=== PATIENT | male | born 1955 | race Caucasian/White ===

== ENCOUNTER 2024-10-03 09:13 | Day surgery (SDC) | payer OTHER ==
[2024-09-29 11:49] LABS: Absolute Eosinophils 0.1 K/uL (0-0.5); Absolute Monocytes 0.5 K/uL (0.1-1.3); Absolute Neutrophil 3.2 K/uL (1.8-8.0); Basophils % 0.5 % (0-1.3); Hematocrit 40.4 % (39.6-49.0); Hemoglobin 14.2 g/dL (13.6-17.9); Lymphocytes % 20.8 % (15.3-44.8); MCH 34.3 pg (27.0-35.0); MCHC 35.2 g/dL (32.0-36.0); MCV 97.5 fL (80-100); MPV 8.1 fL (7.6-11.3); Monocytes % 9.9 % (3.3-12.3); Neutrophils % 65.8 % (41.7-73.7); Nucleated Red Blood Cells % 0.1 % (0-0); Platelets 201 thou/uL (152-406); RBC Red Blood Cell Count 4.14 M/uL (4.33-5.43); Red Cell Distribution Width 13.6 % (12.1-15.2)
[2024-09-29 12:04] LABS: Anion Gap 6.2 mEq/L (5.0-15.0); Potassium 4.2 mEq/L (3.5-5.1)
--- NOTE | 2024-09-29 12:06 | EKG ---
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
[2024-10-03] MEDS: Ringers Lactate 1,000 ML IV ONE (10:00)
[2024-10-03] MEDS ORDERED: BACITRACIN OINTMENT 14 GM TUBE TOP ONE (11:50)
[2024-10-03] MEDS ORDERED: ONDANSETRON 4 MG/2 ML VIAL ONE (12:52)
[2024-10-03] MEDS ORDERED: LIDOCAINE 1% MPF 5 ML VIAL ONE (12:52)
[2024-10-03] MEDS ORDERED: MIDAZOLAM HCL 2 MG/2 ML INJ ONE (12:52)
[2024-10-03] MEDS ORDERED: propofoL 200 MG/20 ML VIAL IV ONE (12:52)
[2024-10-03] MEDS ORDERED: dexAMETHasone 10 MG/ML VIAL ONE (12:52)
[2024-10-03] MEDS ORDERED: ROCURONIUM 50 MG/5 ML VIAL IV ONE (12:52)
[2024-10-03] MEDS ORDERED: FENTANYL CITR 100 MCG/2 ML ONE (12:52)
[2024-10-03] MEDS ORDERED: GLYCOPYRROLATE 0.2 MG/ML SYR ONE ×3 (13:42→14:29)
[2024-10-03] MEDS: OXYMETAZOLINE HCL 0.05% 30ML NAS ONE (13:43)
[2024-10-03] MEDS: LIDOCAINE HCL/EPINEPHRINE 20 ML MDV ONE (13:44)
[2024-10-03] MEDS ORDERED: NEOSTIGMINE 1 MG/ML -10 ML VIAL ONE (14:29)
--- NOTE | 2024-10-03 14:55 | P.OP ---
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 The head of bed was turned 90 degrees. The patient's nasal hairs were trimmed using scissors and a nasal speculum with headlight for visualization. The patient was noted to have an S shaped septal deviation with stable right mid septal mucositis. There is no obvious ulcer ation or mass or clear sign of septal perforation. The increased risk of septal perforation was discussed with the patient during his preoperative visit. The septum was injected with 1% lidocaine with epinephrine. A total of 2 and half milliliters were used. The nose was packed with Afrin-soaked pledgets and the patient was prepped in a standard fashion for nasal surgery. Using a headlight and nasal speculum a right hemitransfixion incision was created along the caudal aspect of the nasal septum. Using a Robbin elevator the left mucoperichondrial/periosteal flap was elevated without difficulty. There was no evidence of any laceration of the mucosa. The right mucosal flap was elevated in similar fashion, taking care particularly around the area of mucositis. Despite the visible mucositis, the cartilaginous aspect of the mucosa appeared unremarkable and there was no visible sign of deep inflammation. There was no evidence of mucosal ulceration or perforation. Taking care to leave a 1 cm L-strut the cartilage was in sized and elevated from the floor of the nose and from at the osteo cartilaginous junction. The cartilage was removed with Arnold. Additional judicious removal of bone was made using Minaya rongeurs, [place] elevator and Arnold forceps. Overall this resulted in significant improvement in the patient's septal deviation bilaterally. A needlepoint Bovie the was used to perform submucosal ablation of the left and right inferior turbinate. The Bovie was inserted to its full unprotected length and at the inferior mid and upper portion of the right and then left turbinate. At each location the Bovie was activated for approximately 10 seconds to provide submucosal cauterization and ablation of the submucosal tissues. Minimal bleeding was noted. The previously removed cartilage was inspected on the back table. A 1 x 1.5 portion of the cartilage was cut and shaved to form a thin planar cartilage graft. This cartilage graft was then positioned between the mucosal flaps underlying the area of right mucosal inflammation. The purpose of graft placement was to reduce risk of septal perforation. The graft was secured to the mucosa using a through and through quilting stitch on a small Adrien needle. Once the mucosal flaps were well-approximated, the hemitransfixion incision was closed in a running fashion using a plain gut suture. Meraz splints were then placed in the right and left nasal cavity and secured to the septum using a 4-0 nylon suture. Rationale for splint placement includes protection of the mucosa with hopes of preventing drying and crusting of the right area of mucositis to aid in healing. Following completion of the procedure, all pledget and sponge counts were correct. The patient was returned to care of anesthesia for awakening, extubation and transferred to the recovery room. The patient appeared to be in stable condition. Disposition: The patient will be discharged home later today and follow-up with Dr. Stanley office in approximately 10 days for removal of Meraz splints. His is instructed in regards to nasal precautions and written postoperative instructions will be distributed prior to discharge as well. Complications: None Implants: Meraz Splints Fluids & blood products: see anesthesia Transferred to: Recovery Room Condition: Good
[2024-10-03 14:58] VITALS: O2SAT 97
[2024-10-03] MEDS ORDERED: OXYMETAZOLINE HCL 0.05% 30ML NAS ONE (15:43)
[2024-10-03 16:03] VITALS: BP 149/81; TEMP 97.3
== END 2024-10-03 15:50 | disposition home or self-care (01) ==
LOC: OR 09:13
PROVIDERS: ATTEND Otolaryngology
PROC: 09BL7ZZ Excision of Nasal Turbinate, Via Natural or Artificial Opening (ICD-10-PCS; 2024-10-03)
PROC: 09BM8ZZ Excision of Nasal Septum, Via Natural or Artificial Opening Endoscopic (ICD-10-PCS; principal; 2024-10-03 11:45)
DX: J34.2 Deviated nasal septum (principal); J34.89 Other specified disorders of nose and nasal sinuses; J34.3 Hypertrophy of nasal turbinates
CPT/HCPCS: 30520; 93005; 85025; 80048; 36415; 88300; 30802; J2704; J2710; J2003; J2250; J3010; J1100; J2405; J7120

== ENCOUNTER 2025-02-17 21:31 | Emergency (ER) | payer OTHER ==
--- OUTSIDE RECORDS SUMMARY | 2025-02-17 21:42 | XMS REPORT | Continuity of Care Document ---
Author Name Unknown Address [address] [facility] [address] [place] [address] [facility] Address [address] [facility]. [address] [place] [address] Care Team Providers Care Servicing Rep Name Role Phone Suleman PICKARD,MPH,FACP, Paul Primary Care Physician Roger Fragoso Attending Clinician Unavailable LIDA SANABRIA Attending Clinician Unavail able MARVIN MARTIN Attending Clinician Unavailab yamel QUINTANA MD Attending Clinician Unavailab GERMANIA Richardson Attending Clinician Unavailable JANNET SMITH Attending Clinician Unavailable [id number] Attending Clinician Unavailable HAM MOODY Attending Clinician Unavaila JUDAH Castro Attending Clinician Unavailabl e [id number] Attending Clinician Unavailable MARISELA DUQUE Attending Clinician Unavailab DOUGLAS Dolan Attending Clinician Unava ilable LAB90 Attending Clinician Unavailable DORA RICHARDSON Attending Clinician Unavailab MAUREEN Simmons Attending Clinician Unavail able LAB08 Attending Clinician Unavailable FELICIA HOLLOWAY Attending Clinician Unavailable CHUCHO YEPEZ Attending Clinician Unavailable TOMOGRAPHY, CK OPTICAL COHERENCE Attending Marlon solis Unavailable COVID-PFIZER VACC, CLEAR SO Attending Avinashia n Unavailable Lida Sanabria MD Attending Clinician [phone] ATUL SILVA Attending Clinician Unavailable Atul Silva MD Attending Clinician [phone] [id number] Attending Clinician Unavailable RENNY CHRISTOPHER Attending Clinician UnavailJannet Cabrera MD Attending Clinician [phone] COVID-PFIZER BOOSTER, CLEAR SO Attending Marlon solis Unavailable COVID-PFIZER BOOSTER, [place] Attending Clinici an Unavailable FLU, CLEAR SO Attending Clinician Unavailable ANGEL PAREKH APRN Attending Clinician UnavailALICE Villanueva M.D. Attending Clinician Unavailable ERNESTINA CORDOVA M.D. Attending Clinician Unavail SAMIRA Anguiano M.D. Attending Clinician UnaOTILIO Phillips D.O. Attending Clinician Unavail able Payers Payer Name Policy Type Policy Number Effective Date Expirati on Date Source [facility] HMO-POS 16 [id number] 2022 00:00:00 [place] [facility] [id number] O [id number] 2024 00:00:00 BCBS 2 [id number] 2019 00:00:00 Problems Condition Name Condition Details Condition Category Status Onset Date Resolution Date Last Treatment Date Treating Clinician Comments Source Type 2 diabetes mellitus without complicati on, without long-term current use of insulin (multi HCC) Type 2 diabetes mellitus without complicati on, without long-term current use of insulin (multi HCC) Disease Active 01-03 00:00: 00 Nohelia Powellold - Externa l Well adult exam Well adult exam Disease Active 11-26 00:00: 00 Nohelia Hyde - Externa l Restless leg syndrome Restless leg syndrome Disease Active 11-26 00:00: 00 Nohelia Sekylieold - Externa l 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 Active 07-04 00:00: 00 Nohelia Hyde - Externa shante Seropositi ve rheumatoid arthritis (multi HCC) Seropositi ve rheumatoid arthritis (multi HCC) Disease Active 2015-06 0 00:00: 00 Nohelia Hyde - Externa shante Arthralgia Arthralgia Disease Active 02-14 00:00: 00 Nohelia Hyde - Externa shante History of rheumatoid arthritis History of rheumatoid arthritis [facility] Encounter for monitoring of methotrexa te therapy Encounter for monitoring of methotrexa te therapy Problem Active [facility] Need for shingles vaccine Need for shingles vaccine Problem Active [facility] Non-recurr ent acute serous otitis media of left ear Non-recurr ent acute serous otitis media of left ear Problem Active [facility] Viral sinusitis Viral sinusitis Problem Active [facility] Need for hepatitis C screening test Need for hepatitis C screening test Problem Active [facility] Encounter for wellness examinatio n in adult Encounter for wellness examinatio n in adult Problem Active [facility] Hyperlipid emia Hyperlipid emia Problem Active [facility] Seropositi ve rheumatoid arthritis of multiple sites Seropositi ve rheumatoid arthritis of multiple sites Problem Active [facility] BMI 30.0-30.9, adult BMI 30.0-30.9, adult Problem Active [facility] Colon cancer screening Colon cancer screening Problem Active [facility] Wheezing Wheezing Problem Active [facility] Acute purulent bronchitis Acute purulent bronchitis Problem Active [facility] Elevated blood pressure reading without diagnosis of hypertensi on Elevated blood pressure reading without diagnosis of hypertensi on Problem Active [facility] BMI 31.0-31.9, adult BMI 31.0-31.9, adult Problem Active [facility] [id number] Mixed hyperlipid emia Problem [facility] [id number] Essential hypertensi on Problem [facility] [id number] Rheumatoid arteritis Problem [facility] Deviated septum Deviated septum Disease Active Nohelia Powellold - Externa l Family History Family Member Diagnosis Comments Start Date Stop Date Sourc e Grandmother Family history of leukemia [facility] Mother Family history of sy stemic lupus erythematosus [facility] Father Family history of Emphysema, compensatory [facility] Social History Social Habit Start Date Stop Date Quantity Comments Source History of Tobacco Use [facility] Sex Assigned At [facility] Exposure to SARS-CoV-2 (event) Not sure Nohelia duff History of Occupation Nohelia Hyde - External History SDOH Alcohol Frequency Nohelia song - External History SDOH Alcohol Std Drinks Nohelia duff - External History SDOH Alcohol Binge Nohelia Hyde - External Gender identity Mikki Powellold - External Sexual orientation Shanon Powellold - External Alcoholic beverage intake 2024-07-07 00:00:00 2024-07-07 00:00:00 Current drinker of alcohol (finding) Nohelia Hyde - External History of Social function 2023-11-27 00:00:00 2023-11-27 00:00:00 Nohelia Hdye - External Alcohol intake 2023-08-23 00:00:00 2023-08-23 00:00:00 Current drinker of alcohol (finding) Nohelia Hyde - External Tobacco use and exposure 2021-09-01 00:00:00 2021-09-01 00:00:00 Smokeless tobacco non-user Nohelia Hyde - External Sex 2012-06-19 19:37:33 2012-06-19 19:37:33 Male (finding) Nohelia Hyde - External Alcohol Comment 2008-04-08 00:00:00 2008-04-08 00:00:00 rarely Nohelia Hyde - External Smoking Status Start Date Stop Date Source Ex-smoker (finding) [facility] Never Smoker [facility] Medications Ordered Medication Name Filled Medication Name Start Date Stop Date Current Medication? Ordering Clinician Indication Dosage Frequency Signature (SIG) Comments Components Source Fexofenadin e (Cierra Allergy) 180 MG oral Tablet 07-07 11:18: 25 Yes 180mg QD Take 1 tablet (180 mg total) by mouth daily. Nohelia frey Amoxicillin -Pot Clavulanate 500-125 MG oral Tablet 07-07 00:00: 00 Yes [id number] 1{tbl} Take 1 tablet by mouth every 12 hours Please take with food. Nohelia frey Scopolamine (TRANSDERM- SCOP) 1 MG/3DAYS transdermal PATCH 72 HR 07-07 00:00: 00 Yes [id number] 1{patch } Place 1 patch onto the skin every 3 days. Nohelia frey Methylpredn isolone Acetate (DEPO-MEDRO L) [80 mg/ml] 2023-06 10:39: 39 No [id number] 80mg 80 mg, intramuscu lar, ONCE, On Sun05/08/24 at 1045, For 1 dose Nohelia frey Fexofenadin e (Cierra Allergy) 180 MG oral Tablet 2023-06 10:25: 20 Yes 180mg QD Take 1 tablet (180 mg total) by mouth daily. Nohelia frey Blood Glucose Monitoring Suppl (ONE TOUCH ULTRA 2) w/Device does not apply Kit 2023-06 00:00: 00 Yes [id number] USE DIRECTED TWICE A DAY. Nohelia frey Doxycycline Hyclate 100 MG oral Tablet 2023-06 00:00: 00 07-07 00:00 :00 No [id number] 100mg Q.5D Take 1 tablet (100 mg total) by mouth 2 times daily. Nohelia frey Blood Glucose Monitoring Suppl (ONE TOUCH ULTRA 2) w/Device does not apply Kit 01-08 00:00: 00 Yes [id number] USE DIRECTED TWICE A DAY. Nohelia frey Fexofenadin e (Cierra Allergy) 180 MG oral Tablet 01-03 08:01: 17 Yes 180mg QD Take 1 tablet (180 mg total) by mouth daily. Nohelia frey Blood Glucose Monitoring Suppl (Blood Glucose Monitor System) w/Device does not apply Kit 01-03 00:00: 00 Yes [id number] Use as directed twice daily. Nohelia frey Glucose Blood in vitro Strip 01-03 00:00: 00 Yes [id number] 1{each} QD 1 each by other route daily Use as directed twice daily. Nohelia frey Lancets 33G does not apply Misc 01-03 00:00: 00 Yes [id number] 1{each} Q.5D 1 each by does not apply route 2 times daily. Nohelia frey Fexofenadin e (Cierra Allergy) 180 MG oral Tablet 01-02 13:05: 56 Yes 180mg QD Take 1 tablet (180 mg total) by mouth daily. Nohelia frey Blood Glucose Monitoring Suppl (Blood Glucose Monitor System) w/Device does not apply Kit 12-09 00:00: 00 01-03 00:00 :00 No [id number] Use as directed twice daily. Nohelia frey Glucose Blood in vitro Strip 12-09 00:00: 00 01-03 00:00 :00 No [id number] 1{each} QD 1 each by other route daily Use as directed twice daily. Nohelia frey Lancets 33G does not apply Misc 12-09 00:00: 00 01-03 00:00 :00 No [id number] 1{each} Q.5D 1 each by does not apply route 2 times daily. Nohelia frey Metformin HCl 500 MG oral Tablet 12-01 00:00: 00 05-08 00:00 :00 No [id number] 500mg Take 1 tablet (500 mg total) by mouth in the morning and 1 tablet (500 mg total) in the evening. Take with meals. Nohelia frey Fexofenadin e (Cierra Allergy) 180 MG oral Tablet 11-26 07:57: 11 Yes 180mg QD Take 1 tablet (180 mg total) by mouth daily. Nohelia frey ROPINIROLE HYDROCHLORI DE 0.5 MG oral Tablet 11-26 00:00: 00 01-03 00:00 :00 No [id number] .75mg Take 1.5 tablets (0.75 mg total) by mouth at bedtime. Nohelia frey ROPINIROLE HYDROCHLORI DE 0.5 MG oral Tablet 18 00:00: 00 Yes .5mg Take 1 tablet (0.5 mg total) by mouth at bedtime. Nohelia frey Atorvastati n Calcium 20 MG oral Tablet 3-15 00:00: 00 Yes 20mg QD Take 1 tablet (20 mg total) by mouth daily. Nohelia frey Mometasone Furoate 50 MCG/ACT nasal Suspension 1-15 00:00: 00 08-19 00:00 :00 No 50ug Use 1 spray (50 mcg total) in each nostril 2 times daily A DAY. Nohelia frey Omeprazole 40 MG oral Delayed Release Capsule 2022-06 0-27 00:00: 00 Yes [id number] 40mg Take 1 capsule (40 mg total) by mouth daily. Nohelia frey Amoxicillin (AMOXIL) 500 MG oral Capsule 2022-06 0- 00:00: 00 Yes [id number] 1000mg Take 2 capsules (1,000 mg total) by mouth 2 times daily. Nohelia frey Clarithromy barbara 500 MG oral Tablet 2022-06 0 00:00: 00 Yes [id number] 500mg Take 1 tablet (500 mg total) by mouth 2 times daily. Nohelia frey Mometasone Furoate 50 MCG/ACT nasal Suspension 17 00:00: 00 Yes SPRAY 1 SPRAY INTO EACH NOSTRIL TWICE A DAY Nohelia frey FLUTICASONE PROPIONATE, NASAL, 50 MCG/ACT nasal Suspension 09-21 10:09: 33 09-21 00:00 :00 No 50ug Use 1 spray (50 mcg total) in each nostril daily Nohelia frey Mometasone Furoate (Nasonex) 50 MCG/ACT nasal Suspension 20 00:00: 00 Yes 50ug Use 1 spray (50 mcg total) in each nostril 2 times daily Nohelia frey Folic Acid 1 MG oral tablet 1-31 00:00: 00 Yes [id number] 2mg QD Take 2 tablets (2 mg total) by mouth daily Nohelia Ambrizvastati n Calcium 20 MG oral Tablet 07-04 00:00: 00 Yes 20mg Take 1 tablet (20 mg total) by mouth daily Nohelia frey Fexofenadin e-Pseudoeph edrine 60-120 MG oral Tablet 12 Hour Sustained Release 07-04 00:00: 00 12-07 00:00 :00 No 1{tbl} Take 1 tablet by mouth 2 times daily Nohelia frey Atorvastati n Calcium 20 MG oral Tablet 2021-06 00:00: 00 07-04 00:00 :00 No 20mg Take 1 tablet (20 mg total) by mouth daily Nohelia frey Folic Acid 1 MG oral tablet 2021-06 00:00: 00 07-04 00:00 :00 No [id number] 2mg Take 2 tablets (2 mg total) by mouth daily Nohelia frey Folic Acid 1 MG oral tablet 07-28 00:00: 00 Yes [id number] 2mg Take 2 tablets (2 mg total) by mouth daily Nohelia frey ELECTROLYTE SOLN (GOLYTELY) 236 g oral Recon Soln 07-13 00:00: 00 07-04 00:00 :00 No As directed Nohelia frey Sod Picosulfate -Mag Ox-Cit Acd (Clenpiq) 10-3.5-12 MG-GM -GM/160ML oral Solution 07-04 00:00: 00 Yes [id number] Instructio n given to patient in clinic. Use as directed by provider during office visit. Nohelia Hyde Cetirizine HCl (ZYRTEC OR) 2020-06 13:57: 03 05-06 00:00 :00 No 1{tbl} Take 1 tablet by mouth daily Nohelia Hyde Folic Acid 1 MG oral tablet 2020-06 00:00: 00 Yes [id number] 2mg Take 2 tablets (2 mg total) by mouth daily Nohelia Ambrizvastakylie carl Calcium 20 MG oral Tablet 2020-06 00:00: 00 Yes 20mg Take 1 tablet (20 mg total) by mouth daily Nohelia frey Fexofenadin e-Pseudoeph edrine 60-120 MG oral Tablet 12 Hour Sustained Release 2020-06 00:00: 00 07-04 00:00 :00 No 1{tbl} Take 1 tablet by mouth 2 times daily Nohelia frey Cetirizine HCl (ZYRTEC OR) 2020-06 0 13:30: 04 Yes 1{tbl} Take 1 tablet by mouth daily Nohelia Hyde Atorvastati n Calcium 20 MG oral Tablet 02-18 00:00: 00 Yes 20mg Take 1 tablet (20 mg total) by mouth daily Nohelia Hyde predniSONE 20 MG Oral Tablet predniSONE 20 MG Oral Tablet 2018-06 00:00: 00 Yes ANGEL IGLESIA FACILITY SERVICE MANAGER Take 1 tab by mouth twice daily for 5 days [facility] Doxycycline Monohydrate 100 MG Oral Capsule Doxycycline Monohydrate 100 MG Oral Capsule 2018-06 00:00: 00 Yes ANGEL IGLESIA FACILITY SERVICE MANAGER Q12H TAKE 1 CAPSULE EVERY 12 HOURS DAILY. [facility] Benzonatate 200 MG Oral Capsule Benzonatate 200 MG Oral Capsule 2018-06 00:00: 00 Yes ANGEL PAREKH FACILITY SERVICE MANAGER TAKE 1 CAPSULE BY MOUTH EVERY 8 HOURS NEEDED FOR COUGH [facility] Promethazin e-DM 6.25-15 MG/5ML Oral Syrup Promethazin e-DM 6.25-15 MG/5ML Oral Syrup 2018-06 00:00: 00 Yes ANGEL XIAOE FACILITY SERVICE MANAGER TAKE 5 ML EVERY 4 TO 6 HOURS NEEDED FOR COUGH. [facility] Atorvastati n Calcium 20 MG Oral Tablet Atorvastati n Calcium 20 MG Oral Tablet 2017-06 00:00: 00 Yes OTILIO Masterson.O. TAKE ONE TABLET BY MOUTH EVERY NIGHT AT BEDTIME NEEDS 6 MONTH FOLLOW-UP AND LABS [facility] Centrum Oral Tablet Centrum Oral Tablet 10-02 00:00: 00 Yes 1 QD TAKE 1 TABLET DAILY. [facility] ZyrTEC Allergy 10 MG Oral Capsule ZyrTEC Allergy 10 MG Oral Capsule 12-26 00:00: 00 Yes 1 QD TAKE 1 CAPSULE DAILY PRN [facility] Folic Acid 1 MG Oral Tablet Folic Acid 1 MG Oral Tablet 09-26 00:00: 00 Yes ALICE CERRATO M.D. 2 QD TAKE 2 TABLETS BY MOUTH DAILY [facility] [place] 3 1200 MG Oral Capsule [place] 3 1200 MG Oral Capsule 07-18 00:00: 00 Yes TAKE DIRECTED. [facility] Methotrexat e 2.5 MG Oral Tablet Methotrexat e 2.5 MG Oral Tablet 07-18 00:00: 00 Yes ALICE CERRATO M.D. 6 1xW TAKE 6 TABLET WEEKLY [facility] Naproxen 500 MG Oral Tablet Naproxen 500 MG Oral Tablet 07-18 00:00: 00 Yes ALICE CERRATO M.D. Q12H TAKE 1 TABLET EVERY 12 HOURS PRN pain AFTER MEALS [facility] Hydroxychlo roquine Sulfate 200 MG Hydroxychlo roquine Sulfate 200 MG No Hydroxychl oroquine Sulfate 200 MG Pantoprazol e Sodium 40 MG Pantoprazol e Sodium 40 MG No QD Pantoprazo le Sodium 40 MG rOPINIRole HCl 1 MG rOPINIRole HCl 1 MG No rOPINIRole HCl 1 MG Naproxen 500 MG Naproxen 500 MG No Naproxen 500 MG Methotrexat e Sodium 2.5 MG Methotrexat e Sodium 2.5 MG No Methotrexa te Sodium 2.5 MG Atorvastati n Calcium 20 MG Atorvastati n Calcium 20 MG No 1{table t} QD Atorvastat in Calcium 20 MG Lisinopril- hydroCHLORO thiazide 20-12.5 MG Lisinopril- hydroCHLORO thiazide 20-12.5 MG No 1{table t} BID Lisinopril -hydroCHLO ROthiazide 20-12.5 MG Folic Acid 1 MG Folic Acid 1 MG No 1{table t} QD Folic Acid 1 MG Immunizations Ordered Immunization Name Filled Immunization Name Date Status Comments Source COVID-19 Bivalent vaccine [facility] 2022-04-28 00:00:00 Sidney Barrera COVID-19 Bivalent Booster vaccine [facility] 2022-04-28 00:00:00 Sidney Hyde External COVID-19 Bivalent Booster vaccine PFIZER 2022-04-28 00:00:00 Completed Nohelia Seybold - External COVID-19 Bivalent Booster vaccine PFIZER 2022-04-28 00:00:00 Completed Nohelia Seybold - External COVID-19 Bivalent Booster vaccine PFIZER 2022-04-28 00:00:00 Completed Nohelia Seybold - External COVID-19 Bivalent Booster vaccine PFIZER 2022-04-28 00:00:00 Completed Nohelia Seybold - External COVID-19 Bivalent Booster vaccine PFIZER 2022-04-28 00:00:00 Completed Nohelia Seybold - External COVID-19 Bivalent vaccine PFIZER 2022-04-28 00:00:00 Completed Nohelia Seybold - External Influenza vaccine, quadrivalent, adjuvanted 2022-03-11 00:00:00 Completed Nohelia Seybold - External Influenza vaccine, quadrivalent, adjuvanted 2022-03-11 00:00:00 Completed Nohelia Seybold - External Influenza vaccine, quadrivalent, adjuvanted 2022-03-11 00:00:00 Completed Nohelia Seybold - External Influenza vaccine, quadrivalent, adjuvanted 2022-03-11 00:00:00 Completed Nohelia Seybold - External Influenza vaccine, quadrivalent, adjuvanted 2022-03-11 00:00:00 Completed Nohelia Seybold - External Influenza vaccine, quadrivalent, adjuvanted 2022-03-11 00:00:00 Completed Nohelia Seybold - External Influenza vaccine, quadrivalent, adjuvanted 2022-03-11 00:00:00 Completed Nohelia Seybold - External Influenza vaccine, quadrivalent, adjuvanted 2022-03-11 00:00:00 Completed Nohelia Seybold - External COVID-19 VACCINE PFIZER + (Renteria cap) 2021-12-01 00:00:00 Completed Nohelia Seybold - External COVID-19 VACCINE PFIZER + (Renteria cap) 2021-12-01 00:00:00 Completed Nohelia Seybold - External COVID-19 VACCINE PFIZER + (Renteria cap) 2021-12-01 00:00:00 Completed Nohelia Seybold - External COVID-19 VACCINE PFIZER + (Renteria cap) 2021-12-01 00:00:00 Completed Nohelia Seybold - External COVID-19 VACCINE PFIZER 12+ (Renteria cap) 2021-12-01 00:00:00 Completed Nohelia Seybold - External COVID-19 VACCINE PFIZER 12+ (Renteria cap) 2021-12-01 00:00:00 Completed Nohelia Seybold - External COVID-19 VACCINE PFIZER 12+ (Renteria cap) 2021-12-01 00:00:00 Completed Nohelia Seybold - External COVID-19 VACCINE PFIZER 12+ (Renteria cap) 2021-12-01 00:00:00 Completed Nohelia Seybold - External COVID-19 VACCINE PFIZER 12+ (Renteria cap) 2021-12-01 00:00:00 Completed Nohelia Seybold - External COVID-19 VACCINE PFIZER 12+ (Renteria cap) 2021-12-01 00:00:00 Completed Nohelia Seybold - External Pneumococcal Vaccine, Polysaccharide 2021-05-06 00:00:00 Completed Nohelia Seybold Pneumococcal Vaccine, Polysaccharide 2021-05-06 00:00:00 Completed Nohelia Seybold Pneumococcal Vaccine, Polysaccharide 2021-05-06 00:00:00 Completed Nohelia Seybold - External Pneumococcal Vaccine, Polysaccharide 2021-05-06 00:00:00 Completed Nohelia Seybold - External Pneumococcal Vaccine, Polysaccharide 2021-05-06 00:00:00 Completed Nohelia Seybold - External Pneumococcal Vaccine, Polysaccharide 2021-05-06 00:00:00 Completed Nohelia Seybold - External Pneumococcal Vaccine, Polysaccharide 2021-05-06 00:00:00 Completed Nohelia Seybold - External Pneumococcal Vaccine, Polysaccharide 2021-05-06 00:00:00 Completed Nohelia Seybold - External Pneumococcal Vaccine, Polysaccharide 2021-05-06 00:00:00 Completed Nohelia Seybold - External Pneumococcal Vaccine, Polysaccharide 2021-05-06 00:00:00 Completed Nohelia Seybold - External Pneumococcal Vaccine, Polysaccharide 2021-05-06 00:00:00 Completed Nohelia Seybold - External Pneumococcal Vaccine, Polysaccharide 2021-05-06 00:00:00 Completed Nohelia Seybold - External Pneumococcal Vaccine, Polysaccharide 2021-05-06 00:00:00 Completed Nohelia Seybold Covid-19 Vaccine (Pfizer), Mrna-lnp, Jl Protein, Pf, 30mcg/0.3ml,IM 2021-03-31 00:00:00 Completed Nohelia Seybold Covid-19 Vaccine (Pfizer), Mrna-lnp, Jl Protein, Pf, 30mcg/0.3ml,IM 2021-03-31 00:00:00 Completed Nohelia Seybold Covid-19 Vaccine (Pfizer), Mrna-lnp, Jl Protein, Pf, 30mcg/0.3ml,IM 2021-03-31 00:00:00 Completed Nohelia Seybold - External Covid-19 Vaccine (Pfizer), Mrna-lnp, Jl Protein, Pf, 30mcg/0.3ml,IM 2021-03-31 00:00:00 Completed Nohelia Seybold - External Covid-19 Vaccine (Pfizer), Mrna-lnp, Jl Protein, Pf, 30mcg/0.3ml,IM 2021-03-31 00:00:00 Completed Nohelia Seybold - External Covid-19 Vaccine (Pfizer), Mrna-lnp, Jl Protein, Pf, 30mcg/0.3ml,IM 2021-03-31 00:00:00 Completed Nohelia Seybold - External Covid-19 Vaccine (Pfizer), Mrna-lnp, Jl Protein, Pf, 30mcg/0.3ml,IM 2021-03-31 00:00:00 Completed Nohelia Seybold - External Covid-19 Vaccine (Pfizer), Mrna-lnp, Jl Protein, Pf, 30mcg/0.3ml,IM 2021-03-31 00:00:00 Completed Nohelia Seybold - External Covid-19 Vaccine (Pfizer), Mrna-lnp, Jl Protein, Pf, 30mcg/0.3ml,IM 2021-03-31 00:00:00 Completed Nohelia Seybold - External Covid-19 Vaccine (Pfizer), Mrna-lnp, Jl Protein, Pf, 30mcg/0.3ml,IM 2021-03-31 00:00:00 Completed Nohelia Seybold - External Covid-19 Vaccine (Pfizer), Mrna-lnp, Jl Protein, Pf, 30mcg/0.3ml,IM 2021-03-31 00:00:00 Completed Nohelia Seybold - External Covid-19 Vaccine ([email or web address]), Mrna-lnp, Jl Protein, Pf, 30mcg/0.3ml,IM 2021-03-31 00:00:00 Completed Nohelia Seybold - External Covid-19 Vaccine (Pfizer), Mrna-lnp, Jl Protein, Pf, 30mcg/0.3ml,IM 2021-03-31 00:00:00 Completed Nohelia Seybold Influenza Virus Vaccine, Quadrivalent, High Dose, Age 65 And Up 2021-02-26 00:00:00 Completed Nohelia Seybold Influenza Virus Vaccine, Quadrivalent, High Dose, Age 65 And Up 2021-02-26 00:00:00 Completed Nohelia Seybold Influenza Virus Vaccine, Quadrivalent, High Dose, Age 65 And Up 2021-02-26 00:00:00 Completed Nohelia Seybold - External Influenza Virus Vaccine, Quadrivalent, High Dose, Age 65 And Up 2021-02-26 00:00:00 Completed Nohelia Seybold - External Influenza Virus Vaccine, Quadrivalent, High Dose, Age 65 And Up 2021-02-26 00:00:00 Completed Nohelia Seybold - External Influenza Virus Vaccine, Quadrivalent, High Dose, Age 65 And Up 2021-02-26 00:00:00 Completed Nohelia Seybold - External Influenza Virus Vaccine, Quadrivalent, High Dose, Age 65 And Up 2021-02-26 00:00:00 Completed Nohelia Seybold Influenza Virus Vaccine, Quadrivalent, High Dose, Age 65 And Up 2021-02-26 00:00:00 Completed Nohelia Seybold - External Influenza Virus Vaccine, Quadrivalent, High Dose, Age 65 And Up 2021-02-26 00:00:00 Completed Nohelia Seybold - External Influenza Virus Vaccine, Quadrivalent, High Dose, Age 65 And Up 2021-02-26 00:00:00 Completed Nohelia Seybold - External Influenza Virus Vaccine, Quadrivalent, High Dose, Age 65 And Up 2021-02-26 00:00:00 Completed Nohelia Seybold - External Influenza Virus Vaccine, Quadrivalent, High Dose, Age 65 And Up 2021-02-26 00:00:00 Completed Nohelia Seybold - External Influenza Virus Vaccine, Quadrivalent, High Dose, Age 65 And Up 2021-02-26 00:00:00 Completed Nohelia Seybold - External Influenza Virus Vaccine, Quadrivalent, High Dose, Age 65 And Up 2021-02-26 00:00:00 Completed Nohelia Seybold Covid-19 Vaccine (Pfizer), Mrna-lnp, Jl Protein, Pf, 30mcg/0.3ml,IM 2020-09-03 00:00:00 Completed Nohelia Seybold Covid-19 Vaccine (Pfizer), Mrna-lnp, Jl Protein, Pf, 30mcg/0.3ml,IM 2020-09-03 00:00:00 Completed Nohelia Seybold Covid-19 Vaccine (Pfizer), Mrna-lnp, Jl Protein, Pf, 30mcg/0.3ml,IM 2020-09-03 00:00:00 Completed Nohelia Seybold - External Covid-19 Vaccine (Pfizer), Mrna-lnp, Jl Protein, Pf, 30mcg/0.3ml,IM 2020-09-03 00:00:00 Completed Nohelia Seybold - External Covid-19 Vaccine (Pfizer), Mrna-lnp, Jl Protein, Pf, 30mcg/0.3ml,IM 2020-09-03 00:00:00 Completed Nohelia Seybold - External Covid-19 Vaccine (Pfizer), Mrna-lnp, Jl Protein, Pf, 30mcg/0.3ml,IM 2020-09-03 00:00:00 Completed Nohelia Seybold - External Covid-19 Vaccine (Pfizer), Mrna-lnp, Jl Protein, Pf, 30mcg/0.3ml,IM 2020-09-03 00:00:00 Completed Nohelia Seybold Covid-19 Vaccine (Pfizer), Mrna-lnp, Jl Protein, Pf, 30mcg/0.3ml,IM 2020-09-03 00:00:00 Completed Nohelia Seybold - External Covid-19 Vaccine (Pfizer), Mrna-lnp, Jl Protein, Pf, 30mcg/0.3ml,IM 2020-09-03 00:00:00 Completed Nohelia Seybold - External Covid-19 Vaccine (Pfizer), Mrna-lnp, Jl Protein, Pf, 30mcg/0.3ml,IM 2020-09-03 00:00:00 Completed Nohelia Seybold - External Covid-19 Vaccine (Pfizer), Mrna-lnp, Jl Protein, Pf, 30mcg/0.3ml,IM 2020-09-03 00:00:00 Completed Nohelia Seybold - External Covid-19 Vaccine (Pfizer), Mrna-lnp, Jl Protein, Pf, 30mcg/0.3ml,IM 2020-09-03 00:00:00 Completed Nohelia Seybold - External Covid-19 Vaccine (Pfizer), Mrna-lnp, Jl Protein, Pf, 30mcg/0.3ml,IM 2020-09-03 00:00:00 Completed Nohelia Seybold - External Covid-19 Vaccine (Pfizer), Mrna-lnp, Jl Protein, Pf, 30mcg/0.3ml,IM 2020-09-03 00:00:00 Completed Nohelia Seybold Covid-19 Vaccine (Pfizer), Mrna-lnp, Jl Protein, Pf, 30mcg/0.3ml,IM 2020-08-13 00:00:00 Completed Nohelia Seybold Covid-19 Vaccine (Pfizer), Mrna-lnp, Jl Protein, Pf, 30mcg/0.3ml,IM 2020-08-13 00:00:00 Completed Nohelia Seybold Covid-19 Vaccine (Pfizer), Mrna-lnp, Jl Protein, Pf, 30mcg/0.3ml,IM 2020-08-13 00:00:00 Completed Nohelia Seybold - External Covid-19 Vaccine (Pfizer), Mrna-lnp, Jl Protein, Pf, 30mcg/0.3ml,IM 2020-08-13 00:00:00 Completed Nohelia Seybold - External Covid-19 Vaccine (Pfizer), Mrna-lnp, Jl Protein, Pf, 30mcg/0.3ml,IM 2020-08-13 00:00:00 Completed Nohelia Seybold - External Covid-19 Vaccine (Pfizer), Mrna-lnp, Jl Protein, Pf, 30mcg/0.3ml,IM 2020-08-13 00:00:00 Completed Nohelia Seybold - External Covid-19 Vaccine (Pfizer), Mrna-lnp, Jl Protein, Pf, 30mcg/0.3ml,IM 2020-08-13 00:00:00 Completed Nohelia Seybold Covid-19 Vaccine (Pfizer), Mrna-lnp, Jl Protein, Pf, 30mcg/0.3ml,IM 2020-08-13 00:00:00 Completed Nohelia Seybold - External Covid-19 Vaccine (Pfizer), Mrna-lnp, Jl Protein, Pf, 30mcg/0.3ml,IM 2020-08-13 00:00:00 Completed Nohelia Seybold - External Covid-19 Vaccine (Pfizer), Mrna-lnp, Jl Protein, Pf, 30mcg/0.3ml,IM 2020-08-13 00:00:00 Completed Nohelia Seybold - External Covid-19 Vaccine (Pfizer), Mrna-lnp, Jl Protein, Pf, 30mcg/0.3ml,IM 2020-08-13 00:00:00 Completed Nohelia Seybold - External Covid-19 Vaccine (Pfizer), Mrna-lnp, Jl Protein, Pf, 30mcg/0.3ml,IM 2020-08-13 00:00:00 Completed Nohelia Seybold - External Covid-19 Vaccine (Pfizer), Mrna-lnp, Jl Protein, Pf, 30mcg/0.3ml,IM 2020-08-13 00:00:00 Completed Nohelia Seybold - External Covid-19 Vaccine (Pfizer), Mrna-lnp, Jl Protein, Pf, 30mcg/0.3ml,IM 2020-08-13 00:00:00 Completed Nohelia Seybold Influenza Virus Vaccine, age 6 months and up 2020-02-25 00:00:00 Completed Nohelia Seybold Influenza Virus Vaccine, No Preserv, age 6 months and up 2020-02-25 00:00:00 Completed Nohelia Seybold Influenza Virus Vaccine, age 6 months and up 2020-02-25 00:00:00 Completed Nohelia Seybold Influenza Virus Vaccine, No Preserv, age 6 months and up 2020-02-25 00:00:00 Completed Nohelia Seybold Influenza Virus Vaccine, age 6 months and up 2020-02-25 00:00:00 Completed Nohelia Seybold - External Influenza Virus Vaccine, No Preserv, age 6 months and up 2020-02-25 00:00:00 Completed Nohelia Seybold - External Influenza Virus Vaccine, age 6 months and up 2020-02-25 00:00:00 Completed Nohelia Seybold - External Influenza Virus Vaccine, No Preserv, age 6 months and up 2020-02-25 00:00:00 Completed Nohelia Seybold - External Influenza Virus Vaccine, age 6 months and up 2020-02-25 00:00:00 Completed Nohelia Seybold - External Influenza Virus Vaccine, No Preserv, age 6 months and up 2020-02-25 00:00:00 Completed Nohelia Seybold - External Influenza Virus Vaccine, age 6 months and up 2020-02-25 00:00:00 Completed Nohelia Seybold Influenza Virus Vaccine, age 6 months and up 2020-02-25 00:00:00 Completed Nohelia Seybold - External Influenza Virus Vaccine, No Preserv, age 6 months and up 2020-02-25 00:00:00 Completed Nohelia Seybold - External Influenza Virus Vaccine, age 6 months and up 2020-02-25 00:00:00 Completed Nohelia Seybold - External Influenza Virus Vaccine, No Preserv, age 6 months and up 2020-02-25 00:00:00 Completed Nohelia Seybold - External Influenza Virus Vaccine, age 6 months and up 2020-02-25 00:00:00 Completed Nohelia Seybold - External Influenza Virus Vaccine, No Preserv, age 6 months and up 2020-02-25 00:00:00 Completed Nohelia Seybold - External Influenza Virus Vaccine, age 6 months and up 2020-02-25 00:00:00 Completed Nohelia Seybold - External Influenza Virus Vaccine, No Preserv, age 6 months and up 2020-02-25 00:00:00 Completed Nohelia Seybold - External Influenza Virus Vaccine, age 6 months and up 2020-02-25 00:00:00 Completed Nohelia Seybold - External Influenza Virus Vaccine, No Preserv, age 6 months and up 2020-02-25 00:00:00 Completed Nohelia Seybold - External Influenza Virus Vaccine, age 6 months and up 2020-02-25 00:00:00 Completed Nohelia Seybold - External Influenza Virus Vaccine, No Preserv, age 6 months and up 2020-02-25 00:00:00 Completed Nohelia Seybold - External Influenza Virus Vaccine, age 6 months and up 2020-02-25 00:00:00 Completed Nohelia Seybold - External Influenza Virus Vaccine, No Preserv, age 6 months and up 2020-02-25 00:00:00 Completed Nohelia Seybold - External Influenza Virus Vaccine, age 6 months and up 2020-02-25 00:00:00 Completed Nohelia Seybold Influenza Virus Vaccine, No Preserv, age 6 months and up 2020-02-25 00:00:00 Completed Nohelia Seybold Influenza Virus Vaccine, High Dose, Age 65 And Up 2019-02-20 00:00:00 Completed Nohelia Seybold Influenza Virus Vaccine, High Dose, Age 65 And Up 2019-02-20 00:00:00 Completed Nohelia Seybold Influenza Virus Vaccine, High Dose, Age 65 And Up 2019-02-20 00:00:00 Completed Nohelia Seybold - External Influenza Virus Vaccine, High Dose, Age 65 And Up 2019-02-20 00:00:00 Completed Nohelia Seybold - External Influenza Virus Vaccine, High Dose, Age 65 And Up 2019-02-20 00:00:00 Completed Nohelia Seybold - External Influenza Virus Vaccine, High Dose, Age 65 And Up 2019-02-20 00:00:00 Completed Nohelia Seybold - External Influenza Virus Vaccine, High Dose, Age 65 And Up 2019-02-20 00:00:00 Completed Nohelia Seybold - External Influenza Virus Vaccine, High Dose, Age 65 And Up 2019-02-20 00:00:00 Completed Nohelia Seybold - External Influenza Virus Vaccine, High Dose, Age 65 And Up 2019-02-20 00:00:00 Completed Nohelia Seybold - External Influenza Virus Vaccine, High Dose, Age 65 And Up 2019-02-20 00:00:00 Completed Nohelia Seybold - External Influenza Virus Vaccine, High Dose, Age 65 And Up 2019-02-20 00:00:00 Completed Nohelia Seybold - External Influenza Virus Vaccine, High Dose, Age 65 And Up 2019-02-20 00:00:00 Completed Nohelia Seybold - External Influenza Virus Vaccine, High Dose, Age 65 And Up 2019-02-20 00:00:00 Completed Nohelia Hyde Influenza 2019-02-20 00:00:00 Completed [facility] Shingrix 50 MCG Intramuscular Suspension Reconstituted 2019-02-19 09:51:00 Completed [facility] Shingles IM (Shingrix) 2019-02-19 00:00:00 Completed Nohelia Powellold Shingles IM (Shingrix) 2019-02-19 00:00:00 Completed Nohelia Sekylieold Shingles IM (Shingrix) 2019-02-19 00:00:00 Completed Nohelia Seybold - External Shingles IM (Shingrix) 2019-02-19 00:00:00 Completed Nohelia Seybold - External Shingles IM (Shingrix) 2019-02-19 00:00:00 Completed Nohelia Seybold - External Shingles IM (Shingrix) 2019-02-19 00:00:00 Completed Nohelia Seybold - External Shingles IM (Shingrix) 2019-02-19 00:00:00 Completed Nohelia Seybold - External Shingles IM (Shingrix) 2019-02-19 00:00:00 Completed Nohelia Seybold - External Shingles IM (Shingrix) 2019-02-19 00:00:00 Completed Nohelia Seybold - External Shingles IM (Shingrix) 2019-02-19 00:00:00 Completed Nohelia Seybold - External Shingles IM (Shingrix) 2019-02-19 00:00:00 Completed Nohelia Seybold - External Shingles IM (Shingrix) 2019-02-19 00:00:00 Completed Nohelia Seybold - External Shingles IM (Shingrix) 2019-02-19 00:00:00 Completed Nohelia Seybold Shingles IM (Shingrix) 2018-10-16 00:00:00 Completed Nohelia Seybold Shingles IM (Shingrix) 2018-10-16 00:00:00 Completed Nohelia Seybold Shingles IM (Shingrix) 2018-10-16 00:00:00 Completed Nohelia Seybold - External Shingles IM (Shingrix) 2018-10-16 00:00:00 Completed Nohelia Seybold - External Shingles IM (Shingrix) 2018-10-16 00:00:00 Completed Nohelia Seybold - External Shingles IM (Shingrix) 2018-10-16 00:00:00 Completed Nohelia Seybold Shingles IM (Shingrix) 2018-10-16 00:00:00 Completed Nohelia Seybold - External Shingles IM (Shingrix) 2018-10-16 00:00:00 Completed Nohelia Seybold - External Shingles IM (Shingrix) 2018-10-16 00:00:00 Completed Nohelia Seybold - External Shingles IM (Shingrix) 2018-10-16 00:00:00 Completed Nohelia Seybold - External Shingles IM (Shingrix) 2018-10-16 00:00:00 Completed Nohelia Seybold - External Shingles IM (Shingrix) 2018-10-16 00:00:00 Completed Nohelia Seybold - External Shingles IM (Shingrix) 2018-10-16 00:00:00 Completed Nohelia Seybold - External Shingles IM (Shingrix) 2018-10-16 00:00:00 Completed Nohelia Seybold Shingles IM (Shingrix) 2018-03-18 00:00:00 Completed Nohelia Seybold Shingles IM (Shingrix) 2018-03-18 00:00:00 Completed Nohelia Seybold Shingles IM (Shingrix) 2018-03-18 00:00:00 Completed Nohelia Seybold - External Shingles IM (Shingrix) 2018-03-18 00:00:00 Completed Nohelia Seybold - External Shingles IM (Shingrix) 2018-03-18 00:00:00 Completed Nohelia Seybold - External Shingles IM (Shingrix) 2018-03-18 00:00:00 Completed Nohelia Seybold Shingles IM (Shingrix) 2018-03-18 00:00:00 Completed Nohelia Seybold - External Shingles IM (Shingrix) 2018-03-18 00:00:00 Completed Nohelia Seybold - External Shingles IM (Shingrix) 2018-03-18 00:00:00 Completed Nohelia Seybold - External Shingles IM (Shingrix) 2018-03-18 00:00:00 Completed Nohelia Seybold - External Shingles IM (Shingrix) 2018-03-18 00:00:00 Completed Nohelia Seybold - External Shingles IM (Shingrix) 2018-03-18 00:00:00 Completed Nohelia Seybold - External Shingles IM (Shingrix) 2018-03-18 00:00:00 Completed Nohelia Seybold - External Shingles IM (Shingrix) 2018-03-18 00:00:00 Completed Nohelia Seybold Influenza Virus Vaccine, No Preserv, age 6 months and up 2018-02-11 00:00:00 Completed Nohelia Seybold Shingles IM (Shingrix) 2018-02-11 00:00:00 Completed Nohelia Seybold Influenza Virus Vaccine, No Preserv, age 6 months and up 2018-02-11 00:00:00 Completed Nohelia Seybold Shingles IM (Shingrix) 2018-02-11 00:00:00 Completed Nohelia Seybold Influenza Virus Vaccine, No Preserv, age 6 months and up 2018-02-11 00:00:00 Completed Nohelia Seybold - External Shingles IM (Shingrix) 2018-02-11 00:00:00 Completed Nohelia Seybold - External Influenza Virus Vaccine, No Preserv, age 6 months and up 2018-02-11 00:00:00 Completed Nohelia Seybold - External Shingles IM (Shingrix) 2018-02-11 00:00:00 Completed Nohelia Seybold - External Influenza Virus Vaccine, No Preserv, age 6 months and up 2018-02-11 00:00:00 Completed Nohelia Seybold - External Shingles IM (Shingrix) 2018-02-11 00:00:00 Completed Nohelia Seybold - External Influenza Virus Vaccine, No Preserv, age 6 months and up 2018-02-11 00:00:00 Completed Nohelia Seybold - External Shingles IM (Shingrix) 2018-02-11 00:00:00 Completed Nohelia Seybold - External Influenza Virus Vaccine, No Preserv, age 6 months and up 2018-02-11 00:00:00 Completed Nohelia Seybold - External Shingles IM (Shingrix) 2018-02-11 00:00:00 Completed Nohelia Seybold - External Influenza Virus Vaccine, No Preserv, age 6 months and up 2018-02-11 00:00:00 Completed Nohelia Seybold - External Shingles IM (Shingrix) 2018-02-11 00:00:00 Completed Nohelia Seybold - External Influenza Virus Vaccine, No Preserv, age 6 months and up 2018-02-11 00:00:00 Completed Nohelia Seybold - External Shingles IM (Shingrix) 2018-02-11 00:00:00 Completed Nohelia Seybold - External Influenza Virus Vaccine, No Preserv, age 6 months and up 2018-02-11 00:00:00 Completed Nohelia Seybold - External Shingles IM (Shingrix) 2018-02-11 00:00:00 Completed Nohelia Seybold - External Influenza Virus Vaccine, No Preserv, age 6 months and up 2018-02-11 00:00:00 Completed Nohelia Seybold - External Shingles IM (Shingrix) 2018-02-11 00:00:00 Completed Nohelia Seybold - External Influenza Virus Vaccine, No Preserv, age 6 months and up 2018-02-11 00:00:00 Completed Nohelia Seybold - External Shingles IM (Shingrix) 2018-02-11 00:00:00 Completed Nohelia Seybold - External Influenza Virus Vaccine, No Preserv, age 6 months and up 2018-02-11 00:00:00 Completed Nohelia Seybold Shingles IM (Shingrix) 2018-02-11 00:00:00 Completed Nohelia Hyde Fluzone Quadrivalent 0.5 ML Intramuscular Suspension Prefilled Syringe 2018-02-11 00:00:00 Completed [facility] Shingrix 50 MCG Intramuscular Suspension Reconstituted 2018-02-11 00:00:00 Completed [facility] Prevnar 13 Intramuscular Suspension 2018-01-29 09:53:00 Completed [facility] Pneumococcal Vaccine, Conjugate 13 2018-01-29 00:00:00 Completed Nohelia Hyde Pneumococcal Vaccine, Conjugate 13 2018-01-29 00:00:00 Completed Nohelia Seybold Pneumococcal Vaccine, Conjugate 13 2018-01-29 00:00:00 Completed Nohelia Seybold - External Pneumococcal Vaccine, Conjugate 13 2018-01-29 00:00:00 Completed Nohelia Seybold - External Pneumococcal Vaccine, Conjugate 13 2018-01-29 00:00:00 Completed Nohelia Seybold - External Pneumococcal Vaccine, Conjugate 13 2018-01-29 00:00:00 Completed Nohelia Seybold - External Pneumococcal Vaccine, Conjugate 13 2018-01-29 00:00:00 Completed Nohelia Seybold - External Pneumococcal Vaccine, Conjugate 13 2018-01-29 00:00:00 Completed Nohelia Seybold - External Pneumococcal Vaccine, Conjugate 13 2018-01-29 00:00:00 Completed Nohelia Seybold - External Pneumococcal Vaccine, Conjugate 13 2018-01-29 00:00:00 Completed Nohelia Seybold - External Pneumococcal Vaccine, Conjugate 13 2018-01-29 00:00:00 Completed Nohelia Seybold - External Pneumococcal Vaccine, Conjugate 13 2018-01-29 00:00:00 Completed Nohelia Seybold - External Pneumococcal Vaccine, Conjugate 13 2018-01-29 00:00:00 Completed Nohelia Seybold Influenza Virus Vaccine, High Dose, Age 65 And Up 2017-05-03 00:00:00 Completed Nohelia Seybold Influenza Virus Vaccine, High Dose, Age 65 And Up 2017-05-03 00:00:00 Completed Nohelia Seybold Influenza Virus Vaccine, High Dose, Age 65 And Up 2017-05-03 00:00:00 Completed Nohelia Seybold - External Influenza Virus Vaccine, High Dose, Age 65 And Up 2017-05-03 00:00:00 Completed Nohelia Seybold - External Influenza Virus Vaccine, High Dose, Age 65 And Up 2017-05-03 00:00:00 Completed Nohelia Seybold - External Influenza Virus Vaccine, High Dose, Age 65 And Up 2017-05-03 00:00:00 Completed Nohelia Seybold - External Influenza Virus Vaccine, High Dose, Age 65 And Up 2017-05-03 00:00:00 Completed Nohelia Seybold - External Influenza Virus Vaccine, High Dose, Age 65 And Up 2017-05-03 00:00:00 Completed Nohelia Seybold - External Influenza Virus Vaccine, High Dose, Age 65 And Up 2017-05-03 00:00:00 Completed Nohelia Seybold - External Influenza Virus Vaccine, High Dose, Age 65 And Up 2017-05-03 00:00:00 Completed Nohelia Seybold - External Influenza Virus Vaccine, High Dose, Age 65 And Up 2017-05-03 00:00:00 Completed Nohelia Seybold - External Influenza Virus Vaccine, High Dose, Age 65 And Up 2017-05-03 00:00:00 Completed Nohelia Powellold - External Influenza Virus Vaccine, High Dose, Age 65 And Up 2017-05-03 00:00:00 Completed Nohelia Hyde Influenza 2017-05-03 00:00:00 Completed [facility] Prevnar 13 Intramuscular Suspension 2016-12-26 11:56:00 Completed [facility] Pneumococcal Vaccine, Conjugate 13 2016-12-26 00:00:00 Completed Nohelia Hyde Pneumococcal Vaccine, Conjugate 13 2016-12-26 00:00:00 Completed Nohelia Powellold Pneumococcal Vaccine, Conjugate 13 2016-12-26 00:00:00 Completed Noehlia Hyde - External Pneumococcal Vaccine, Conjugate 13 2016-12-26 00:00:00 Completed Nohelia Hyde - External Pneumococcal Vaccine, Conjugate 13 2016-12-26 00:00:00 Completed Nohelia Ringybold - External Pneumococcal Vaccine, Conjugate 13 2016-12-26 00:00:00 Completed Nohelia Hyde - External Pneumococcal Vaccine, Conjugate 13 2016-12-26 00:00:00 Completed Nohelia Seybold - External Pneumococcal Vaccine, Conjugate 13 2016-12-26 00:00:00 Completed Nohelia Seybold - External Pneumococcal Vaccine, Conjugate 13 2016-12-26 00:00:00 Completed Nohelia Hyde - External Pneumococcal Vaccine, Conjugate 13 2016-12-26 00:00:00 Completed Nohelia Seybold - External Pneumococcal Vaccine, Conjugate 13 2016-12-26 00:00:00 Completed Nohelia Ringybanabella - External Pneumococcal Vaccine, Conjugate 13 2016-12-26 00:00:00 Completed Nohelia Hyde - External Pneumococcal Vaccine, Conjugate 13 2016-12-26 00:00:00 Completed Nohelia Hyde Tdap- (Boostrix, Adacel) 2016-02-15 00:00:00 Completed Nohelia Hyde Shingles SQ (Zostavax) 2016-02-15 00:00:00 Completed Nohelia Seybold Influenza Virus Vaccine, age 6 months and up 2016-02-15 00:00:00 Completed Nohelia Seybold Tdap- (Boostrix, Adacel) 2016-02-15 00:00:00 Completed Nohelia Seybold Shingles SQ (Zostavax) 2016-02-15 00:00:00 Completed Nohelia Seybold Influenza Virus Vaccine, age 6 months and up 2016-02-15 00:00:00 Completed Nohelia Seybold Tdap- (Boostrix, Adacel) 2016-02-15 00:00:00 Completed Nohelia Seybold - External Shingles SQ (Zostavax) 2016-02-15 00:00:00 Completed Nohelia Seybold - External Influenza Virus Vaccine, age 6 months and up 2016-02-15 00:00:00 Completed Nohelia Seybold - External Tdap- (Boostrix, Adacel) 2016-02-15 00:00:00 Completed Nohelia Seybold - External Shingles SQ (Zostavax) 2016-02-15 00:00:00 Completed Nohelia Seybold - External Influenza Virus Vaccine, age 6 months and up 2016-02-15 00:00:00 Completed Nohelia Seybold - External Tdap- (Boostrix, Adacel) 2016-02-15 00:00:00 Completed Nohelia Seybold Tdap- (Boostrix, Adacel) 2016-02-15 00:00:00 Completed Nohelia Seybold - External Shingles SQ (Zostavax) 2016-02-15 00:00:00 Completed Nohelia Seybold - External Influenza Virus Vaccine, age 6 months and up 2016-02-15 00:00:00 Completed Nohelia Seybold - External Shingles SQ (Zostavax) 2016-02-15 00:00:00 Completed Nohelia Seybold Influenza Virus Vaccine, age 6 months and up 2016-02-15 00:00:00 Completed Nohelia Seybold Tdap- (Boostrix, Adacel) 2016-02-15 00:00:00 Completed Nohelia Seybold - External Shingles SQ (Zostavax) 2016-02-15 00:00:00 Completed Nohelia Seybold - External Influenza Virus Vaccine, age 6 months and up 2016-02-15 00:00:00 Completed Nohelia Seybold - External Tdap- (Boostrix, Adacel) 2016-02-15 00:00:00 Completed Nohelia Seybold - External Shingles SQ (Zostavax) 2016-02-15 00:00:00 Completed Nohelia Seybold - External Influenza Virus Vaccine, age 6 months and up 2016-02-15 00:00:00 Completed Nohelia Seybold - External Tdap- (Boostrix, Adacel) 2016-02-15 00:00:00 Completed Nohelia Seybold - External Shingles SQ (Zostavax) 2016-02-15 00:00:00 Completed Nohelia Seybold - External Influenza Virus Vaccine, age 6 months and up 2016-02-15 00:00:00 Completed Nohelia Seybold - External Tdap- (Boostrix, Adacel) 2016-02-15 00:00:00 Completed Nohelia Seybold - External Shingles SQ (Zostavax) 2016-02-15 00:00:00 Completed Nohelia Seybold - External Influenza Virus Vaccine, age 6 months and up 2016-02-15 00:00:00 Completed Nohelia Seybold - External Tdap- (Boostrix, Adacel) 2016-02-15 00:00:00 Completed Nohelia Seybold - External Shingles SQ (Zostavax) 2016-02-15 00:00:00 Completed Nohelia Seybold - External Influenza Virus Vaccine, age 6 months and up 2016-02-15 00:00:00 Completed Nohelia Seybold - External Tdap- (Boostrix, Adacel) 2016-02-15 00:00:00 Completed Nohelia Seybold - External Shingles SQ (Zostavax) 2016-02-15 00:00:00 Completed Nohelia Seybold - External Influenza Virus Vaccine, age 6 months and up 2016-02-15 00:00:00 Completed Nohelia Seybold - External Tdap- (Boostrix, Adacel) 2016-02-15 00:00:00 Completed Nohelia Seybold - External Shingles SQ (Zostavax) 2016-02-15 00:00:00 Completed Nohelia Seybold - External Influenza Virus Vaccine, age 6 months and up 2016-02-15 00:00:00 Completed Nohelia Hyde - External Tdap- (Boostrix, Adacel) 2016-02-15 00:00:00 Completed Nohelia Hyde Shingles SQ (Zostavax) 2016-02-15 00:00:00 Completed Nohelia Hyde Influenza Virus Vaccine, age 6 months and up 2016-02-15 00:00:00 Completed Nohelia Hyde Td- Tetanus & Diphtheria Vaccine (age 7+ years) 2004-03-21 00:00:00 Completed Nohelia Ringybold Td- Tetanus & Diphtheria Vaccine (age 7+ years) 2004-03-21 00:00:00 Completed Nohelia Ringybanabella Td- Tetanus & Diphtheria Vaccine (age 7+ years) 2004-03-21 00:00:00 Completed Nohelia Seybold - External Td- Tetanus & Diphtheria Vaccine (age 7+ years) 2004-03-21 00:00:00 Completed Nohelia Ringybold - External Td- Tetanus & Diphtheria Vaccine (age 7+ years) 2004-03-21 00:00:00 Completed Nohelia Ringybold Td- Tetanus & Diphtheria Vaccine (age 7+ years) 2004-03-21 00:00:00 Completed Nohelia Seybold - External Td- Tetanus & Diphtheria Vaccine (age 7+ years) 2004-03-21 00:00:00 Completed Nohelia Seybold - External Td- Tetanus & Diphtheria Vaccine (age 7+ years) 2004-03-21 00:00:00 Completed Nohelia Ringybold - External Td- Tetanus & Diphtheria Vaccine (age 7+ years) 2004-03-21 00:00:00 Completed Nohelia Seybold - External Td- Tetanus & Diphtheria Vaccine (age 7+ years) 2004-03-21 00:00:00 Completed Nohelia Seybold - External Td- Tetanus & Diphtheria Vaccine (age 7+ years) 2004-03-21 00:00:00 Completed Nohelia Seybold - External Td- Tetanus & Diphtheria Vaccine (age 7+ years) 2004-03-21 00:00:00 Completed Nohelia Seybold - External Td- Tetanus & Diphtheria Vaccine (age 7+ years) 2004-03-21 00:00:00 Completed Nohelia Seybold - External Td- Tetanus & Diphtheria Vaccine (age 7+ years) 2004-03-21 00:00:00 Completed Nohelia Seybold Influenza Virus Vaccine, age 6 months and up 2001-03-21 00:00:00 Completed Nohelia Seybold Influenza Virus Vaccine, age 6 months and up 2001-03-21 00:00:00 Completed Nohelia Seybold Influenza Virus Vaccine, age 6 months and up 2001-03-21 00:00:00 Completed Nohelia Seybold - External Influenza Virus Vaccine, age 6 months and up 2001-03-21 00:00:00 Completed Nohelia Seybold - External Influenza Virus Vaccine, age 6 months and up 2001-03-21 00:00:00 Completed Nohelia Seybold Influenza Virus Vaccine, age 6 months and up 2001-03-21 00:00:00 Completed Nohelia Seybold - External Influenza Virus Vaccine, age 6 months and up 2001-03-21 00:00:00 Completed Nohelia Seybold - External Influenza Virus Vaccine, age 6 months and up 2001-03-21 00:00:00 Completed Nohelia Seybold - External Influenza Virus Vaccine, age 6 months and up 2001-03-21 00:00:00 Completed Nohelia Seybold - External Influenza Virus Vaccine, age 6 months and up 2001-03-21 00:00:00 Completed Nohelia Seybold - External Influenza Virus Vaccine, age 6 months and up 2001-03-21 00:00:00 Completed Nohelia Seybold - External Influenza Virus Vaccine, age 6 months and up 2001-03-21 00:00:00 Completed Nohelia Seybold - External Influenza Virus Vaccine, age 6 months and up 2001-03-21 00:00:00 Completed Nohelia Seybold - External Influenza Virus Vaccine, age 6 months and up 2001-03-21 00:00:00 Completed Nohelia ybold Td- Tetanus & Diphtheria Vaccine (age 7+ years) Unknown Completed Nohelia Powellol d - External Influenza Virus Vaccine, age 6 months and up Unknown [facility] Ad[facility]el[facility]) [facility] ([facility] ([email or web address]), Mrna-lnp, Jl Protein, Pf, 30mcg/0.3ml,IM Unknown Completed Nohelia Ringol d - External Influenza Virus Vaccine, Quadrivalent, High Dose, Age 65 And Up Unknown Completed Nohelia Acosta eybold - External Influenza Virus Vaccine, No Preserv, age 6 months and up Unknown Completed Nohelia eybold - External Influenza Virus Vaccine, High Dose, Age 65 And Up Unknown Completed Nohelia old - External Pneumococcal Vaccine, Conjugate 13 Unknown Completed Nohelia old - External Pneumococcal Vaccine, Polysaccharide Unknown Completed Nohelia ybol d - External COVID-19 VACCINE PFIZER 12+ (Renteria cap) Unknown [facility] PFIZER 12+ Unknown Completed Nohelia ybold - External Influenza vaccine, quadrivalent, adjuvanted, 65+ Unknown Completed Nohelia Seo ld - External Influenza Virus Vaccine, Unspecified Formulation Unknown [facility]- Tetanus & Diphtheria Vaccine (age 7+ years) Unknown Completed [facility] - External Influenza Virus Vaccine, age 6 months and up Unknown Completed Nohelia [facility] - External Tdap- (Boostrix, Adacel) Unknown Completed Nohelia Seybold - External Shingles SQ (Zostavax) Unknown Completed Nohelia old - External Shingles IM (Shingrix) [facility] Covid-19 Vaccine ([email or web address]), Mrna-lnp, Jl Protein, Pf, 30mcg/0.3ml,IM Unknown Completed [facility] d - External Influenza Virus Vaccine, Quadrivalent, High Dose, Age 65 And Up Unknown Completed Nohelia Dave eybold - External Influenza Virus Vaccine, No Preserv, age 6 months and up Unknown Completed Nohelia S eybold - External Influenza Virus Vaccine, High Dose, Age 65 And Up Unknown Completed Nohelia old - External Pneumococcal Vaccine, Conjugate 13 Unknown Completed Nohelia ybold - External Pneumococcal Vaccine, Polysaccharide Unknown Completed Nohelia ybol d - External COVID-19 VACCINE PFIZER 12+ (Renteria cap) Unknown Completed Nohelia ybold - External COVID-19 Bivalent vaccine PFIZER 12+ Unknown Completed Nohelia ybold - External Influenza vaccine, quadrivalent, adjuvanted, 65+ Unknown Completed Nohelia o ld - External Influenza Virus Vaccine, Unspecified Formulation Unknown Completed Nohelia Seybold - External Td- Tetanus & Diphtheria Vaccine (age 7+ years) Unknown Completed Nohelia Seybol d - External Influenza Virus Vaccine, age 6 months and up Unknown Completed Nohelia Seybold - External Tdap- (Boostrix, Adacel) Unknown Completed Nohelia Seybold - External Shingles SQ (Zostavax) Unknown Completed Nohelia Seybold - External Shingles IM (Shingrix) Unknown Completed Nohelia Seybold - External Covid-19 Vaccine ([email or web address]), Mrna-lnp, Jl Protein, Pf, 30mcg/0.3ml,IM Unknown Completed Nohelia Ringybol d - External Influenza Virus Vaccine, Quadrivalent, High Dose, Age 65 And Up Unknown Completed Nohelia S eybold - External Influenza Virus Vaccine, No Preserv, age 6 months and up Unknown Completed Nohelia S eybold - External Influenza Virus Vaccine, High Dose, Age 65 And Up Unknown Completed Nohelia Ringybold - External Pneumococcal Vaccine, Conjugate 13 Unknown Completed Nohelia Seybold - External Pneumococcal Vaccine, Polysaccharide Unknown Completed Nohelia ybol d - External COVID-19 VACCINE PFIZER 12+ (Renteria cap) Unknown Completed Nohelia Seybold - External COVID-19 Bivalent vaccine PFIZER 12+ Unknown Completed Nohelia Se ybold - External Influenza vaccine, quadrivalent, adjuvanted, 65+ Unknown Completed Nohelia Powello ld - External Influenza Virus Vaccine, Unspecified Formulation Unknown Completed Nohelia Seybold - External Td- Tetanus & Diphtheria Vaccine (age 7+ years) Unknown Completed Nohelia Ringybol d - External Influenza Virus Vaccine, age 6 months and up Unknown Completed Nohelia Seybold - External Tdap- (Boostrix, Adacel) Unknown Completed Nohelia Ringybold - External Shingles SQ (Zostavax) Unknown Completed Nohelia Ringybold - External Shingles IM (Shingrix) Unknown Completed Nohelia Seybold - External Covid-19 Vaccine ([email or web address]), Mrna-lnp, Jl Protein, Pf, 30mcg/0.3ml,IM Unknown Completed Nohelia Seybol d - External Influenza Virus Vaccine, Quadrivalent, High Dose, Age 65 And Up Unknown Completed Nohelia S eybold - External Influenza Virus Vaccine, No Preserv, age 6 months and up Unknown Completed Nohelia S eybold - External Influenza Virus Vaccine, High Dose, Age 65 And Up Unknown Completed Nohelia Seybold - External Pneumococcal Vaccine, Conjugate 13 Unknown Completed Nohelia Seybold - External Pneumococcal Vaccine, Polysaccharide Unknown Completed Nohelia Seybol d - External COVID-19 VACCINE PFIZER 12+ (Renteria cap) Unknown Completed Nohelia Seybold - External COVID-19 Bivalent vaccine PFIZER 12+ Unknown Completed Nohelia Se ybold - External Influenza vaccine, quadrivalent, adjuvanted, 65+ Unknown Completed Nohelia Ringo ld - External Influenza Virus Vaccine, Unspecified Formulation Unknown Completed Nohelia Seybold - External Td- Tetanus & Diphtheria Vaccine (age 7+ years) Unknown Completed Nohelia Seybol d - External Influenza Virus Vaccine, age 6 months and up Unknown Completed Nohelia Seybold - External Tdap- (Boostrix, Adacel) Unknown Completed Nohelia Ringybold - External Shingles SQ (Zostavax) Unknown Completed Nohelia Ringybold - External Shingles IM (Shingrix) [facility] ([email or web address]), Mrna-lnp, Jl Protein, Pf, 30mcg/0.3ml,IM Unknown Completed Nohelia Ringol d - External Influenza Virus Vaccine, Quadrivalent, High Dose, Age 65 And Up Unknown Completed Nohelia Acosta eybold - External Influenza Virus Vaccine, No Preserv, age 6 months and up Unknown Completed Nohelia S eybold - External Influenza Virus Vaccine, High Dose, Age 65 And Up Unknown Completed Nohelia Seybold - External Pneumococcal Vaccine, Conjugate 13 Unknown Completed Nohelia Seybold - External Pneumococcal Vaccine, Polysaccharide Unknown Completed Nohelia Seybol d - External COVID-19 VACCINE PFIZER 12+ (Renteria cap) Unknown Completed Nohelia Seybold - External COVID-19 Bivalent vaccine PFIZER 12+ Unknown Completed Nohelia Se ybold - External Influenza vaccine, quadrivalent, adjuvanted, 65+ Unknown Completed Nohelia Ringo ld - External Influenza Virus Vaccine, Unspecified Formulation Unknown Completed Nohelia Seybold - External Td- Tetanus & Diphtheria Vaccine (age 7+ years) Unknown Completed Nohelia Seybol d - External Influenza Virus Vaccine, age 6 months and up Unknown Completed Nohelia Seybold - External Tdap- (Boostrix, Adacel) Unknown Completed Nohelia Seybold - External Shingles SQ (Zostavax) Unknown Completed Nohelia Seybold - External Shingles IM (Shingrix) Unknown Completed Nohelia Seybold - External Covid-19 Vaccine ([email or web address]), Mrna-lnp, Jl Protein, Pf, 30mcg/0.3ml,IM Unknown Completed Nohelia Ringybol d - External Influenza Virus Vaccine, Quadrivalent, High Dose, Age 65 And Up Unknown Completed Nohelia S eybold - External Influenza Virus Vaccine, No Preserv, age 6 months and up Unknown Completed Nohelia S eybold - External Influenza Virus Vaccine, High Dose, Age 65 And Up Unknown Completed Nohelia Seybold - External Pneumococcal Vaccine, Conjugate 13 Unknown Completed Nohelia Seybold - External Pneumococcal Vaccine, Polysaccharide Unknown Completed Nohelia Seybol d - External COVID-19 VACCINE PFIZER 12+ (Renteria cap) Unknown Completed Nohelia Ringybold - External COVID-19 Bivalent vaccine PFIZER 12+ Unknown Completed Nohelia Se ybold - External Influenza vaccine, quadrivalent, adjuvanted, 65+ Unknown Completed Nohelia Powello ld - External Influenza Virus Vaccine, Unspecified Formulation Unknown Completed Nohelia Seybanabella - External Td- Tetanus & Diphtheria Vaccine (age 7+ years) Unknown Completed Nohelia Seybol d - External Tdap- (Boostrix, Adacel) Unknown Completed Nohelia Ringybold - External Shingles SQ (Zostavax) Unknown Completed Nohelia Ringybold - External Influenza Virus Vaccine, age 6 months and up Unknown Completed Nohelia Ringybold - External Shingles IM (Shingrix) Unknown Completed Nohelia Seybold - External Covid-19 Vaccine ([email or web address]), Mrna-lnp, Jl Protein, Pf, 30mcg/0.3ml,IM Unknown Completed Nohelia Seybol d - External Influenza Virus Vaccine, Quadrivalent, High Dose, Age 65 And Up Unknown Completed Nohelia S eybold - External Influenza Virus Vaccine, No Preserv, age 6 months and up Unknown Completed Nohelia S eybold - External Influenza Virus Vaccine, High Dose, Age 65 And Up Unknown Completed Nohelia Seybold - External Pneumococcal Vaccine, Conjugate 13 Unknown Completed Nohelia Seybold - External Pneumococcal Vaccine, Polysaccharide Unknown Completed Nohelia Seybol d - External COVID-19 VACCINE PFIZER 12+ (Renteria cap) Unknown Completed Nohelia Seybold - External COVID-19 Bivalent vaccine PFIZER 12+ Unknown Completed Nohelia Se ybold - External Influenza vaccine, quadrivalent, adjuvanted, 65+ Unknown Completed Nohelia Ringo ld - External Td- Tetanus & Diphtheria Vaccine (age 7+ years) Unknown Completed Nohelia Ringybol d - External Tdap- (Boostrix, Adacel) Unknown Completed Nohelia Ringybold - External Shingles SQ (Zostavax) Unknown Completed Nohelia Seybold - External Influenza Virus Vaccine, age 6 months and up Unknown Completed Nohelia Seybold - External Shingles IM (Shingrix) Unknown Completed Nohelia Seybold - External Covid-19 Vaccine ([email or web address]), Mrna-lnp, Jl Protein, Pf, 30mcg/0.3ml,IM Unknown Completed Nohelia Seybol d - External Influenza Virus Vaccine, Quadrivalent, High Dose, Age 65 And Up Unknown Completed [facility] eybold - External Influenza Virus Vaccine, No Preserv, age 6 months and up Unknown Completed [facility] eybold - External Influenza Virus Vaccine, High Dose, Age 65 And Up Unknown Completed Nohelia Seybold - External Pneumococcal Vaccine, Conjugate 13 Unknown [facility], Polysaccharide [facility] COVID-19 VACCINE PFIZER 12+ (Renteria cap) Unknown Completed Nohelia Seybold - External COVID-19 Bivalent vaccine PFIZER 12+ Unknown Completed Nohelia Ring ybold - External Influenza vaccine, quadrivalent, adjuvanted, 65+ Unknown Completed Nohelia Ringo ld - External Td- Tetanus & Diphtheria Vaccine (age 7+ years) Unknown Completed Nohelia ol d - External Tdap- (Boostrix, Adacel) Unknown Completed Nohelia Ringybold - External Shingles SQ (Zostavax) Unknown Completed Nohelia Ringybold - External Influenza Virus Vaccine, age 6 months and up Unknown Completed Nohelia ybold - External Shingles IM (Shingrix) Unknown Completed Nohelia ybold - External Covid-19 Vaccine ([email or web address]), Mrna-lnp, Jl Protein, Pf, 30mcg/0.3ml,IM Unknown Completed Nohelia ybol d - External Influenza Virus Vaccine, Quadrivalent, High Dose, Age 65 And Up Unknown Completed Nohelia S eybold - External Influenza Virus Vaccine, No Preserv, age 6 months and up Unknown Completed Nohelia S eybold - External Influenza Virus Vaccine, High Dose, Age 65 And Up Unknown Completed Nohelia Seybold - External Pneumococcal Vaccine, Conjugate 13 Unknown Completed Nohelia Seybold - External Pneumococcal Vaccine, Polysaccharide Unknown Completed Nohelia Seybol d - External COVID-19 VACCINE PFIZER 12+ (Renteria cap) Unknown Completed Nohelia Seybold - External COVID-19 Bivalent vaccine PFIZER 12+ Unknown Completed Nohelia Se ybold - External Influenza vaccine, quadrivalent, adjuvanted, 65+ Unknown Completed Nohelia Ringybo ld - External Td- Tetanus & Diphtheria Vaccine (age 7+ years) Unknown Completed Nohelia Seybol d - External Tdap- (Boostrix, Adacel) Unknown Completed Nohelia Seybold - External Shingles SQ (Zostavax) Unknown Completed Nohelia Seybold - External Influenza Virus Vaccine, age 6 months and up Unknown Completed Nohelia Ringybold - External Shingles IM (Shingrix) Unknown Completed Nohelia Seybold - External Covid-19 Vaccine ([email or web address]), Mrna-lnp, Jl Protein, Pf, 30mcg/0.3ml,IM Unknown Completed Nohelia Ringybol d - External Influenza Virus Vaccine, Quadrivalent, High Dose, Age 65 And Up Unknown Completed Nohelia Acosta eybold - External Influenza Virus Vaccine, No Preserv, age 6 months and up Unknown Completed Nohelia S eybold - External Influenza Virus Vaccine, High Dose, Age 65 And Up Unknown Completed Nohelia Ringybold - External Pneumococcal Vaccine, Conjugate 13 Unknown Completed Nohelia Seybold - External Pneumococcal Vaccine, Polysaccharide Unknown Completed Nohelia Seybol d - External COVID-19 VACCINE PFIZER + (Renteria cap) Unknown Completed Nohelia Seybold - External COVID-19 Bivalent vaccine PFIZER + Unknown Completed Nohelia Se ybold - External Influenza vaccine, quadrivalent, adjuvanted, 65+ Unknown Completed Nohelia Ringybo ld - External Influenza Virus Vaccine, Unspecified Formulation Unknown Completed Nohelia Seybold - External Td- Tetanus & Diphtheria Vaccine (age 7+ years) Unknown Completed Nohelia Seybol d - External Influenza Virus Vaccine, age 6 months and up Unknown Completed Nohelia Seybold - External Tdap- (Boostrix, Adacel) Unknown Completed Nohelia Seybold - External Shingles SQ (Zostavax) Unknown Completed Nohelia Seybold - External Shingles IM (Shingrix) Unknown Completed Nohelia Ringybold - External Covid-19 Vaccine ([email or web address]), Mrna-lnp, Jl Protein, Pf, 30mcg/0.3ml,IM Unknown Completed Nohelia Ringybol d - External Influenza Virus Vaccine, Quadrivalent, High Dose, Age 65 And Up Unknown Completed Nohelia Acosta eybold - External Influenza Virus Vaccine, No Preserv, age 6 months and up Unknown Completed Nohelia S eybold - External Influenza Virus Vaccine, High Dose, Age 65 And Up Unknown Completed Nohelia Seybold - External Pneumococcal Vaccine, Conjugate 13 Unknown Completed Nohelia Seybold - External Pneumococcal Vaccine, Polysaccharide Unknown Completed Nohelia Seybol d - External COVID-19 VACCINE PFIZER 12+ (Renteria cap) Unknown Completed Nohelia Seybold - External COVID-19 Bivalent vaccine PFIZER 12+ Unknown Completed Nohelia ybold - External Influenza vaccine, quadrivalent, adjuvanted, 65+ Unknown Completed Nohelia Powello ld - External Influenza Virus Vaccine, Unspecified Formulation Unknown [facility] T[facility]- Tetanus & Diphtheria Vaccine (age 7+ years) Unknown [facility] Influenza Virus Vaccine, age 6 months and up Unknown Completed Nohelia old - External Tdap- (Boostrix, Adacel) Unknown Completed Nohelia Ringybold - External Shingles SQ (Zostavax) Unknown Completed Nohelia Seybold - External Shingles IM (Shingrix) Unknown Completed Nohelia ybold - External Covid-19 Vaccine ([email or web address]), Mrna-lnp, Jl Protein, Pf, 30mcg/0.3ml,IM Unknown Completed Nohelia Seybol d - External Influenza Virus Vaccine, Quadrivalent, High Dose, Age 65 And Up Unknown Completed Nohelia Dave eybold - External Influenza Virus Vaccine, No Preserv, age 6 months and up Unknown Completed Nohelia S eybold - External Influenza Virus Vaccine, High Dose, Age 65 And Up Unknown Completed Nohelia Seybold - External Pneumococcal Vaccine, Conjugate 13 Unknown Completed Nohelia Seybold - External Pneumococcal Vaccine, Polysaccharide Unknown Completed Nohelia Seybol d - External COVID-19 VACCINE PFIZER 12+ (Renteria cap) Unknown Completed Nohelia Seybold - External COVID-19 Bivalent vaccine PFIZER 12+ Unknown Completed Nohelia Se ybold - External Influenza vaccine, quadrivalent, adjuvanted, 65+ Unknown Completed [facility] - External Influenza Virus Vaccine, Unspecified Formulation Unknown Completed Noheliaanthony Hyde External Td- Tetanus & Diphtheria Vaccine (age 7+ years) Unknown Completed [facility] d - External Influenza Virus Vaccine, age 6 months and up Unknown Completed [facility] External Tdap- (Boostrix, Adacel) Unknown Completed Noheliaanthony Hyde - External Shingles SQ (Zostavax) Unknown Completed Nohelia [facility] - External Shingles IM (Shingrix) Unknown Completed [facility] - External Covid-19 Vaccine ([email or web address]), Mrna-lnp, Jl Protein, Pf, 30mcg/0.3ml,IM Unknown Completed Nohelia [facility] d - External Influenza Virus Vaccine, Quadrivalent, High Dose, Age 65 And Up Unknown [facility] Vaccine, No Preserv, age 6 months and up Unknown Completed [facility] eybold - External Influenza Virus Vaccine, High Dose, Age 65 And Up Unknown Completed [facility] - External Pneumococcal Vaccine, Conjugate 13 Unknown Completed [facility] - External Pneumococcal Vaccine, Polysaccharide Unknown Completed [facility] d - External COVID-19 VACCINE PFIZER 12+ (Renteria cap) Unknown Completed [facility] - External COVID-19 Bivalent vaccine PFIZER 12+ Unknown Completed [facility] - External Influenza vaccine, quadrivalent, adjuvanted, 65+ Unknown Completed [facility] - External Influenza Virus Vaccine, Unspecified Formulation Unknown Completed [facility] - External Tdap Unknown Completed [facility] (PCV20) Prevnar 20 (PCV20) Unknown Completed [facility] Boostrix (Tdap) Boostrix (Tdap) Unknown Completed [facility] Vital Signs Vital Name Observation Time Observation Value Comments S ource height 2024-12-01 08:30:00 68 [in_i] [facility] weight 2024-12-01 08:30:00 198.2 [lb_av] [facility] temperature 2024-12-01 08:30:00 97.7 [degF] [facility] bmi 2024-12-01 08:30:00 30.13 kg/m2 [facility] oximetry 2024-12-01 08:30:00 99 % [facility] respiratory rate 2024-12-01 08:30:00 16 /min [facility] blood pressure systolic 2024-12-01 08:30:00 136 mm[Hg] [facility] blood pressure diastolic 2024-12-01 08:30:00 84 mm[Hg] [facility] height 2024-12-01 08:30:00 68 [in_i] [facility] weight 2024-12-01 08:30:00 198.2 [lb_av] [facility] temperature 2024-12-01 08:30:00 97.7 [degF] [facility] bmi 2024-12-01 08:30:00 30.13 kg/m2 [facility] oximetry 2024-12-01 08:30:00 99 % [facility] respiratory rate 2024-12-01 08:30:00 16 /min [facility] blood pressure systolic 2024-12-01 08:30:00 136 mm[Hg] [facility] blood pressure diastolic 2024-12-01 08:30:00 84 mm[Hg] [facility] height 2024-08-22 13:15:00 68 [in_i] [facility] weight 2024-08-22 13:15:00 197 [lb_av] [facility] temperature 2024-08-22 13:15:00 98 [degF] [facility] bmi 2024-08-22 13:15:00 29.95 kg/m2 [facility] oximetry 2024-08-22 13:15:00 98 % [facility] respiratory rate 2024-08-22 13:15:00 16 /min [facility] blood pressure systolic 2024-08-22 13:15:00 121 mm[Hg] [facility] blood pressure diastolic 2024-08-22 13:15:00 73 mm[Hg] [facility] Systolic blood pressure 2024-07-07 17:49:00 140 mm[Hg] Nohelia Seybold - External Diastolic blood pressure 2024-07-07 17:49:00 80 mm[Hg] Nohelia Seybold - External Heart rate 2024-07-07 17:17:00 59 /min Nohelia Seybold - External Body temperature 2024-07-07 17:17:00 36.06 Digna Nohelia Seybold - External Respiratory rate 2024-07-07 17:17:00 16 /min Nohelia Seybold - External Body height 2024-07-07 17:17:00 170.2 cm Nohelia Seybold - External Body weight 2024-07-07 17:17:00 90.266 kg Nohelia Seybold - External BMI 2024-07-07 17:17:00 31.17 kg/m2 Nohelia Seybold - External Oxygen saturation in Arterial blood by Pulse oximetry 2024-07-07 17:17:00 96 /min Nohelia Seybold - External Systolic blood pressure 2024-05-08 16:27:00 143 mm[Hg] Nohelia Seybold - External Diastolic blood pressure 2024-05-08 16:27:00 92 mm[Hg] Nohelia Seybold - External Heart rate 2024-05-08 16:27:00 62 /min Nohelia Seybold - External Body weight 2024-05-08 16:27:00 90.538 kg Nohelia Seybold - External BMI 2024-05-08 16:27:00 31.26 kg/m2 Nohelia Seybold - External Systolic blood pressure 2024-01-04 13:22:00 142 mm[Hg] Nohelia Seybold - External Diastolic blood pressure 2024-01-04 13:22:00 78 mm[Hg] Nohelia Seybold - External Heart rate 2024-01-04 12:58:00 59 /min Nohelia Seybold - External Body temperature 2024-01-04 12:58:00 35.83 Digna Nohelia Ringybold - External Respiratory rate 2024-01-04 12:58:00 15 /min Nohelia Seybold - External Body height 2024-01-04 12:58:00 170.2 cm Nohelia Seybold - External Body weight 2024-01-04 12:58:00 86.183 kg Nohelia Seybold - External BMI 2024-01-04 12:58:00 29.76 kg/m2 Nohelia Seybold - External Systolic blood pressure 2024-01-03 18:04:00 133 mm[Hg] Nohelia Seybold - External Diastolic blood pressure 2024-01-03 18:04:00 88 mm[Hg] Nohelia Seybold - External Heart rate 2024-01-03 18:04:00 67 /min Nohelia Seybold - External Body weight 2024-01-03 18:04:00 85 kg Nohelia Seybold - External BMI 2024-01-03 18:04:00 29.35 kg/m2 Nohelia Seybold - External Systolic blood pressure 2023-11-27 12:52:00 122 mm[Hg] Nohelia Seybold - External Diastolic blood pressure 2023-11-27 12:52:00 68 mm[Hg] Nohelia Seybold - External Heart rate 2023-11-27 12:52:00 66 /min Nohelia Seybold - External Body temperature 2023-11-27 12:52:00 36.72 Digna Nohelia Ringybold - External Respiratory rate 2023-11-27 12:52:00 18 /min Nohelia Seybold - External Body height 2023-11-27 12:52:00 170.2 cm Nohelia Seybold - External Body weight 2023-11-27 12:52:00 85.446 kg Nohelia Seybold - External BMI 2023-11-27 12:52:00 29.50 kg/m2 Nohelia Seybold - External Oxygen saturation in Arterial blood by Pulse oximetry 2023-11-27 12:52:00 100 /min Nohelia Seybold - External Systolic blood pressure 2023-08-23 17:59:00 119 mm[Hg] Nohelia Seybold - External Diastolic blood pressure 2023-08-23 17:59:00 76 mm[Hg] Nohelia Seybold - External Heart rate 2023-08-23 17:59:00 62 /min Nohelia Seybold - External Body weight 2023-08-23 17:59:00 88.905 kg Nohelia Seybold - External BMI 2023-08-23 17:59:00 30.70 kg/m2 Nohelia Seybold - External Systolic blood pressure 2023-08-20 18:45:00 112 mm[Hg] Nohelia Seybold - External Diastolic blood pressure 2023-08-20 18:45:00 72 mm[Hg] Nohelia Seybold - External Heart rate 2023-08-20 18:45:00 75 /min Nohelia Seybold - External Body temperature 2023-08-20 18:45:00 36.89 Digna Nohelia Seybold - External Respiratory rate 2023-08-20 18:45:00 16 /min Nohelia Seybold - External Body height 2023-08-20 18:45:00 170.2 cm Nohelia Seybold - External Body weight 2023-08-20 18:45:00 88.451 kg Nohelia Seybold - External BMI 2023-08-20 18:45:00 30.54 kg/m2 Nohelia Seybold - External Systolic blood pressure 2023-04-19 19:12:00 116 mm[Hg] Nohelia Seybold - External Diastolic blood pressure 2023-04-19 19:12:00 70 mm[Hg] Nohelia Seybold - External Heart rate 2023-04-19 19:12:00 82 /min Nohelia Seybold - External Respiratory rate 2023-04-19 19:12:00 18 /min Nohelia Seybold - External Body height 2023-04-19 19:12:00 170.2 cm Nohelia Seybold - External Body weight 2023-04-19 19:12:00 92.987 kg Nohelia Seybold - External BMI 2023-04-19 19:12:00 32.11 kg/m2 Nohelia Seybold - External Oxygen saturation in Arterial blood by Pulse oximetry 2023-04-19 19:12:00 92 /min Nohelia Seybold - External Systolic blood pressure 2023-03-23 18:39:00 108 mm[Hg] Nohelia Seybold - External Diastolic blood pressure 2023-03-23 18:39:00 56 mm[Hg] Nohelia Seybold - External Heart rate 2023-03-23 18:39:00 79 /min Nohelia Seybold - External Body temperature 2023-03-23 18:39:00 36.78 Digna Nohelia Seybold - External Respiratory rate 2023-03-23 18:39:00 16 /min Nohelia Seybold - External Body height 2023-03-23 18:39:00 170.2 cm Nohelia Seybold - External Body weight 2023-03-23 18:39:00 92.987 kg Nohelia Seybold - External BMI 2023-03-23 18:39:00 32.11 kg/m2 Nohelia Seybold - External Systolic blood pressure 2023-03-08 16:33:00 172 mm[Hg] Nohelia Seybold - External Diastolic blood pressure 2023-03-08 16:33:00 107 mm[Hg] Nohelia Seybold - External Heart rate 2023-03-08 16:07:00 80 /min Nohelia Seybold - External Body temperature 2023-03-08 16:07:00 36.61 Digna Nohelia Seybold - External Respiratory rate 2023-03-08 16:07:00 18 /min Nohelia Seybold - External Body height 2023-03-08 16:07:00 170.2 cm Nohelia Seybold - External Body weight 2023-03-08 16:07:00 93.895 kg Nohelia Seybold - External BMI 2023-03-08 16:07:00 32.42 kg/m2 Nohelia Ringybold - External Oxygen saturation in Arterial blood by Pulse oximetry 2023-03-08 16:07:00 99 /min Nohelia Seybold - External Systolic blood pressure 2023-03-07 16:24:00 177 mm[Hg] Nohelia Seybold - External Diastolic blood pressure 2023-03-07 16:24:00 122 mm[Hg] Nohelia Seybold - External Heart rate 2023-03-07 16:24:00 75 /min Nohelia Seybold - External Body height 2023-03-07 15:22:00 170.2 cm Nohelia Seybold - External Body weight 2023-03-07 15:22:00 92.897 kg Nohelia Seybold - External BMI 2023-03-07 15:22:00 32.08 kg/m2 Nohelia Seybold - External Systolic blood pressure 2022-12-14 18:22:00 136 mm[Hg] Nohelia Seybold - External Diastolic blood pressure 2022-12-14 18:22:00 76 mm[Hg] Nohelia Seybold - External Heart rate 2022-12-14 18:22:00 85 /min Nohelia Seybold - External Respiratory rate 2022-12-14 18:22:00 22 /min Nohelia Seybold - External Body height 2022-12-14 18:22:00 170.2 cm Nohelia Seybold - External Body weight 2022-12-14 18:22:00 98.884 kg Nohelia Seybold - External BMI 2022-12-14 18:22:00 34.14 kg/m2 Nohelia Seybold - External Oxygen saturation in Arterial blood by Pulse oximetry 2022-12-14 18:22:00 96 /min Nohleia Seybold - External Body height 2022-12-07 15:10:00 170.2 cm Nohelia Seybold - External Body weight 2022-12-07 15:10:00 95.255 kg Nohelia Seybold - External BMI 2022-12-07 15:10:00 32.89 kg/m2 Nohelia Seybold - External Systolic blood pressure 2022-10-02 19:00:00 146 mm[Hg] Nohelia Seybold - External Diastolic blood pressure 2022-10-02 19:00:00 74 mm[Hg] Nohelia Seybold - External Heart rate 2022-10-02 19:00:00 86 /min Nohelia Seybold - External Body temperature 2022-10-02 19:00:00 36.67 Digna Nohelia Seybold - External Respiratory rate 2022-10-02 19:00:00 16 /min Nohelia Seybold - External Body height 2022-10-02 19:00:00 170.2 cm Nohelia Seybold - External Body weight 2022-10-02 19:00:00 97.07 kg Nohelia Seybold - External BMI 2022-10-02 19:00:00 33.52 kg/m2 Nohelia Seybold - External Body height 2022-09-21 14:45:00 170.2 cm Nohelia Seybold - External Body weight 2022-09-21 14:45:00 95.255 kg Nohelia Seybold - External BMI 2022-09-21 14:45:00 32.89 kg/m2 Nohelia Seybold - External Systolic blood pressure 2022-08-10 19:20:00 153 mm[Hg] Nohelia Seybold - External Diastolic blood pressure 2022-08-10 19:20:00 84 mm[Hg] Nohelia Seybold - External Heart rate 2022-08-10 19:20:00 79 /min Nohelia Seybold - External Body temperature 2022-08-10 19:20:00 36.56 Digna Nohelia Seybold - External Respiratory rate 2022-08-10 19:20:00 20 /min Nohelia Seybold - External Body height 2022-08-10 19:20:00 170.2 cm Nohelia Seybold - External Body weight 2022-08-10 19:20:00 98.249 kg Nohelia Seybold - External BMI 2022-08-10 19:20:00 33.92 kg/m2 Nohelia Seybold - External Oxygen saturation in Arterial blood by Pulse oximetry 2022-08-10 19:20:00 98 /min Nohelia Seybold - External Systolic blood pressure 2022-07-04 19:40:00 130 mm[Hg] Nohelia Seybold - External Diastolic blood pressure 2022-07-04 19:40:00 100 mm[Hg] Nohelia Seybold - External Heart rate 2022-07-04 19:40:00 67 /min Nohelia Seybold - External Body temperature 2022-07-04 19:40:00 36.28 Digna Nohelia Seybold - External Respiratory rate 2022-07-04 19:40:00 16 /min Nohelia Seybold - External Body height 2022-07-04 19:40:00 171.5 cm Nohelia Seybold - External Body weight 2022-07-04 19:40:00 97.977 kg Nohelia Seybold - External BMI 2022-07-04 19:40:00 33.33 kg/m2 Nohelia Hyde - External Oxygen saturation in Arterial blood by Pulse oximetry 2022-07-04 19:40:00 97 /min Nohelia Seybold - External Systolic blood pressure 2022-04-06 18:15:00 130 mm[Hg] Nohelia Seybold - External Diastolic blood pressure 2022-04-06 18:15:00 80 mm[Hg] Nohelia Ringybold - External Heart rate 2022-04-06 18:15:00 99 /min Nohelia Ringybold - External Body weight 2022-04-06 18:15:00 95.528 kg Nohelia Ringybold - External BMI 2022-04-06 18:15:00 32.50 kg/m2 Nohelia Seybold - External Systolic blood pressure 2021-07-28 19:20:00 144 mm[Hg] Nohelia Seybold Diastolic blood pressure 2021-07-28 19:20:00 92 mm[Hg] Nohelia Ringybold Heart rate 2021-07-28 19:20:00 70 /min Nohelia Seybold Respiratory rate 2021-07-28 19:20:00 16 /min Nohelia Hyde Body height 2021-07-28 19:20:00 171.5 cm Nohelia Hyde Body weight 2021-07-28 19:20:00 95.709 kg Nohelia Hyde BMI 2021-07-28 19:20:00 32.56 kg/m2 Nohelia Hyde Oxygen saturation in Arterial blood by Pulse oximetry 2021-07-28 19:20:00 97 /min Nohelia Ringybold Systolic blood pressure 2021-07-04 21:00:00 158 mm[Hg] Nohelia Seybold Diastolic blood pressure 2021-07-04 21:00:00 88 mm[Hg] Nohelia Ringybold Heart rate 2021-07-04 21:00:00 71 /min Nohelia Ringybold Body temperature 2021-07-04 21:00:00 36.22 Digna Nohelia Ringybold Respiratory rate 2021-07-04 21:00:00 16 /min Nohelia Hyde Body height 2021-07-04 21:00:00 171.5 cm Nohelia Hyde Body weight 2021-07-04 21:00:00 97.796 kg Nohelia Hyde BMI 2021-07-04 21:00:00 33.27 kg/m2 Nohelia Ringybanabella Systolic blood pressure 2021-05-06 19:19:00 124 mm[Hg] Nohelia Seybold Diastolic blood pressure 2021-05-06 19:19:00 80 mm[Hg] Nohelia Ringybold Heart rate 2021-05-06 19:19:00 83 /min Nohelia Ringybanabella Body temperature 2021-05-06 19:19:00 36.67 Digna Nohelia Ringybold Respiratory rate 2021-05-06 19:19:00 16 /min Nohelia Hyde Body height 2021-05-06 19:19:00 171.5 cm Nohelia Hyde Body weight 2021-05-06 19:19:00 95.709 kg Nohelia Hyde BMI 2021-05-06 19:19:00 32.56 kg/m2 Nohelia Seybold Systolic blood pressure 2021-03-24 18:29:00 130 mm[Hg] Nohelia Seybold Diastolic blood pressure 2021-03-24 18:29:00 84 mm[Hg] Nohelia Ringybanabella Heart rate 2021-03-24 18:29:00 75 /min Nohelia Ringybold Respiratory rate 2021-03-24 18:29:00 18 /min Nohelia Hyde Body height 2021-03-24 18:29:00 170.8 cm Nohelia Hyde Body weight 2021-03-24 18:29:00 96.163 kg Nohelia Hyde BMI 2021-03-24 18:29:00 32.96 kg/m2 Nohelia Hyde Oxygen saturation in Arterial blood by Pulse oximetry 2021-03-24 18:29:00 98 /min Nohelia Ringybanabella BP Systolic 2019-05-19 10:54:00 139 mm[Hg] Location: RUE; Position: Sitting [facility] BP Diastolic 2019-05-19 10:54:00 91 mm[Hg] Location: RUE; Position: Sitting [facility] Heart Rate 2019-05-19 10:54:00 73 /min [facility] BP Systolic 2019-05-19 10:51:00 140 mm[Hg] Location: LUE; Position: Sitting [facility] BP Diastolic 2019-05-19 10:51:00 90 mm[Hg] Location: LUE; Position: Sitting [facility] Heart Rate 2019-05-19 10:51:00 78 /min [facility] O2 SAT 2019-05-19 10:51:00 96 % Source: RA [facility] BP Systolic 2019-05-19 10:36:00 149 mm[Hg] Location: LUE; Position: Sitting [facility] BP Diastolic 2019-05-19 10:36:00 100 mm[Hg] Location: LUE; Position: Sitting [facility] Heart Rate 2019-05-19 10:36:00 76 /min [facility] BP Systolic 2019-05-19 10:34:00 152 mm[Hg] Location: LUE; Position: Sitting [facility] BP Diastolic 2019-05-19 10:34:00 94 mm[Hg] Location: LUE; Position: Sitting [facility] Heart Rate 2019-05-19 10:34:00 73 /min [facility] Weight 2019-05-19 10:34:00 211 [lb_av] [facility] Body Mass Index Calculated 2019-05-19 10:34:00 31.16 kg/m2 [facility] Height 2019-05-19 10:34:00 69 [in_us] [facility] Temperature 2019-05-19 10:34:00 98 [degF] Method: Temporal [facility] Respiration Rate 2019-05-19 10:34:00 16 /min [facility] O2 SAT 2019-05-14 11:08:00 97 % Source: RA [facility] O2 SAT 2019-05-14 10:59:00 94 % Source: RA [facility] BP Systolic 2019-05-14 10:37:00 135 mm[Hg] Location: LUE; Position: Sitting [facility] BP Diastolic 2019-05-14 10:37:00 90 mm[Hg] Location: LUE; Position: Sitting [facility] Heart Rate 2019-05-14 10:37:00 74 /min Location: L Brachial Artery; [facility] Weight 2019-05-14 10:37:00 212.375 [lb_av] [facility] Body Mass Index Calculated 2019-05-14 10:37:00 31.36 kg/m2 [facility] Height 2019-05-14 10:37:00 69 [in_us] [facility] Temperature 2019-05-14 10:37:00 98.3 [degF] Method: Temporal [facility] Respiration Rate 2019-05-14 10:37:00 16 /min Quality: Normal [facility] BP Systolic 2019-04-03 11:31:00 143 mm[Hg] Location: LUE; Position: Sitting [facility] BP Diastolic 2019-04-03 11:31:00 83 mm[Hg] Location: LUE; Position: Sitting [facility] Height 2019-04-03 11:31:00 69 [in_us] [facility] Weight 2019-04-03 11:31:00 208 [lb_av] [facility] Body Mass Index Calculated 2019-04-03 11:31:00 30.72 kg/m2 [facility] Heart Rate 2019-04-03 11:31:00 76 /min [facility] BP Systolic 2019-03-10 09:54:00 137 mm[Hg] Location: LUE; Position: Sitting [facility] BP Diastolic 2019-03-10 09:54:00 84 mm[Hg] Location: LUE; Position: Sitting [facility] Height 2019-03-10 09:54:00 69 [in_us] [facility] Weight 2019-03-10 09:54:00 211.8 [lb_av] [facility] Body Mass Index Calculated 2019-03-10 09:54:00 31.28 kg/m2 [facility] Heart Rate 2019-03-10 09:54:00 74 /min Location: L Brachial Artery; [facility] Respiration Rate 2019-03-10 09:54:00 18 /min [facility] BP Systolic 2019-02-19 09:41:00 128 mm[Hg] Location: LUE; Position: Sitting [facility] BP Diastolic 2019-02-19 09:41:00 81 mm[Hg] Location: LUE; Position: Sitting [facility] Heart Rate 2019-02-19 09:41:00 61 /min [facility] BP Systolic 2019-02-19 09:21:00 138 mm[Hg] Location: LUE; Position: Sitting [facility] BP Diastolic 2019-02-19 09:21:00 89 mm[Hg] Location: LUE; Position: Sitting [facility] Heart Rate 2019-02-19 09:21:00 67 /min [facility] Height 2019-02-19 09:21:00 69 [in_us] [facility] Weight 2019-02-19 09:21:00 207.1875 [lb_av] [facility] Body Mass Index Calculated 2019-02-19 09:21:00 30.6 kg/m2 [facility] Temperature 2019-02-19 09:21:00 97.6 [degF] Method: Temporal [facility] Respiration Rate 2019-02-19 09:21:00 16 /min [facility] BP Systolic 2018-12-31 11:25:00 129 mm[Hg] Location: LUE; Position: Sitting [facility] BP Diastolic 2018-12-31 11:25:00 79 mm[Hg] Location: LUE; Position: Sitting [facility] Height 2018-12-31 11:25:00 69 [in_us] [facility] Weight 2018-12-31 11:25:00 202.375 [lb_av] [facility] Body Mass Index Calculated 2018-12-31 11:25:00 29.89 kg/m2 [facility] Heart Rate 2018-12-31 11:25:00 73 /min [facility] BP Systolic 2018-12-06 15:51:00 134 mm[Hg] Location: LUE; Position: Sitting [facility] BP Diastolic 2018-12-06 15:51:00 81 mm[Hg] Location: LUE; Position: Sitting [facility] Height 2018-12-06 15:51:00 69 [in_us] [facility] Weight 2018-12-06 15:51:00 208.125 [lb_av] [facility] Body Mass Index Calculated 2018-12-06 15:51:00 30.74 kg/m2 [facility] Heart Rate 2018-12-06 15:51:00 77 /min [facility] Temperature 2018-12-06 15:51:00 98.1 [degF] Method: Temporal [facility] Respiration Rate 2018-12-06 15:51:00 16 /min [facility] BP Systolic 2018-09-30 11:24:00 127 mm[Hg] Location: LUE; Position: Sitting [facility] BP Diastolic 2018-09-30 11:24:00 83 mm[Hg] Location: LUE; Position: Sitting [facility] Height 2018-09-30 11:24:00 69 [in_us] [facility] Weight 2018-09-30 11:24:00 202 [lb_av] [facility] Body Mass Index Calculated 2018-09-30 11:24:00 29.83 kg/m2 [facility] Temperature 2018-09-30 11:24:00 98 [degF] Method: Oral [facility] Heart Rate 2018-09-30 11:24:00 73 /min [facility] BP Systolic 2018-07-01 11:23:00 146 mm[Hg] Location: LUE; Position: Sitting [facility] BP Diastolic 2018-07-01 11:23:00 79 mm[Hg] Location: LUE; Position: Sitting [facility] Height 2018-07-01 11:23:00 69 [in_us] [facility] Weight 2018-07-01 11:23:00 198 [lb_av] [facility] Body Mass Index Calculated 2018-07-01 11:23:00 29.24 kg/m2 [facility] Temperature 2018-07-01 11:23:00 98.1 [degF] [facility] Heart Rate 2018-07-01 11:23:00 69 /min [facility] BP Systolic 2018-04-01 11:16:00 135 mm[Hg] Location: LUE; Position: Sitting [facility] BP Diastolic 2018-04-01 11:16:00 73 mm[Hg] Location: LUE; Position: Sitting [facility] Height 2018-04-01 11:16:00 69 [in_us] [facility] Weight 2018-04-01 11:16:00 204.5 [lb_av] [facility] Body Mass Index Calculated 2018-04-01 11:16:00 30.2 kg/m2 [facility] Temperature 2018-04-01 11:16:00 98.4 [degF] Method: Oral [facility] Heart Rate 2018-04-01 11:16:00 71 /min [facility] BP Systolic 2018-02-11 08:41:00 117 mm[Hg] Location: LUE; Position: Sitting [facility] BP Diastolic 2018-02-11 08:41:00 74 mm[Hg] Location: LUE; Position: Sitting [facility] Weight 2018-02-11 08:41:00 202 [lb_av] [facility] Body Mass Index Calculated 2018-02-11 08:41:00 29.83 kg/m2 [facility] Height 2018-02-11 08:41:00 69 [in_us] [facility] Temperature 2018-02-11 08:41:00 97.6 [degF] Method: Temporal [facility] Respiration Rate 2018-02-11 08:41:00 16 /min [facility] Heart Rate 2018-02-11 08:41:00 75 /min [facility] BP Systolic 2018-01-29 08:52:00 130 mm[Hg] Location: LUE; Position: Sitting [facility] BP Diastolic 2018-01-29 08:52:00 90 mm[Hg] Location: LUE; Position: Sitting [facility] Height 2018-01-29 08:52:00 69 [in_us] [facility] Weight 2018-01-29 08:52:00 201 [lb_av] [facility] Body Mass Index Calculated 2018-01-29 08:52:00 29.68 kg/m2 [facility] Temperature 2018-01-29 08:52:00 98 [degF] Method: Temporal [facility] Respiration Rate 2018-01-29 08:52:00 16 /min [facility] Heart Rate 2018-01-29 08:52:00 60 /min [facility] BP Systolic 2017-12-31 11:12:00 142 mm[Hg] Location: LUE; Position: Sitting [facility] BP Diastolic 2017-12-31 11:12:00 84 mm[Hg] Location: LUE; Position: Sitting [facility] Height 2017-12-31 11:12:00 69 [in_us] [facility] Weight 2017-12-31 11:12:00 202.4 [lb_av] [facility] Body Mass Index Calculated 2017-12-31 11:12:00 29.89 kg/m2 [facility] Heart Rate 2017-12-31 11:12:00 60 /min [facility] BP Systolic 2017-10-02 10:02:00 129 mm[Hg] Location: LUE; Position: Sitting [facility] BP Diastolic 2017-10-02 10:02:00 72 mm[Hg] Location: LUE; Position: Sitting [facility] Height 2017-10-02 10:02:00 69 [in_us] [facility] Weight 2017-10-02 10:02:00 203.375 [lb_av] [facility] Body Mass Index Calculated 2017-10-02 10:02:00 30.03 kg/m2 [facility] Temperature 2017-10-02 10:02:00 98.3 [degF] Method: Oral [facility] Heart Rate 2017-10-02 10:02:00 72 /min [facility] Procedures Procedure Date / Time Performed Performing Clinician Source [facility] 2022-07-04 19:38:21 Jannet Smith Seybold - External XRAY Chest 2 views [id number] 2019-05-14 00:00:00 [facility] [[facility]] CBC (INCLUDES DIFF/PLT) 2019-04-03 00:00:00 [facility] [[facility]] CMP W/EGFR 2019-04-03 00:00:00 [facility] [[facility]] C-REACTIVE PROTEIN 2019-04-03 00:00:00 [facility] [[facility]] SED RATE BY MARYAM GREENBERG 2019-04-03 00:00:00 [facility] Colonoscopy 2019-03-11 00:00:00 [facility] [[facility] CMP W/EGFR 2019-02-22 00:00:00 [facility] [[facility]] LIPID PANEL 2019-02-22 00:00:00 [facility] [[facility]] LIPID PANEL 2019-02-19 00:00:00 [facility] [[facility]] HEPATITIS C ANTIBODY 2019-02-19 00:00:00 [facility] [[facility]] CBC (INCLUDES DIFF/PLT) 2018-12-31 00:00:00 [facility] [[facility]] CMP W/EGFR 2018-12-31 00:00:00 [facility] [[facility]] C-REACTIVE PROTEIN 2018-12-31 00:00:00 [facility] [[facility]] SED RATE BY MARYAM GREENBERG 2018-12-31 00:00:00 [facility] [[facility]] CBC (INCLUDES DIFF/PLT) 2018-09-30 00:00:00 [facility] [[facility]] CMP W/EGFR 2018-09-30 00:00:00 [facility] [[facility]] C-REACTIVE PROTEIN 2018-09-30 00:00:00 [facility] [[facility]] SED RATE BY MARYAM GREENBERG 2018-09-30 00:00:00 [facility] [[facility]] CBC (INCLUDES DIFF/PLT) 2018-07-01 00:00:00 [facility] [[facility]] CMP W/EGFR 2018-07-01 00:00:00 [facility] [[facility]] C-REACTIVE PROTEIN 2018-07-01 00:00:00 [facility] [[facility]] SED RATE BY MARYAM GREENBERG 2018-07-01 00:00:00 [facility] [[facility]] CBC (INCLUDES DIFF/PLT) 2018-04-01 00:00:00 [facility] [[facility]] CMP W/EGFR 2018-04-01 00:00:00 [facility] [[facility]] C-REACTIVE PROTEIN 2018-04-01 00:00:00 [facility] [[facility]] SED RATE BY MARYAM GREENBERG 2018-04-01 00:00:00 [facility] [QH] LIPID PANEL WITH REFLEX TO DIRECT LDL 2018-04-01 00:00:00 [facility] [[facility]] TSH, 3RD GENERATION W/REFLEX TO FT4 2018-04-01 00:00:00 [facility] [QH] LIPID PANEL WITH REFLEX TO DIRECT LDL 2018-01-29 00:00:00 [facility] [[facility]] CBC (INCLUDES DIFF/PLT) 2018-01-29 00:00:00 [facility] [[facility]] CMP W/EGFR 2018-01-29 00:00:00 [facility] [[facility]] TSH, 3RD GENERATION W/REFLEX TO FT4 2018-01-29 00:00:00 [facility] [[facility]] CBC (INCLUDES DIFF/PLT) 2017-12-31 00:00:00 [facility] [[facility]] CMP W/EGFR 2017-12-31 00:00:00 [facility] [[facility]] C-REACTIVE PROTEIN 2017-12-31 00:00:00 [facility] [[facility]] SED RATE BY MARYAM GREENBERG 2017-12-31 00:00:00 [facility] [[facility]] CMP W/EGFR 2017-10-05 00:00:00 [facility] [[facility]] CBC (INCLUDES DIFF/PLT) 2017-10-02 00:00:00 [facility] [[facility]] CMP W/EGFR 2017-10-02 00:00:00 [facility] [[facility]] C-REACTIVE PROTEIN 2017-10-02 00:00:00 [facility] [[facility]] SED RATE BY MARYAM GREENBERG 2017-10-02 00:00:00 [facility] Plan of Care Planned Activity Planned Date Details Comments Source Diagnostic Test Pending 2019-05-19 00:00:00 [QL[facility]] CMP W/EGFR [code = [QLH] CMP W/EGFR] [facility] Diagnostic Test Pending 2019-05-19 00:00:00 [QLH] LIPID PANEL [code = [QLH] LIPID PANEL] [facility] Diagnostic Test Pending 2019-05-19 00:00:00 [QLH] CMP W/EGFR [code = [QLH] CMP W/EGFR] [facility] Diagnostic Test Pending 2019-05-19 00:00:00 [QLH] LIPID PANEL [code = [QLH] LIPID PANEL] [facility] Diagnostic Test Pending 2019-03-21 00:00:00 Colonoscopy [code = 89934076] [facility] Diagnostic Test Pending 2019-03-21 00:00:00 Colonoscopy [code = 28408329] [facility] Diagnostic Test Pending 2019-03-21 00:00:00 Colonoscopy [code = 45400985] [facility] Future Scheduled Test [QLH] CMP W/EGFR [code = [QLH] CMP W/EGFR] Approx 02Nov2017 [facility] Future Scheduled Test [QL[facility]] CBC (INCLUDES DIFF/PLT) [code = [QLH] CBC (INCLUDES DIFF/PLT)] Approx 04Jul2019 [facility] Future Scheduled Test [QLH] CMP W/EGFR [code = [QLH] CMP W/EGFR] Approx 04Jul2019 [facility] Future Scheduled Test [QLH] C-REACTIVE PROTEIN [code = [QLH] C-REACTIVE PROTEIN] Approx 04Jul2019 [facility] Future Scheduled Test [QLH] SED RATE BY MODIFIED WESTERGREN [code = [QLH] SED RATE BY MODIFIED WESTERGREN] Approx 04Jul2019 [facility] Future Scheduled Test [QLH] CMP W/EGFR [code = [QLH] CMP W/EGFR] Approx 02Nov2017 [facility] Future Scheduled Test [QL[facility]] CBC (INCLUDES DIFF/PLT) [code = [QLH] CBC (INCLUDES DIFF/PLT)] Approx 04Jul2019 [facility] Future Scheduled Test [QLH] CMP W/EGFR [code = [QLH] CMP W/EGFR] Approx 04Jul2019 [facility] Future Scheduled Test [QLH] C-REACTIVE PROTEIN [code = [QLH] C-REACTIVE PROTEIN] Approx 04Jul2019 [facility] Future Scheduled Test [QLH] SED RATE BY MODIFIED WESTERGREN [code = [QLH] SED RATE BY MODIFIED WESTERGREN] Approx 04Jul2019 [facility] Encounters Start Date/Time End Date/Time Encounter Type Admission Type Attending Clinicians Care Facility Care Department Encounter ID Source 2024-08-22 12:59:00 Outpatient Fragoso Roegr [facility] [id number] [facility] 2025-02-01 00:00:00 2025-02-01 00:00:00 Outpatient LIDA SANABRIA [id number] [facility] 2025-01-23 00:00:00 2025-01-23 00:00:00 Outpatient MARVIN MARTIN [id number] [facility] 2024-12-21 00:00:00 2024-12-21 00:00:00 Outpatient MARVIN MARTIN [id number] [facility] 2024-12-01 00:00:00 2024-12-01 00:00:00 OFFICE VISIT ESTAB PT LEVEL 4 [facility] [id number] [facility] 2024-12-01 00:00:00 2024-12-01 00:00:00 SUB ANNUAL [facility] WELLNESS VISIT [facility]LMLC ST[facility]C [id number] [facility] 2024-11-26 00:00:00 2024-11-26 00:00:00 Outpatient MARVIN MARTIN [id number] [facility] 2024-11-06 00:00:00 2024-11-06 00:00:00 Outpatient MD NOHELIA LARSON [id number] [facility] 2024-11-06 00:00:00 2024-11-06 00:00:00 (TEL) [facility]C [facility]C [id number] [facility] 2024-11-04 00:00:00 2024-11-04 00:00:00 Outpatient GERMANIA COLE [id number] [facility] 2024-10-27 00:00:00 2024-10-27 00:00:00 Outpatient LIDA SANABRIA [id number] [facility] 2024-09-28 00:00:00 2024-09-28 00:00:00 (WEB) [facility]LMLC ST[facility]C [id number] [facility] 2024-09-13 00:00:00 2024-09-13 00:00:00 Outpatient MARVIN MARTIN [id number] [facility] 2024-09-11 10:45:00 2024-09-11 10:45:00 Outpatient LIDA SANABRIA [id number] [facility] 2024-08-22 00:00:00 2024-08-22 00:00:00 OFFICE VISIT NEW PT LEVEL 4 [facility]C ST[facility]C [id number] [facility] 2024-08-02 00:00:00 2024-08-02 00:00:00 Outpatient JANNET SMITH [id number] [facility] 2024-08-01 00:00:00 2024-08-01 00:00:00 Outpatient LIDA SANABRIA [id number] [facility] 2024-07-07 11:30:00 2024-07-07 11:30:00 Outpatient MARVIN MARTIN [id number] [facility] 2024-06-27 09:00:00 2024-06-27 09:00:00 Outpatient LAB53 [facility] CORMEIR [id number] [facility] 2024-06-26 00:00:00 2024-06-26 00:00:00 Outpatient HAM MOODY [id number] [facility] 2024-06-19 13:30:00 2024-06-19 13:30:00 Outpatient JUDAH PEÑA [id number] [facility] 2024-06-06 00:00:00 2024-06-06 00:00:00 Outpatient JANNET SMITH [id number] [facility] 2024-06-06 00:00:00 2024-06-06 00:00:00 Outpatient MAR[facility]IN MARTIN [id number] [facility] 2024-05-08 11:15:00 2024-05-08 11:15:00 Outpatient [id number] NOHELIA CORMIER [id number] [facility] 2024-05-08 10:45:00 2024-05-08 10:45:00 Outpatient LIDA SANABRIA [id number] [facility] 2024-05-07 00:00:00 2024-05-07 00:00:00 Outpatient GERMANIA COLE [facility] [id number] [facility] 2024-05-07 00:00:00 2024-05-07 00:00:00 Outpatient LIDA SANABRIA [id number] [facility] 2024-04-27 00:00:00 2024-04-27 00:00:00 Outpatient MARVIN MARTIN [id number] [facility] 2024-04-25 11:00:00 2024-04-25 11:00:00 Outpatient SHILPA DUQUESELINA [id number] [facility]-02 10:00:00 2024-04-02 10:00:00 Outpatient ARIANA DOUGLAS [facility] [id number] [facility] 2024-03-31 00:00:00 2024-03-31 00:00:00 [facility]ART[facility] [id number] [facility] 2024-03-27 00:00:00 2024-03-27 00:00:00 [facility] SMITH [id number] [facility] 2024-03-25 00:00:00 2024-03-25 00:00:00 Outpatient [facility]NABRIA [id number] [facility] 2024-03-25 00:00:00 2024-03-25 00:00:00 Outpatient JIMMY SANABRIAKKIRTI CORMIER [id number] [facility] 2024-03-25 00:00:00 2024-03-25 00:00:00 Outpatient LIDA SANABRIA [id number] [facility] 2024-03-17 00:00:00 2024-03-17 00:00:00 Outpatient MARVIN MARTIN [id number] [facility] 2024-03-17 00:00:00 2024-03-17 00:00:00 Outpatient MARVIN MARTIN [id number] [facility] 2024-03-14 08:05:00 2024-03-14 08:05:00 Outpatient LAB90 NOHELIA CORMIER [id number] [facility] 2024-03-12 00:00:00 2024-03-12 00:00:00 Outpatient MARVIN MARTIN [facility] CORMI[facility] [id number] [facility] 2024-03-08 00:00:00 2024-03-08 00:00:00 Outpatient MARVIN MARTIN [facility] CORMIER [id number] [facility] 2024-02-15 13:30:00 2024-02-15 13:30:00 Outpatient FLORENCENAIDA DORA Vasquez [facility] CORMIER [id number] [facility] 2024-02-11 00:00:00 2024-02-11 00:00:00 Outpatient [facility]ANNET SMITH [id number] [facility] 2024-01-24 00:00:00 2024-01-24 00:00:00 Outpatient MARVIN MARTIN NOHELIA CORMIER [id number] [facility] 2024-01-10 00:00:00 2024-01-10 00:00:00 Outpatient HEIDYHAM [facility] CORMIER [id number] [facility] 2024-01-10 00:00:00 2024-01-10 00:00:00 Outpatient ABDOUL SIARA [facility] [id number] [facility] 2024-01-08 00:00:00 2024-01-08 00:00:00 Outpatient MARVIN MARTIN NOHELIA CORMIER [id number] Nohelia Seybold 2024-01-07 00:00:00 2024-01-07 00:00:00 Outpatient JANNET SMITH [id number] No[facility] Seybold 2024-01-04 08:00:00 2024-01-04 08:00:00 Outpatient MARVIN MARTIN NOHELIA CORMIER [id number] Nohelia [facility]bold 2024-01-03 14:00:00 2024-01-03 14:00:00 Outpatient HJH014 NOHELIA CORMIER [id number] Nohelia Seybold 2024-01-03 13:30:00 2024-01-03 13:30:00 Outpatient LIDA SANABRIA NOHELIA [facility]MIER [id number] [facility] 2023-12-05 00:00:00 2023-12-05 00:00:00 Outpatient MARVIN MARTIN NOHELIA [facility]ER [id number] [facility] 2023-12-04 00:00:00 2023-12-04 00:00:00 Outpatient MARVIN MARTIN NOHELIA [id number] [facility] 2023-12-02 00:00:00 2023-12-02 00:00:00 Outpatient MARVIN MARTIN NOHELIA [facility] [id number] [facility] 2023-11-27 08:45:00 2023-11-27 08:45:00 Outpatient LOBO NOHELIA CORMIER [id number] [facility] 2023-11-27 08:00:00 2023-11-27 08:00:00 Outpatient MARVIN MARTIN [facility] [id number] [facility]-27 00:00:00 2023-11-27 00:00:00 Outpatient MARVIN MARTIN [facility] [id number] [facility] 2023-11-27 00:00:00 2023-11-27 00:00:00 Outpatient MARVIN MARTIN [facility] [id number] [facility]00 2023 00:00:00 Outpatient JANNET SMITH [id number] [facility] 2023-11-05 11:00:00 2023-11-05 11:00:00 Outpatient MARVIN MARTIN NOHELIA CORMIER [id number] [facility] 2023-09-24 00:00:00 2023-09-24 00:00:00 Outpatient JANNET SMITH [id number] [facility] 2023-08-23 13:15:00 2023-08-23 13:15:00 Outpatient SANABRIA LIDA [facility] [id number] [facility]-23 07:15:00 2023-08-23 07:15:00 Outpatient LABSalvador CORMIER [id number] Nohelia [facility] 2023-08-20 13:45:00 2023-08-20 13:45:00 Outpatient JANNET SMITH [id number] [facility] 2023-08-17 13:00:00 2023-08-17 13:00:00 Outpatient FELICIA HOLLOWAY [id number] [facility] 2023-08-16 00:00:00 2023-08-16 00:00:00 Outpatient [facility] SMITH [id number] [facility] 2023-07-16 00:00:00 2023-07-16 00:00:00 Outpatient LIDA SANABRIA [id number] [facility] 2023-06-20 10:00:00 2023-06-20 10:00:00 Outpatient FELICIA HOLLOWAY [id number] [facility] 2023-06-18 00:00:00 2023-06-18 00:00:00 Outpatient FELICIA HOLLOWAY [id number] Nohelia [facility] 2023-05-24 00:00:00 2023-05-24 00:00:00 Outpatient FELICIA HOLLOWAY [id number] [facility] 2023-05-17 00:00:00 2023-05-17 00:00:00 Outpatient JANNET SMITH [id number] [facility]ia [facility] 2023-05-14 08:15:00 2023-05-14 08:15:00 Outpatient LAB08 NOHELIA CORMIER [id number] Nohelia [facility] 2023-05-09 00:00:00 2023-05-09 00:00:00 Outpatient JANNET SMITH [id number] [facility] 2023-04-19 14:00:00 2023-04-19 14:00:00 Outpatient LAB53 NOHELIA CORMIER [id number] Nohelia [facility] 2023-04-19 13:30:00 2023-04-19 13:30:00 Outpatient LIDA SANABRIA [facility] [id number] [facility] 2023-04-16 13:45:00 2023-04-16 13:45:00 Outpatient JANNET SMITH [id number] [facility] 2023-04-16 08:00:00 2023-04-16 08:00:00 Outpatient NOHELIA CORMIER [id number] [facility] 2023-04-11 13:00:00 2023-04-11 13:00:00 Outpatient FELICIA HOLLOWAY [id number] [facility] 2023-03-30 00:00:00 2023-03-30 00:00:00 Outpatient JANNET SMITH [id number] [facility] 2023-03-29 00:00:00 2023-03-29 00:00:00 Outpatient JANNET SMITH [id number] [facility] 2023-03-29 00:00:00 2023-03-29 00:00:00 Outpatient JANNET SMITH [id number] [facility] 2023-03-25 00:00:00 2023-03-25 00:00:00 Outpatient FELICIA HOLLOWAY [id number] [facility] 2023-03-24 10:20:00 2023-03-24 10:20:00 Outpatient LAB53 NOHELIA CORMIER [id number] [facility] 2023-03-23 14:15:00 2023-03-23 14:15:00 Outpatient LAB08 NOHELIA CORMIER [id number] [facility] 2023-03-23 13:45:00 2023-03-23 13:45:00 Outpatient SMITHJANNET Donnelly [id number] [facility] 2023-03-22 14:00:00 2023-03-22 14:00:00 Outpatient HAM MOODY [id number] [facility] 2023-03-08 11:00:00 2023-03-08 11:00:00 Outpatient QUELDAOSHAM [id number] [facility] 2023-03-07 10:30:00 2023-03-07 10:30:00 Outpatient FELICIA HOLLOWAY [id number] [facility] 2023-02-23 13:30:00 2023-02-23 13:30:00 Outpatient DORA COLES NOHELIA [facility]MIER [id number] [facility] 2023-01-12 14:45:00 2023-01-12 14:45:00 Outpatient JANNET SMITH [id number] [facility] 2022-12-19 00:00:00 2022-12-19 00:00:00 Outpatient NOHELIA CORMIER [id number] [facility] 2022-12-17 00:00:00 2022-12-17 00:00:00 Outpatient FELICIA HOLLOWAY [id number] [facility] 2022-12-14 14:00:00 2022-12-14 14:00:00 Outpatient LAB53 NOHELIA CORMIER [id number] [facility] 2022-12-14 13:30:00 2022-12-14 13:30:00 Outpatient LIDA SANABRIA [id number] [facility] 2022-12-12 00:00:00 2022-12-12 00:00:00 Outpatient NOHELIA CORMIER [id number] [facility] 2022-12-07 10:00:00 2022-12-07 10:00:00 Outpatient FELICIA HOLLOWAY [id number] [facility] 2022-10-03 07:20:00 2022-10-03 07:20:00 Outpatient LAB08 NOHELIA CORMIER [id number] [facility] 2022-10-02 14:00:00 2022-10-02 14:00:00 Outpatient JANNET SMITH [id number] [facility] 2022-09-21 09:45:00 2022-09-21 09:45:00 Outpatient FELICIA HOLLOWAY [id number] [facility] 2022-09-13 13:20:00 2022-09-13 13:20:00 Outpatient CHUCHO YEPEZ NOHELIA CORMIER [id number] [facility] 2022-09-13 00:00:00 2022-09-13 00:00:00 Outpatient LIDA SANABRIA [id number] [facility] 2022-09-07 11:05:00 2022-09-07 11:05:00 Outpatient TOMOGRAPHY, STACY COR[facility]ER [id number] [facility] 2022-09-07 10:00:00 2022-09-07 10:00:00 Outpatient CHUCHO YEPEZ NOHELIA [facility]ER [id number] [facility] 2022-08-27 00:00:00 2022-08-27 00:00:00 Outpatient JANNET SMITH [id number] [facility] 2022-08-25 13:30:00 2022-08-25 13:30:00 [facility]A COLES [id number] [facility] 2022-08-10 14:00:00 2022-08-10 14:00:00 Outpatient LAB53 NOHELIA CORMIER [id number] [facility] 2022-08-10 13:30:00 2022-08-10 13:30:00 Outpatient LIDA SANABRIA [id number] [facility] 2022-07-04 14:30:00 2022-07-04 14:30:00 Outpatient LAB08 NOHELIA CORMIER [id number] [facility] 2022-07-04 13:30:00 2022-07-04 13:30:00 Outpatient JANNET SMITH [id number] [facility] 2022-06-01 00:00:00 2022-06-01 00:00:00 Outpatient LIDA SANABRIA [id number] [facility] 2022-06-01 00:00:00 2022-06-01 00:00:00 Outpatient JANNET SMITH [id number] [facility] 2022-04-28 11:30:00 2022-04-28 11:30:00 Outpatient COVID-PFIZE R VACC, CLEAR NOHELIA NOHELIA [id number] [facility] 2022-04-06 14:00:00 2022-04-06 14:00:00 Outpatient LAB53 NOHELIA NOHELIA [id number] [facility] 2022-04-06 13:30:00 2022-04-06 13:30:00 Outpatient LIDA SANABRIA NOHELIA NOHELIA [id number] [facility] 2022-03-03 13:15:00 2022-03-03 13:15:00 Outpatient ZELDA DORA Vasquez NOHELIA CORMIER [id number] [facility] 2021-12-01 14:15:00 2021-12-01 14:15:00 Outpatient LAB53 NOHELIA CORMIER [id number] [facility] 2021-12-01 13:45:00 2021-12-01 13:45:00 Outpatient COVID-PFIZE R VACC, SUSAN CORMIER NOHELIA [id number] [facility] 2021-12-01 13:30:00 2021-12-01 13:45:00 Office Visit Lida Sanabria SUSAN SO [id number] [facility] 2021-09-09 13:30:00 2021-09-09 13:30:00 Outpatient JANNET SMITH [id number] [facility] 2021-09-05 00:00:00 2021-09-05 00:00:00 Outpatient ATUL SILVA [id number] [facility] 2021-09-01 07:30:00 2021-09-01 07:30:00 Outpatient ATUL SILVA [id number] [facility] 2021-08-09 08:25:00 2021-08-09 08:25:00 Outpatient LAB08 NOHELIA CORMIER [id number] [facility] 2021-08-04 00:00:00 2021-08-04 00:00:00 [facility]patient [facility] SM[facility] [id number] [facility] 2021-07-28 13:30:00 2021-07-28 13:45:00 Office Visit Lida Sanabria [id number] [facility] 2021-07-12 00:00:00 2021-07-12 00:00:00 Outpatient ATUL SILVA [id number] [facility] 2021-07-07 00:00:00 2021-07-07 00:00:00 Outpatient JANNET SMITH [id number] [facility] 2021-07-04 15:30:00 2021-07-04 15:30:00 Outpatient LABSalvador CORMIER [id number] [facility] 2021-07-04 15:00:00 2021-07-04 15:15:00 Office Visit Atul Silva [id number] [id number] [id number] [facility] 2021-06-20 15:00:00 2021-06-20 15:00:00 Outpatient ATUL SILVA [id number] [facility] 2021-06-14 11:45:00 2021-06-14 11:45:00 Outpatient NOHELIA CORMIER [id number] [facility] 2021-06-14 10:45:00 2021-06-14 10:45:00 Outpatient NOHELIA CORMIER [id number] [facility] 2021-06-14 10:15:00 2021-06-14 10:15:00 Outpatient NOHELIA CORMIER [id number] [facility] 2021-06-14 09:15:00 2021-06-14 09:15:00 Outpatient NOHELIA CORMIER [id number] [facility] 2021-06-06 08:00:00 2021-06-06 08:00:00 Outpatient TRED08 NOHELIA CORMIER [id number] [facility] 2021-06-01 00:00:00 2021-06-01 00:00:00 Outpatient SMITH, JAIME NOHELIA CORMIER [id number] [facility] 2021-06-01 00:00:00 2021-06-01 00:00:00 Outpatient ASHWINRENNY SUÁREZ NOHELIA CORMIER [id number] [facility] 2021-05-19 00:00:00 2021-05-19 00:00:00 Outpatient SARAH JANNETTRINI CORMIER [id number] [facility] 2021-05-13 14:00:00 2021-05-13 14:00:00 Outpatient TREDSalvador CORMIER [id number] [facility] 2021-05-13 13:30:00 2021-05-13 13:30:00 Outpatient LAB08 NOHELIA CORMIER [id number] [facility] 2021-05-13 00:00:00 2021-05-13 00:00:00 Outpatient SARAH JANNETTRINI CORMIER [id number] [facility] 2021-05-11 00:00:00 2021-05-11 00:00:00 Outpatient SARAH JANNETTRINI CORMIER [id number] [facility] 2021-05-06 15:00:00 2021-05-06 15:00:00 Outpatient LABSalvador NOHELIA CORMIER [id number] [facility] 2021-05-06 14:30:00 2021-05-06 14:30:00 Outpatient TREDSalvador NOHELIA CORMIER [id number] [facility] 2021-05-06 13:30:00 2021-05-06 14:15:00 Office Visit Jannet Smith [id number] 350.1.13.13 [id number] [facility] 2021-05-06 00:00:00 2021-05-06 00:00:00 Outpatient [facility]ANNET SMITH [id number] [facility] 2021-03-31 09:20:00 2021-03-31 09:20:00 Outpatient COVID-PFIZE R BOOSTER, CLEAR NOHELIA NOHELIA [id number] [facility] 2021-03-30 10:00:00 2021-03-30 10:00:00 Outpatient COVID-PFIZE R BOOSTER, [place] NOHELIA CORMIER [id number] [facility] 2021-03-30 00:00:00 2021-03-30 00:00:00 Outpatient MD NOHELIA LARSON [id number] [facility] 2021-03-24 14:00:00 2021-03-24 14:00:00 Outpatient LAB53 NOHELIA CORMIER [id number] [facility] 2021-03-24 13:22:40 2021-03-24 13:37:40 Office Visit Lida Sanabria CLEAR SO 1.2.840.114 350.1.13.13 [id number] [id number] [facility] 2021-02-26 09:50:00 2021-02-26 09:50:00 Outpatient FLU, CLEAR NOHELIA CORMIER [id number] [facility] 2020-12-10 00:00:00 2020-12-10 00:00:00 Outpatient SMITH JANNET NOHELIA CORMIER [id number] [facility] 2019-05-19 10:30:00 2019-05-19 10:30:00 Appointmen t; ANGEL PAREKH APRN SAXE, KAILA, APRN [facility] [id number] [place] [facility] 2019-05-14 10:30:00 2019-05-14 10:30:00 Appointmen t; ANGEL PAREKH APRN SAXE, KAILA, APRN [facility] [id number] [place] [facility] 2019-04-03 11:30:00 2019-04-03 11:30:00 Appointmen t; ALICE CERRATO M.D. GIBSON, MARY CATHERINE, M.D. [facility], [address] [id number] [place] [facility] 2019-03-21 06:29:00 2019-03-21 06:29:00 Outpatient MHSE MHSE [address] [facility] 2019-03-10 10:00:00 2019-03-10 10:00:00 Appointmen t; ERNESTINA CORDOVA M.D. CATALANO, MARC, M.D. [facility], [address] [id number] [place] [facility] 2019-02-19 09:00:00 2019-02-19 09:00:00 Appointmen t; ANGLE PAREKH, ANGEL MENARD, HAZEL [facility] [id number] [place] [facility] 2018-12-31 11:30:00 2018-12-31 11:30:00 Appointmen t; ALICE CERRATO M.D. GIBSON, MARY CATHERINE, M.D. [facility], [address] [id number] [place] [facility] 2018-12-06 16:00:2018-12-06 16:00:00 Appointmen t; SAMIRA OCASIO M.D. BORTOLOTTI, JULIE, M.D. [facility], [address] [id number] [place] [facility] 2018-09-30 11:30:00 2018-09-30 11:30:00 Appointmen t; ALICE CERRATO M.D. GIBSON, MARY CATHERINE, M.D. [facility] [address] [id number] [facility] 2018-07-15 10:00:2018-07-15 10:00:00 Appointmen t; OTILIO ESTRELLA D.O. YEH, SHAO-CHUN, D.O. [facility] UTP [id number] [place] [facility] 2018-07-15 10:00:00 2018-07-15 10:00:00 Appointmen t; OTILIO ESTRELLA D.O. YEH, SHAO-CHUN, D.O. [facility] [id number] [place] [facility] 2018-07-01 11:30:00 2018-07-01 11:30:00 Appointmen t; CERRATOALICE HARRINGTON M.D. GIBSON, MARY CATHERINE, M.D. [facility] [address] [id number] [place] [facility] 2018-04-01 11:30:00 2018-04-01 11:30:00 Appointmen t; ALICE CERRATO M.D. GIBSON, MARY CATHERINE, M.D. [facility] [address] [id number] [place] [facility] 2018-02-11 08:30:00 2018-02-11 08:30:00 Appointmen t; OTILIO ESTRELLA D.O. YEH, SHAO-CHUN, D.O. [facility] [id number] [place] [facility] [place] 2018-01-29 09:00:00 2018-01-29 09:00:00 Appointmen t; OTILIO ESTRELLA D.O. YEH, SHAO-CHUN, D.O. [facility] [id number] [place] [facility] 2017-12-31 11:30:00 2017-12-31 11:30:00 Appointmen t; ALICE CERRATO M.D. GIBSON, MARY CATHERINE, M.D. [facility] [id number] [place] [facility] 2017-10-02 09:30:00 2017-10-02 09:30:00 Appointmen t; ALICE CERRATO M.D. GIBSON, MARY CATHERINE, M.D. [facility] [address] [id number] [place] [facility] 2017-06-25 11:00:00 2017-06-25 11:00:00 Appointmen t; ALICE CERRATO M.D. GIBSON, MARY CATHERINE, M.D. [facility] [id number] [place] [facility] 2017-03-27 11:00:00 2017-03-27 11:00:00 Appointmen t; ALICE CERRATO M.D. GIBSON, MARY CATHERINE, M.D. [facility] UTP [id number] [place] [facility] 2016-12-26 11:00:00 2016-12-26 11:00:00 Appointmen t; ALICE CERRATO M.D. GIBSON, MARY CATHERINE, M.D. [facility] [id number] [place] [facility] 2016-09-26 11:30:00 2016-09-26 11:30:00 Appointmen t; ALICE CERRATO M.D. GIBSON, MARY CATHERINE, M.D. [facility] [id number] [place] [facility] 2016-07-18 09:00:00 2016-07-18 09:00:00 Appointmen t; ALICE CERRATO M.D. GIBSON, MARY CATHERINE, M.D. [facility] [id number] [place] [facility] Results Test Description Test Time Test Comments Results Result Co mments Source [facility] CBC (INCLUDES DIFF/PLT)2019-07-08 09:42:01* Test Item Value Reference Range Interpretation Comme nts WBC (test code = 6690-2) 6.1 {K/CMM} 3.7-10.4 RBC; Below Low Threshold (te st code = 789-8) 4.42 {M/CMM} 4.70-6.10 Hgb (test code = 718-7) 14.5 g/dl 14.0-18.0 Hct (test code = 06553-6) 42.3 % 42.0-54.0 MCV; Above High Threshold (t est code = 787-2) 95.7 fL 80.0-94.0 MCH; Above High Threshold (t est code = 785-6) 32.8 pg 27.0-31.0 MCHC (test code = 786-4) 34.2 g/dl 32.0-36.0 RDW; Above High Threshold (t est code = 788-0) 14.7 % 11.5-14.5 Platelet (test code = 86760-2) 262 {K/CMM} 133-450 Mean Platelet Volume (test c ode = 51987-7) 8.1 fL 7.4-10.4 [facility]] [id number] 09:42:01* Test Item Value Reference Range Interpretation Comme nts Segmented Neutrophils (test code = 30651-7) 72.2 % 45.0-75.0 Monocytes (test code = 72121-0) 7.0 % 2.0-12.0 Lymphocytes; Below Low Thres hold (test code = 17752-1) 18.5 % 20.0-40.0 Eosinophils (test code = 04598-7) 1.8 % 0.0-4.0 Basophils (test code = 706-2) 0.5 % 0.0-1.0 Segs-Bands # (test code = 87024-9) 4.4 {K/CMM} 1.5-8.1 Lymphocytes # (test code = 40706-6) 1.1 {K/CMM} 1.0-5.5 Monocytes # (test code = 65310-7) 0.4 {K/CMM} 0.0-0.8 Eosinophils # (test code = 71208-2) 0.1 {K/CMM} 0.0-0.5 [facility]] CMP [id number] 09:42:01* Test Item Value Reference Range Interpretation Comme nts Sodium Level (test code = 2951-2) 139 {mEq/l} 135-145 Potassium Level (test code = 2823-3) 4.5 {mEq/l} 3.5-5.1 Chloride Level (test code = 5-0) 106 {mEq/l} 95-109 Carbon Dioxide (test code = 2027-9) 28 {mEq/l} 24-32 AGAP; Below Low Threshold (test code = 17503-9) 9.5 {mEq/l} 10.0-20.0 Glucose Lvl; Above High Threshold (test code = 2345-7) 101 mg/dl 70-99 Adult reference range values reflect the clinical guidelinesof the [place] Diabetes [employer]. Creatinine Lvl (test code = 2160-0) 1.00 mg/dl 0.50-1.40 Blood Urea Nitrogen (test code = 3094-0) 12 mg/dl 7-22 BUN/Creatinine Ratio (test code = 3097-3) 12 6-25 Total Protein (test code = 2885-2) 7.7 g/dl 6.4-8.4 Albumin Lvl (test code = 1751-7) 4.1 g/dl 3.5-5.0 Globulin (test code = 57056-6) 3.6 g/dl 2.7-4.2 A/G Ratio (test code = 1759-0) 1.1 0.7-1.6 Calcium Level Total (test code = 58536-2) 9.1 mg/dl 8.5-10.5 ALT (test code = 1743-4) 49 u/l 0-65 AST (test code = 01564-0) 31 u/l 0-37 Alk Phos (test code = 1783-0) 69 u/l 39-136 The pediatric re ference ranges for this test represent a CLSI-basedtransference of the CALIPER database of pediatric reference intervals to theB[facility] Oklahoma CityActivaided Orthoticsta analyzer (Clinical Biochemistry 46 (2013): 4332-5056). [facility] [employer] has not internally validated these referenceranges and therefore they should be used only in the context of a thoroughclinical assessment. Bili Total (test code = 1975-2) 0.9 mg/dl 0.2-1.3 eGFR (test code = 56910-3) 80 {ML/MIN/1.7} The eGFR is calculat ed using the CKD-EPI formula. In most young, healthyindividuals the eGFR will be >90 mL/min/1.73m2. The eGFR declines with age. AneGFR of 60-89 may be normal in some populations, particularly the elderly, forwhom the CKD-EPI formula has not been extensively validated. Use of the eGFR isnot recommended in the following populations:Individuals with unstable creatinine concentrations, including patients and those with serious co-morbid conditions.Patients with extremes in muscle mass or diet.The data above are obtained from the National Kidney Disease Education Program(NKDEP) which additionally recommends that when the eGFR is used in patientswith extremes of body mass index for purposes of drug dosing, the eGFR shouldbe multiplied by the estimated BMI. [facility][QL] C-REACTIVE [id number] 09:42:01* Test Item Value Reference Range Interpretation Comme nts CRP (test code = CRP) <2.9 <=2.9 [facility][QL] SED RATE BY MODIFIED [id number] 09:42:01* Test Item Value Reference Range Interpretation Comme nts Sedimentation Rate (test cod e = 05211-5) 14 {mm/hr} 0-15 [facility] PhysiciansXRAY Chest 2 views [id number] 11:47:00EXAM: XR CHEST 2 VIEWSDATE: 05/14/2019 11:47 CSTINDICATION: - R06.02 Shortness of breathCOMPARISON:NoneTECHNIQUE: PA and lateral chest radiographsFINDINGS: No lung parenchymal or pleural abnormalities are seen. Maricarmen andpulmonary vasculature are normal. Cardiac silhouette is normal in size withmilddescending aortic tortuosity No acute bony abnormality is identified.Mild anterior spondylosis is seen in the thoracic spine.IMPRESSION: No acute cardiopulmonary abnormality.--Read by: Shadi Solorio MDDictated Date/time: 05/14/19 12:19Electronically Signed by: Shadi Solorio MD 05/14/1912:19FINAL REPORT [facility]] CMP [id number] 11:50:01* Test Item Value Reference Range Interpretation Comme nts Sodium Level (test code = 2951-2) 136 {mEq/l} 135-145 Potassium Level (test code = 2823-3) 4.7 {mEq/l} 3.5-5.1 Chloride Level (test code = 2075-0) 106 {mEq/l} 95-109 Carbon Dioxide (test code = 2027-9) 27 {mEq/l} 24-32 AGAP; Below Low Threshold (test code = 96781-2) 7.7 {mEq/l} 10.0-20.0 Glucose Lvl; Above High Threshold (test code = 2345-7) 102 mg/dl 70-99 Adult reference range values reflect the clinical guidelinesof the [place] Diabetes [employer]. Creatinine Lvl (test code = 2160-0) 1.00 mg/dl 0.50-1.40 Blood Urea Nitrogen (test code = 3094-0) 10 mg/dl 7-22 BUN/Creatinine Ratio (test code = 3097-3) 10 6-25 Total Protein (test code = 2885-2) 7.7 g/dl 6.4-8.4 Albumin Lvl (test code = 1751-7) 4.1 g/dl 3.5-5.0 Globulin (test code = 75785-4) 3.6 g/dl 2.7-4.2 A/G Ratio (test code = 1759-0) 1.1 0.7-1.6 Calcium Level Total (test code = 41146-1) 9.5 mg/dl 8.5-10.5 ALT (test code = 1743-4) 57 u/l 0-65 AST (test code = 13338-5) 30 u/l 0-37 Bili Total (test code = 1975-2) 0.8 mg/dl 0.2-1.3 Alk Phos (test code = 1783-0) 79 u/l 39-136 The pediatric re ference ranges for this test represent a CLSI-basedtransference of the CALIPER database of pediatric reference intervals to thePixelligent analyzer (Clinical Biochemistry 46 (2013): 5535-7497). [facility] [employer] has not internally validated these referenceranges and therefore they should be used only in the context of a thoroughclinical assessment. eGFR (test code = 76792-1) 80 {ML/MIN/1.7} The eGFR is calculat ed using the CKD-EPI formula. In most young, healthyindividuals the eGFR will be >90 mL/min/1.73m2. The eGFR declines with age. AneGFR of 60-89 may be normal in some populations, particularly the elderly, forwhom the CKD-EPI formula has not been extensively validated. Use of the eGFR isnot recommended in the following populations:Individuals with unstable creatinine concentrations, including patients and those with serious co-morbid conditions.Patients with extremes in muscle mass or diet.The data above are obtained from the National Kid[employer] Disease Education Program(NKDEP) which additionally recommends that when the eGFR is used in patientswith extremes of body mass index for purposes of drug dosing, the eGFR shouldbe multiplied by the estimated BMI. [facility]] C-REACTIVE [id number] 11:50:01* Test Item Value Reference Range Interpretation Comme nts CRP (test code = CRP) <2.9 <=2.9 [facility]] CBC (INCLUDES DIFF/PLT)2019-04-03 11:50:01* Test Item Value Reference Range Interpretation Comme nts WBC (test code = 6690-2) 7.3 {K/CMM} 3.7-10.4 RBC; Below Low Threshold (te st code = 789-8) 4.32 {M/CMM} 4.70-6.10 Hgb (test code = 718-7) 14.4 g/dl 14.0-18.0 Hct; Below Low Threshold (te st code = 30473-0) 41.2 % 42.0-54.0 MCV; Above High Threshold (t est code = 787-2) 95.4 fL 80.0-94.0 MCH; Above High Threshold (t est code = 785-6) 33.3 pg 27.0-31.0 MCHC (test code = 786-4) 34.9 g/dl 32.0-36.0 RDW; Above High Threshold (t est code = 788-0) 14.6 % 11.5-14.5 Platelet (test code = 11809-8) 289 {K/CMM} 133-450 Mean Platelet Volume (test c ode = 33958-6) 7.9 fL 7.4-10.4 [facility][QL] [id number] 11:50:01* Test Item Value Reference Range Interpretation Comme nts Segmented Neutrophils (test code = 06909-8) 71.4 % 45.0-75.0 Monocytes (test code = 84144-0) 5.9 % 2.0-12.0 Lymphocytes; Below Low Thres hold (test code = 92095-3) 19.5 % 20.0-40.0 Eosinophils (test code = 23500-7) 2.8 % 0.0-4.0 Basophils (test code = 706-2) 0.4 % 0.0-1.0 Segs-Bands # (test code = 98268-6) 5.2 {K/CMM} 1.5-8.1 Lymphocytes # (test code = 44099-4) 1.4 {K/CMM} 1.0-5.5 Monocytes # (test code = 60454-4) 0.4 {K/CMM} 0.0-0.8 Eosinophils # (test code = 40968-4) 0.2 {K/CMM} 0.0-0.5 [facility][QLH] SED RATE BY MODIFIED [id number] 11:50:01* Test Item Value Reference Range Interpretation Comme nts Sedimentation Rate; Above Hi gh Threshold (test code = 25697-2) 25 {mm/hr} 0-15 [facility]] LIPID [id number] 09:56:00* Test Item Value Reference Range Interpretation Comme nts CHOLESTEROL, TOTAL; Above High Threshold (test code = 2093-3) 237 mg/dl <200 HDL CHOLESTEROL; Normal (test code = 2085-9) 43 mg/dl >40 N TRIGLYCERIDES; Above High Threshold (test code = 2571-8) 241 mg/dl <150 If a non-fasting specimen was collected, considerrepeat triglyceride testing on a fasting specimenif clinically indicated. Kadeem et al. J. of Clin. Lipidol. 2015;9:129-169. LDL-CHOLESTEROL; Above High Threshold (test code = 03026-1) 153 {MG/DL DOMINGA} Reference range: <10 0 Desirable range <100 mg/dL for primary prevention; <70 mg/dL for patients with CHD or diabetic patients with > or = 2 CHD risk factors. LDL-C is now calculated using the Linwood-Vogel calculation, which is a validated novel method providing better accuracy than the Friedewald equation in the estimation of LDL-C. Linwood SS et al. KIANNA. 2013;310(19): 1583-2327 (http://education.[employer].com/faq/F AQ164) CHOL/HDLC RATIO (test code = CHOL/HDLC RATIO) 5.5 {CALC} <5.0 NON HDL CHOLESTEROL (test code = NON HDL CHOLESTEROL) 194 {MG/DL DOMINGA} <130 For patients with diabetes plus 1 major ASCVD risk factor, treating to a non-HDL-C goal of <100 mg/dL (LDL-C of <70 mg/dL) is considered a therapeutic option. [facility]] HEPATITIS C [id number] 09:56:00* Test Item Value Reference Range Interpretation Comme nts HEPATITIS C ANTIBODY; Normal (test code = 39625-2) NON-REACTIVE NON-REACTIVE N SIGNAL TO CUT-OFF (test code = SIGNAL TO CUT-OFF) 0.03 <1.00 N HCV antibody was non-reactive. There is no laboratory evidence of HCV infection. In most cases, no further action is required. However,if recent HCV exposure is suspected, a test for HCV RNA(test code 50469) is suggested. For additional information please refer tohttp://education.[employer]/fa q/ADA70o5(This link is being provided for informational/educati onal purposes only.) [facility]] CBC (INCLUDES DIFF/PLT)2018-12-31 11:56:01* Test Item Value Reference Range Interpretation Comme nts WBC (test code = 6690-2) 6.0 {K/CMM} 3.7-10.4 RBC; Below Low Threshold (te st code = 789-8) 4.38 {M/CMM} 4.70-6.10 Hgb (test code = 718-7) 14.6 g/dl 14.0-18.0 Hct; Below Low Threshold (te st code = 26074-2) 41.9 % 42.0-54.0 MCV; Above High Threshold (t est code = 787-2) 95.8 fL 80.0-94.0 MCH; Above High Threshold (t est code = 785-6) 33.2 pg 27.0-31.0 MCHC (test code = 786-4) 34.7 g/dl 32.0-36.0 RDW (test code = 788-0) 14.3 % 11.5-14.5 Platelet (test code = 37017-5) 249 {K/CMM} 133-450 Mean Platelet Volume (test c ode = 31872-1) 8.2 fL 7.4-10.4 [facility]] [id number] 11:56:01* Test Item Value Reference Range Interpretation Comme nts Segmented Neutrophils (test code = 74158-9) 66.1 % 45.0-75.0 Monocytes (test code = 90647-5) 7.3 % 2.0-12.0 Lymphocytes (test code = 96773-9) 24.5 % 20.0-40.0 Eosinophils (test code = 18176-7) 1.7 % 0.0-4.0 Basophils (test code = 706-2) 0.4 % 0.0-1.0 Segs-Bands # (test code = 57621-3) 4.0 {K/CMM} 1.5-8.1 Lymphocytes # (test code = 77431-3) 1.5 {K/CMM} 1.0-5.5 Monocytes # (test code = 18334-0) 0.4 {K/CMM} 0.0-0.8 Eosinophils # (test code = 01492-6) 0.1 {K/CMM} 0.0-0.5 [facility]] SED RATE BY MODIFIED [id number] 11:56:01* Test Item Value Reference Range Interpretation Comme nts Sedimentation Rate (test cod e = 85683-6) 14 {mm/hr} 0-15 [facility][QL[facility]] CMP [id number] 11:56:01* Test Item Value Reference Range Interpretation Comme nts Sodium Level (test code = 2951-2) 139 {mEq/l} 135-145 Potassium Level (test code = 2823-3) 4.9 {mEq/l} 3.5-5.1 Chloride Level (test code = 5-0) 104 {mEq/l} 95-109 Carbon Dioxide (test code = 2027-9) 26 {mEq/l} 24-32 AGAP (test code = 60674-5) 13.9 {mEq/l} 10.0-20.0 Glucose Lvl (test code = 2345-7) 98 mg/dl 70-99 Adult reference range values reflect the clinical guidelinesof the [place] Diabetes [employer]. Creatinine Lvl (test code = 2160-0) 1.10 mg/dl 0.50-1.40 Blood Urea Nitrogen (test code = 3094-0) 10 mg/dl 7-22 BUN/Creatinine Ratio (test code = 3097-3) 9 6-25 Total Protein (test code = 2885-2) 8.3 g/dl 6.4-8.4 Albumin Lvl (test code = 1751-7) 4.4 g/dl 3.5-5.0 Globulin (test code = 44381-1) 3.9 g/dl 2.7-4.2 A/G Ratio (test code = 1759-0) 1.1 0.7-1.6 Calcium Level Total (test code = 66374-5) 9.1 mg/dl 8.5-10.5 ALT (test code = 1743-4) 34 u/l 0-65 AST (test code = 70960-3) 16 u/l 0-37 Alk Phos (test code = 1783-0) 80 u/l 39-136 The pediatric re ference ranges for this test represent a CLSI-basedtransference of the CALIPER database of pediatric reference intervals to the[facility] analyzer (Clinical Biochemistry 46 (2013): 4416-8053). [facility] [employer] has not internally validated these referenceranges and therefore they should be used only in the context of a thoroughclinical assessment. Bili Total (test code = 1975-2) 0.9 mg/dl 0.2-1.3 eGFR (test code = 23288-7) 71 {ML/MIN/1.7} The eGFR is calculat ed using the CKD-EPI formula. In most young, healthyindividuals the eGFR will be >90 mL/min/1.73m2. The eGFR declines with age. AneGFR of 60-89 may be normal in some populations, particularly the elderly, forwhom the CKD-EPI formula has not been extensively validated. Use of the eGFR isnot recommended in the following populations:Individuals with unstable creatinine concentrations, including patients and those with serious co-morbid conditions.Patients with extremes in muscle mass or diet.The data above are obtained from the National Kidney Disease Education Program(NKDEP) which additionally recommends that when the eGFR is used in patientswith extremes of body mass index for purposes of drug dosing, the eGFR shouldbe multiplied by the estimated BMI. [facility]] C-REACTIVE [id number] 11:56:01* Test Item Value Reference Range Interpretation Comme nts CRP (test code = CRP) <2.9 <=2.9 [facility][QL] CBC (INCLUDES DIFF/PLT)2018-09-30 12:10:01* Test Item Value Reference Range Interpretation Comme nts WBC (test code = 6690-2) 6.6 {K/CMM} 3.7-10.4 RBC; Below Low Threshold (te st code = 789-8) 4.27 {M/CMM} 4.70-6.10 Hgb (test code = 718-7) 14.2 g/dl 14.0-18.0 Hct; Below Low Threshold (te st code = 15418-2) 41.3 % 42.0-54.0 MCV; Above High Threshold (t est code = 787-2) 96.7 fL 80.0-94.0 MCH; Above High Threshold (t est code = 785-6) 33.3 pg 27.0-31.0 MCHC (test code = 786-4) 34.4 g/dl 32.0-36.0 RDW (test code = 788-0) 14.3 % 11.5-14.5 Platelet (test code = 23566-5) 253 {K/CMM} 133-450 Mean Platelet Volume (test c ode = 28071-4) 8.3 fL 7.4-10.4 [facility][QL] [id number] 12:10:01* Test Item Value Reference Range Interpretation Comme nts Segmented Neutrophils (test code = 53432-4) 67.3 % 45.0-75.0 Monocytes (test code = 82272-9) 6.5 % 2.0-12.0 Lymphocytes (test code = 07286-5) 24.0 % 20.0-40.0 Eosinophils (test code = 76670-2) 1.7 % 0.0-4.0 Basophils (test code = 706-2) 0.5 % 0.0-1.0 Segs-Bands # (test code = 00828-9) 4.5 {K/CMM} 1.5-8.1 Lymphocytes # (test code = 30561-2) 1.6 {K/CMM} 1.0-5.5 Monocytes # (test code = 97416-9) 0.4 {K/CMM} 0.0-0.8 Eosinophils # (test code = 20904-5) 0.1 {K/CMM} 0.0-0.5 [facility][QL] CMP [id number] 12:10:01* Test Item Value Reference Range Interpretation Comme nts Sodium Level (test code = 2951-2) 141 {mEq/l} 135-145 Potassium Level (test code = 2823-3) 4.7 {mEq/l} 3.5-5.1 Chloride Level (test code = 2075-0) 107 {mEq/l} 95-109 Carbon Dioxide (test code = 2027-9) 28 {mEq/l} 24-32 AGAP (test code = 30858-9) 10.7 {mEq/l} 10.0-20.0 Glucose Lvl; Above High Threshold (test code = 2345-7) 100 mg/dl 70-99 Adult reference range values reflect the clinical guidelinesof the [place] Diabetes Association. Creatinine Lvl (test code = 2160-0) 1.00 mg/dl 0.50-1.40 Blood Urea Nitrogen (test code = 3094-0) 14 mg/dl 7-22 BUN/Creatinine Ratio (test code = 3097-3) 14 6-25 Total Protein (test code = 2885-2) 7.5 g/dl 6.4-8.4 Albumin Lvl (test code = 1751-7) 4.2 g/dl 3.5-5.0 Globulin (test code = 43027-0) 3.3 g/dl 2.7-4.2 A/G Ratio (test code = 1759-0) 1.3 0.7-1.6 Calcium Level Total (test code = 07365-6) 8.8 mg/dl 8.5-10.5 ALT (test code = 1743-4) 48 u/l 0-65 AST (test code = 24506-3) 28 u/l 0-37 Alk Phos (test code = 1783-0) 77 u/l 39-136 Bili Total (test code = 1974-) 0.7 mg/dl 0.2-1.3 eGFR (test code = 19782-5) 80 {ML/MIN/1.7} The eGFR is calculat ed using the CKD-EPI formula. In most young, healthyindividuals the eGFR will be >90 mL/min/1.73m2. The eGFR declines with age. AneGFR of 60-89 may be normal in some populations, particularly the elderly, forwhom the CKD-EPI formula has not been extensively validated. Use of the eGFR isnot recommended in the following populations:Individuals with unstable creatinine concentrations, including patients and those with serious co-morbid conditions.Patients with extremes in muscle mass or diet.The data above are obtained from the National Kidney Disease Education Program(NKDEP) which additionally recommends that when the eGFR is used in patientswith extremes of body mass index for purposes of drug dosing, the eGFR shouldbe multiplied by the estimated BMI. [facility]] C-REACTIVE [id number] 12:10:01* Test Item Value Reference Range Interpretation Comme nts CRP (test code = CRP) <2.9 <=2.9 [facility][QL] SED RATE BY MODIFIED [id number] 12:10:01* Test Item Value Reference Range Interpretation Comme nts Sedimentation Rate; Above Hi gh Threshold (test code = 47892-1) 20 {mm/hr} 0-15 [facility][QL] CBC (INCLUDES DIFF/PLT)2018-07-01 11:47:01* Test Item Value Reference Range Interpretation Comme nts WBC (test code = 6690-2) 5.7 {K/CMM} 3.7-10.4 RBC; Below Low Threshold (te st code = 789-8) 4.24 {M/CMM} 4.70-6.10 Hgb; Below Low Threshold (te st code = 718-7) 13.9 g/dl 14.0-18.0 Hct; Below Low Threshold (te st code = 78703-5) 41.2 % 42.0-54.0 MCV; Above High Threshold (t est code = 787-2) 97.2 fL 80.0-94.0 MCH; Above High Threshold (t est code = 785-6) 32.7 pg 27.0-31.0 MCHC (test code = 786-4) 33.6 g/dl 32.0-36.0 RDW (test code = 788-0) 13.9 % 11.5-14.5 Platelet (test code = 17249-0) 243 {K/CMM} 133-450 Mean Platelet Volume (test c ode = 79548-7) 8.5 fL 7.4-10.4 [facility]] [id number] 11:47:01* Test Item Value Reference Range Interpretation Comme nts Segmented Neutrophils (test code = 16901-8) 67.0 % 45.0-75.0 Monocytes (test code = 58021-5) 6.6 % 2.0-12.0 Lymphocytes (test code = 04669-7) 24.3 % 20.0-40.0 Eosinophils (test code = 22007-6) 1.8 % 0.0-4.0 Basophils (test code = 706-2) 0.3 % 0.0-1.0 Segs-Bands # (test code = 36132-8) 3.8 {K/CMM} 1.5-8.1 Lymphocytes # (test code = 91906-0) 1.4 {K/CMM} 1.0-5.5 Monocytes # (test code = 35983-1) 0.4 {K/CMM} 0.0-0.8 Eosinophils # (test code = 31074-5) 0.1 {K/CMM} 0.0-0.5 [facility]] CMP [id number] 11:47:01* Test Item Value Reference Range Interpretation Comme nts Sodium Level (test code = 2951-2) 139 {mEq/l} 135-145 Potassium Level (test code = 2823-3) 4.7 {mEq/l} 3.5-5.1 Chloride Level (test code = 2075-0) 104 {mEq/l} 95-109 Carbon Dioxide (test code = 2027-9) 25 {mEq/l} 24-32 AGAP (test code = 64941-2) 14.7 {mEq/l} 10.0-20.0 Glucose Lvl (test code = 2345-7) 86 mg/dl 70-99 Adult reference range values reflect the clinical guidelinesof the [place] Diabetes [employer]. Creatinine Lvl (test code = 2160-0) 0.90 mg/dl 0.50-1.40 Blood Urea Nitrogen (test code = 3094-0) 14 mg/dl 7-22 BUN/Creatinine Ratio (test code = 3097-3) 16 6-25 Total Protein (test code = 2885-2) 7.9 g/dl 6.4-8.4 Albumin Lvl (test code = 1751-7) 4.4 g/dl 3.5-5.0 Globulin (test code = 29664-7) 3.5 g/dl 2.7-4.2 A/G Ratio (test code = 1759-0) 1.3 0.7-1.6 Calcium Level Total (test code = 51058-3) 9.0 mg/dl 8.5-10.5 ALT (test code = 1743-4) 37 u/l 0-65 AST (test code = 32019-3) 23 u/l 0-37 Alk Phos (test code = 1783-0) 73 u/l 39-136 Bili Total (test code = 1974-2) 0.8 mg/dl 0.2-1.3 eGFR (test code = 61722-6) 91 {ML/MIN/1.7} The eGFR is calculat ed using the CKD-EPI formula. In most young, healthyindividuals the eGFR will be >90 mL/min/1.73m2. The eGFR declines with age. AneGFR of 60-89 may be normal in some populations, particularly the elderly, forwhom the CKD-EPI formula has not been extensively validated. Use of the eGFR isnot recommended in the following populations:Individuals with unstable creatinine concentrations, including patients and those with serious co-morbid conditions.Patients with extremes in muscle mass or diet.The data above are obtained from the National Kidney Disease Education Program(NKDEP) which additionally recommends that when the eGFR is used in patientswith extremes of body mass index for purposes of drug dosing, the eGFR shouldbe multiplied by the estimated BMI. [facility][QL] C-REACTIVE [id number] 11:47:01* Test Item Value Reference Range Interpretation Comme nts CRP (test code = CRP) <2.9 <=2.9 [facility][QL] SED RATE BY MODIFIED [id number] 11:47:01* Test Item Value Reference Range Interpretation Comme nts Sedimentation Rate (test cod e = 33821-5) 15 {mm/hr} 0-15 [facility][Q] LIPID PANEL WITH REFLEX TO DIRECT [id number] 09:53:01* Test Item Value Reference Range Interpretation Comme nts LDL; Above High Threshold (t est code = 91430-0) 139 mg/dl <=99 Chol; Above High Threshold ( test code = 2093-3) 215 mg/dl <=199 Trig (test code = 2571-8) 147 mg/dl <=149 HDL Cholesterol; Below Low Threshold (test code = 2085-9) 47 mg/dl >=61 CHD Risk (test code = 77010-2) 4.57 4.00-7.30 VLDL (test code = VLDL) 29 [facility]] TSH, 3RD GENERATION W/REFLEX TO [id number] 09:53:00* Test Item Value Reference Range Interpretation Comme nts TSH (test code = 09655-2) 1.380 {uIU/ml} 0.360-3.740 [facility]] CBC (INCLUDES DIFF/PLT)2018-04-01 11:44:01* Test Item Value Reference Range Interpretation Comme nts WBC (test code = 6690-2) 7.1 {K/CMM} 3.7-10.4 RBC; Below Low Threshold (te st code = 789-8) 4.28 {M/CMM} 4.70-6.10 Hgb (test code = 718-7) 14.1 g/dl 14.0-18.0 Hct; Below Low Threshold (te st code = 43492-6) 40.5 % 42.0-54.0 MCV; Above High Threshold (t est code = 787-2) 94.8 fL 80.0-94.0 MCH; Above High Threshold (t est code = 785-6) 33.1 pg 27.0-31.0 MCHC (test code = 786-4) 34.9 g/dl 32.0-36.0 RDW (test code = 788-0) 14.1 % 11.5-14.5 Platelet (test code = 08078-8) 277 {K/CMM} 133-450 Mean Platelet Volume (test c ode = 36468-9) 8.4 fL 7.4-10.4 [facility]] [id number] 11:44:01* Test Item Value Reference Range Interpretation Comme nts Segmented Neutrophils (test code = 82260-7) 63.8 % 45.0-75.0 Monocytes (test code = 29437-9) 6.3 % 2.0-12.0 Lymphocytes (test code = 93249-8) 27.0 % 20.0-40.0 Eosinophils (test code = 96483-6) 2.5 % 0.0-4.0 Basophils (test code = 706-2) 0.4 % 0.0-1.0 Segs-Bands # (test code = 92538-3) 4.5 {K/CMM} 1.5-8.1 Lymphocytes # (test code = 76275-4) 1.9 {K/CMM} 1.0-5.5 Monocytes # (test code = 63102-3) 0.4 {K/CMM} 0.0-0.8 Eosinophils # (test code = 67278-4) 0.2 {K/CMM} 0.0-0.5 [facility]] SED RATE BY MODIFIED [id number] 11:44:01* Test Item Value Reference Range Interpretation Comme nts Sedimentation Rate; Above Hi gh Threshold (test code = 26492-9) 24 {mm/hr} 0-15 [facility]] CMP [id number] 11:44:01* Test Item Value Reference Range Interpretation Comme nts Sodium Level (test code = 2951-2) 140 {mEq/l} 135-145 Potassium Level (test code = 2823-3) 4.9 {mEq/l} 3.5-5.1 Chloride Level (test code = 5-0) 106 {mEq/l} 95-109 Carbon Dioxide (test code = 2027-9) 26 {mEq/l} 24-32 AGAP (test code = 35710-3) 12.9 {mEq/l} 10.0-20.0 Glucose Lvl (test code = 2345-7) 87 mg/dl 70-99 Adult reference range values reflect the clinical guidelinesof the [place] Diabetes [employer]. Creatinine Lvl (test code = 2160-0) 1.00 mg/dl 0.50-1.40 Blood Urea Nitrogen (test code = 3094-0) 12 mg/dl 7-22 BUN/Creatinine Ratio (test code = 3097-3) 12 6-25 Total Protein (test code = 2885-2) 7.6 g/dl 6.4-8.4 Albumin Lvl (test code = 1751-7) 4.3 g/dl 3.5-5.0 Globulin (test code = 51854-1) 3.3 g/dl 2.7-4.2 A/G Ratio (test code = 1759-0) 1.3 0.7-1.6 Calcium Level Total (test code = 52070-2) 9.1 mg/dl 8.5-10.5 ALT (test code = 1743-4) 34 u/l 0-65 AST (test code = 46091-1) 21 u/l 0-37 Bili Total (test code = 1975-2) 0.6 mg/dl 0.2-1.3 Alk Phos (test code = 1783-0) 78 u/l 39-136 eGFR (test code = 85986-8) 80 {ML/MIN/1.7} The eGFR is calculat ed using the CKD-EPI formula. In most young, healthyindividuals the eGFR will be >90 mL/min/1.73m2. The eGFR declines with age. AneGFR of 60-89 may be normal in some populations, particularly the elderly, forwhom the CKD-EPI formula has not been extensively validated. Use of the eGFR isnot recommended in the following populations:Individuals with unstable creatinine concentrations, including patients and those with serious co-morbid conditions.Patients with extremes in muscle mass or diet.The data above are obtained from the National Kidney Disease Education Program(NKDEP) which additionally recommends that when the eGFR is used in patientswith extremes of body mass index for purposes of drug dosing, the eGFR shouldbe multiplied by the estimated BMI. [facility]] C-REACTIVE [id number] 11:44:01* Test Item Value Reference Range Interpretation Comme nts CRP (test code = CRP) <2.9 <=2.9 [facility]] CBC (INCLUDES DIFF/PLT)2017-12-31 11:35:01* Test Item Value Reference Range Interpretation Comme nts WBC (test code = 6690-2) 6.5 {K/CMM} 3.7-10.4 RBC; Below Low Threshold (te st code = 789-8) 4.12 {M/CMM} 4.70-6.10 Hgb; Below Low Threshold (te st code = 718-7) 13.7 g/dl 14.0-18.0 Hct; Below Low Threshold (te st code = 15300-3) 39.9 % 42.0-54.0 MCV; Above High Threshold (t est code = 787-2) 96.8 fL 80.0-94.0 MCH; Above High Threshold (t est code = 785-6) 33.3 pg 27.0-31.0 MCHC (test code = 786-4) 34.4 g/dl 32.0-36.0 RDW (test code = 788-0) 14.1 % 11.5-14.5 Platelet (test code = 29021-1) 277 {K/CMM} 133-450 Mean Platelet Volume (test c ode = 23063-6) 7.8 fL 7.4-10.4 [facility]] [id number] 11:35:01* Test Item Value Reference Range Interpretation Comme nts Segmented Neutrophils (test code = 13202-5) 72.0 % 45.0-75.0 Monocytes (test code = 64431-6) 6.1 % 2.0-12.0 Lymphocytes; Below Low Thres hold (test code = 02889-1) 19.8 % 20.0-40.0 Eosinophils (test code = 35460-3) 1.8 % 0.0-4.0 Basophils (test code = 706-2) 0.3 % 0.0-1.0 Segs-Bands # (test code = 40299-3) 4.7 {K/CMM} 1.5-8.1 Lymphocytes # (test code = 18500-3) 1.3 {K/CMM} 1.0-5.5 Monocytes # (test code = 75514-5) 0.4 {K/CMM} 0.0-0.8 Eosinophils # (test code = 34228-7) 0.1 {K/CMM} 0.0-0.5 [facility]] SED RATE BY MODIFIED [id number] 11:35:01* Test Item Value Reference Range Interpretation Comme nts Sedimentation Rate (test cod e = 59419-0) 10 {mm/hr} 0-15 [facility]] CMP [id number] 11:35:01* Test Item Value Reference Range Interpretation Comme nts Sodium Level (test code = 2951-2) 142 {mEq/l} 135-145 Potassium Level (test code = 2823-3) 4.8 {mEq/l} 3.5-5.1 Chloride Level (test code = 5-0) 106 {mEq/l} 95-109 Carbon Dioxide (test code = 2027-9) 30 {mEq/l} 24-32 AGAP (test code = 28927-7) 10.8 {mEq/l} 10.0-20.0 Glucose Lvl (test code = 2345-7) 96 mg/dl 70-99 Adult reference range values reflect the clinical guidelinesof the [place] Diabetes [employer]. Creatinine Lvl (test code = 2160-0) 1.00 mg/dl 0.50-1.40 Blood Urea Nitrogen (test code = 3094-0) 8 mg/dl 7-22 BUN/Creatinine Ratio (test code = 3097-3) 8 6-25 Total Protein (test code = 2885-2) 7.1 g/dl 6.4-8.4 Albumin Lvl (test code = 1751-7) 3.9 g/dl 3.5-5.0 Globulin (test code = 80230-1) 3.2 g/dl 2.7-4.2 A/G Ratio (test code = 1759-0) 1.2 0.7-1.6 Calcium Level Total (test code = 10541-6) 8.9 mg/dl 8.5-10.5 ALT (test code = 1743-4) 48 u/l 0-65 AST; Above High Threshold (test code = 24722-9) 43 u/l 0-37 Bili Total (test code = 1974-) 0.4 mg/dl 0.2-1.3 Alk Phos (test code = 1783-0) 72 u/l 39-136 eGFR (test code = 00382-7) 80 {ML/MIN/1.7} The eGFR is calculat ed using the CKD-EPI formula. In most young, healthyindividuals the eGFR will be >90 mL/min/1.73m2. The eGFR declines with age. AneGFR of 60-89 may be normal in some populations, particularly the elderly, forwhom the CKD-EPI formula has not been extensively validated. Use of the eGFR isnot recommended in the following populations:Individuals with unstable creatinine concentrations, including patients and those with serious co-morbid conditions.Patients with extremes in muscle mass or diet.The data above are obtained from the National Kid[employer] Education Program(NKDEP) which additionally recommends that when the eGFR is used in patientswith extremes of body mass index for purposes of drug dosing, the eGFR shouldbe multiplied by the estimated BMI. [facility]] C-REACTIVE [id number] 11:35:01* Test Item Value Reference Range Interpretation Comme nts CRP (test code = CRP) 3.5 mg/L <=2.9 [facility]] CMP [id number] 13:26:01* Test Item Value Reference Range Interpretation Comme nts Sodium Level (test code = 2951-2) 138 {mEq/l} 135-145 Potassium Level (test code = 2823-3) 4.3 {mEq/l} 3.5-5.1 Chloride Level (test code = 2075-0) 104 {mEq/l} 95-109 Carbon Dioxide (test code = 2027-9) 26 {mEq/l} 24-32 AGAP (test code = 43221-8) 12.3 {mEq/l} 10.0-20.0 Glucose Lvl (test code = 2345-7) 90 mg/dl 70-99 Adult reference range values reflect the clinical guidelinesof the [place] [employer]. Creatinine Lvl (test code = 2160-0) 1.20 mg/dl 0.50-1.40 Blood Urea Nitrogen (test code = 3094-0) 12 mg/dl 7-22 BUN/Creatinine Ratio (test code = 3097-3) 10 6-25 Total Protein (test code = 2885-2) 7.5 g/dl 6.4-8.4 Albumin Lvl (test code = 1751-7) 3.9 g/dl 3.5-5.0 Globulin (test code = 22669-8) 3.6 g/dl 2.7-4.2 A/G Ratio (test code = 1759-0) 1.1 0.7-1.6 Calcium Level Total (test code = 74888-2) 9.0 mg/dl 8.5-10.5 ALT (test code = 1743-4) 47 u/l 0-65 AST (test code = 86620-1) 27 u/l 0-37 Bili Total (test code = 1974-) 0.9 mg/dl 0.2-1.3 Alk Phos (test code = 1783-0) 67 u/l 39-136 eGFR (test code = 34465-6) 65 {ML/MIN/1.7} The eGFR is calculat ed using the CKD-EPI formula. In most young, healthyindividuals the eGFR will be >90 mL/min/1.73m2. The eGFR declines with age. AneGFR of 60-89 may be normal in some populations, particularly the elderly, forwhom the CKD-EPI formula has not been extensively validated. Use of the eGFR isnot recommended in the following populations:Individuals with unstable creatinine concentrations, including patients and those with serious co-morbid conditions.Patients with extremes in muscle mass or diet.The data above are obtained from the National Kid[employer] Education Program(NKDEP) which additionally recommends that when the eGFR is used in patientswith extremes of body mass index for purposes of drug dosing, the eGFR shouldbe multiplied by the estimated BMI. [facility]] CMP [id number] 10:31:01* Test Item Value Reference Range Interpretation Comme nts Sodium Level (test code = 2951-2) 141 {mEq/l} 135-145 Potassium Level (test code = 2823-3) 4.7 {mEq/l} 3.5-5.1 Chloride Level (test code = 2075-0) 106 {mEq/l} 95-109 Carbon Dioxide (test code = 2027-9) 28 {mEq/l} 24-32 AGAP (test code = 80139-2) 11.7 {mEq/l} 10.0-20.0 Glucose Lvl (test code = 2345-7) 89 mg/dl 70-99 Adult reference range values reflect the clinical guidelinesof the [place] [employer]. Creatinine Lvl (test code = 2160-0) 1.00 mg/dl 0.50-1.40 Blood Urea Nitrogen (test code = 3094-0) 13 mg/dl 7-22 BUN/Creatinine Ratio (test code = 3097-3) 13 6-25 Total Protein (test code = 2885-2) 7.5 g/dl 6.4-8.4 Albumin Lvl (test code = 1751-7) 4.0 g/dl 3.5-5.0 Globulin (test code = 87616-2) 3.5 g/dl 2.7-4.2 A/G Ratio (test code = 1759-0) 1.1 0.7-1.6 Calcium Level Total (test code = 51660-0) 9.2 mg/dl 8.5-10.5 ALT (test code = 1743-4) 52 u/l 0-65 AST; Above High Threshold (test code = 52566-1) 43 u/l 0-37 Alk Phos (test code = 1783-0) 68 u/l 39-136 Bili Total (test code = 1975-2) 0.6 mg/dl 0.2-1.3 eGFR (test code = 61731-4) 81 {ML/MIN/1.7} The eGFR is calculat ed using the CKD-EPI formula. In most young, healthyindividuals the eGFR will be >90 mL/min/1.73m2. The eGFR declines with age. AneGFR of 60-89 may be normal in some populations, particularly the elderly, forwhom the CKD-EPI formula has not been extensively validated. Use of the eGFR isnot recommended in the following populations:Individuals with unstable creatinine concentrations, including patients and those with serious co-morbid conditions.Patients with extremes in muscle mass or diet.The data above are obtained from the National Kidney Disease Education Program(NKDEP) which additionally recommends that when the eGFR is used in patientswith extremes of body mass index for purposes of drug dosing, the eGFR shouldbe multiplied by the estimated BMI. [facility]] C-REACTIVE [id number] 10:31:01* Test Item Value Reference Range Interpretation Comme nts CRP (test code = CRP) 3.4 mg/L <=2.9 [facility]] CBC (INCLUDES DIFF/PLT)2017-10-02 10:31:01* Test Item Value Reference Range Interpretation Comme nts WBC (test code = 6690-2) 6.2 {K/CMM} 3.7-10.4 RBC; Below Low Threshold (te st code = 789-8) 4.33 {M/CMM} 4.70-6.10 Hgb; Below Low Threshold (te st code = 718-7) 13.9 g/dl 14.0-18.0 Hct; Below Low Threshold (te st code = 60512-6) 41.6 % 42.0-54.0 MCV; Above High Threshold (t est code = 787-2) 96.0 fL 80.0-94.0 MCH; Above High Threshold (t est code = 785-6) 32.1 pg 27.0-31.0 MCHC (test code = 786-4) 33.4 g/dl 32.0-36.0 RDW (test code = 788-0) 14.5 % 11.5-14.5 Platelet (test code = 89317-7) 335 {K/CMM} 133-450 Mean Platelet Volume (test c ode = 25140-0) 7.9 fL 7.4-10.4 [facility]] [id number] 10:31:01* Test Item Value Reference Range Interpretation Comme nts Segmented Neutrophils (test code = 88775-9) 73.2 % 45.0-75.0 Monocytes (test code = 95191-4) 5.9 % 2.0-12.0 Lymphocytes; Below Low Thres hold (test code = 97078-1) 18.5 % 20.0-40.0 Eosinophils (test code = 19626-1) 2.0 % 0.0-4.0 Basophils (test code = 706-2) 0.4 % 0.0-1.0 Segs-Bands # (test code = 08250-0) 4.6 {K/CMM} 1.5-8.1 Lymphocytes # (test code = 13329-7) 1.2 {K/CMM} 1.0-5.5 Monocytes # (test code = 00177-2) 0.4 {K/CMM} 0.0-0.8 Eosinophils # (test code = 46286-7) 0.1 {K/CMM} 0.0-0.5 [facility]] SED RATE BY MODIFIED [id number] 10:31:01* Test Item Value Reference Range Interpretation Comme nts Sedimentation Rate; Above Hi gh Threshold (test code = 46267-2) 22 {mm/hr} 0-15 [facility] Notes Date/Time Note Provider Source 2024-05-08 10:25:02 Chief Complaint Patient presents with Follow-up MATT 01/03/2024 Paola Porter CMA I [facility] 2024-01-04 08:01:19 Chief Complaint Patient presents with Follow-up Follow up on Requip and is requesting a Glucometer Reba Mckeon MA II T Reba Mckeon MA, II [facility] 2024-01-03 13:06:22 Chief Complaint Patient presents with Follow-up 4 month f/u Paola Porter CMA I [facility] 2023-11-27 07:57:11 Chief Complaint Patient presents with Physical HRA -Fasting for labs Romana Morris LVN [facility] 2023-08-23 12:57:46 Chief Complaint Patient presents with Follow-up 4 month f/u Paola Porter CMA I [facility] 2023-08-20 13:38:45 Zeyad Mnoae is a 67 year old male Chief Complaint Patient presents with Follow-up 4 mo f/u T [facility] 2022-12-14 13:23:08 Formatting of this n ote is different from the original. Chief Complaint Patient presents with Follow-up 4mth Amber Pimentel CMA II T [facility]
[2025-02-17 22:02] LABS: Absolute Lymphocytes (CBC) 1.1 K/uL (0.7-4.9); Hematocrit 40.7 % (39.6-49.0); Hemoglobin 14.2 g/dL (13.6-17.9); MCH 31.9 pg (27.0-35.0); MCHC 34.9 g/dL (32.0-36.0); MCV 91.4 fL (80-100); MPV 7.8 fL (7.6-11.3); Nucleated RBC Absolute Count 0.0 (0-0); Nucleated Red Blood Cells % 0.2 % (0-0); RBC Red Blood Cell Count 4.45 M/uL (4.33-5.43); White Blood Count 5.10 thou/uL (4.3-10.9)
[2025-02-17] MEDS ORDERED: KETOROLAC 30 MG/ML INJ ONE (22:09)
[2025-02-17 22:10] LABS: PT Prothrombin Time 12.2 SECONDS (10-13.0); Protime INR 1.08
[2025-02-17] MEDS ORDERED: METOCLOPRAMIDE 10 MG/2mL INJ ONE (22:10)
[2025-02-17] MEDS ORDERED: NA CHLORIDE 0.9% 50 ML ONE (22:20)
--- NOTE | 2025-02-17 22:29 | RAD REPORT ---
EXAM: CT brain without contrast HISTORY: dizzy COMPARISON: None TECHNIQUE: Multiple contiguous axial images were obtained and a CT of the brain without contrast. Sag ittal and coronal reformats were performed. One or more of the following dose reduction techniques were used: Automated exposure control, adjust ment of the mA and/or kV according to patient size, and/or iterative reconstruction. FINDINGS: No evidence of hydrocephalus, intracranial hemorrhage, or extra-axial fluid collection. Mild brain atrophy. No evidence of midline shift or areas of brain edema. The calvarium is intact. The visualized paranasal sinuses and mastoid air cells are essentially clear . IMPRESSION: No evidence of acute intracranial abnormality.
[2025-02-17 23:30] LABS: ALT/SGPT 37.0 U/L (16-61); AST/SGOT 30.0 U/L (15-37); Albumin 4.0 g/dL (3.4-5.0); Albumin/Globulin Ratio 1.0 (1.1-1.8); Alkaline Phosphatase 70.0 U/L (45-117); Anion Gap 12.5 mEq/L (5.0-15.0); BUN Blood Urea Nitrogen 18.0 mg/dL (7-18); Bilirubin Indirect, Calculated 0.3 mg/dL (0.2-0.8); Globulin 3.9 g/dL (2.3-3.5); Glucose Level 127.0 mg/dL (74-106); Magnesium 2.2 mg/dL (1.6-2.4); NT PRO-BNP 191.0 pg/mL (<125); Potassium 3.5 mEq/L (3.5-5.1); Thyroid Stimulating Hormone 2.24 uIU/mL (0.358-3.740); Troponin High Sensitivity 7.1 pg/mL (<58.9)
--- NOTE | 2025-02-18 00:24 | ER ---
Nurse's Notes [facility] Name: Zeyad Monae Age: 69 yrs Sex: Male : 1955 Arrival Date: 02/17/2025 Time: 21:31 Bed 14 Private MD: Diagnosis: Acute Hypertensive Urgency ;Essential (primary) hypertension Presentation: 02/17 21:48 Chief complaint: Patient states: PT C/O ELEVATED B/P, DIZZINESS,, BLURRED VISION, br2 HEADACHE. DENIES N/V. SYMPTOMS BEGAN THIS MORNING. Coronavirus screen: Client denies travel out of the [place] in the last 14 days. Ebola Screen: Patient denies exposure to infectious person. Initial Sepsis Screen: Does the patient meet any 2 criteria? No. Patient's initial sepsis screen is negative. Does the patient have a suspected source of infection? No. Patient's initial sepsis screen is negative. Risk Assessment: Do you want to hurt yourself or someone else? Patient reports no desire to harm self or others. Onset of symptoms was February 17, 2025 at 08:00. 21:48 Method Of Arrival: Ambulatory br2 21:48 Acuity: LONG 3 br2 Triage Assessment: 21:52 General: Appears in no apparent distress. comfortable, Behavior is calm, cooperative. br2 Pain: Complains of pain in top of head and forehead Pain currently is 3 out of 10 on a pain scale. Respiratory: Denies shortness of breath. 21:52 Respiratory: Onset: The symptoms/episode began/occurred this morning, the patient has zm mild shortness of breath. Historical: - Allergies: 22:41 Oxycodone; zm - Home Meds: 22:41 naproxen 500 mg Oral tablet [Active]; atorvastatin 20 mg oral tablet [Active]; zm pantoprazole 20 mg oral tablet, delayed release (enteric coated) [Active]; hydroxychloroquine 200 mg oral tablet [Active]; lisinopril-hydrochlorothiazide 20-12.5 mg oral tablet [Active]; ropinirole 1 mg oral tablet [Active]; - PMHx: 21:52 Hypertensive disorder; Hypercholesterolemia; Gastroesophageal reflux disease; br2 22:41 restless leg syndrome; zm - Immunization history:: Adult Immunizations up to date. - Infectious Disease History:: Denies. - Social history:: Smoking status: Patient/guardian denies using tobacco, Patient uses alcohol, occasionally. Patient/guardian denies using street drugs. - Family history:: not pertinent. Screenin:50 [facility] ED Fall Risk Assessment (Adult) History of falling in the last 3 months, zm including since admission No falls in past 3 months (0 pts) Confusion or Disorientation No (0 pts) Intoxicated or Sedated No (0 pts) Impaired Gait No (0 pts) Mobility Assist Device Used No (0 pt) Altered Elimination No (0 pt) Score/Fall Risk Level 0 - 2 = Low Risk Oriented to surroundings, Maintained a safe environment, Educated pt \T\ family on fall prevention, incl call for assistance when getting out of bed, Assessed \T\ reinforced patient's understanding of fall precautions, Hourly rounding (assess needs \T\ fall precautionary measures) done, Used ambulatory aids as needed (educated on \T\ assisted with), Used gait belt as appropriate. Abuse screen: Denies threats or abuse. Denies injuries from another. Nutritional screening: No deficits noted. Tuberculosis screening: No symptoms or risk factors identified. Assessment: 22:08 General: Appears in no apparent distress. comfortable, Behavior is calm, cooperative. zm Pain: Denies pain. Neuro: No deficits noted. Level of Consciousness is awake, alert, obeys commands, Oriented to person, place, time, situation, Reports blurred vision dizziness, since THIS MORNING headache. Cardiovascular: No deficits noted. Denies chest pain, Heart tones S1 S2 present Capillary refill < 3 seconds in bilateral fingers Patient's skin is warm and dry. Rhythm is sinus rhythm. Respiratory: No deficits noted. Reports shortness of breath Airway is patent Respiratory effort is even, unlabored, Respiratory pattern is regular, symmetrical, Breath sounds are clear bilaterally. in right upper lobe, left upper lobe, left lower lobe and right lower lobe. GI: No deficits noted. No signs and/or symptoms were reported involving the gastrointestinal system. Abdomen is flat, non-distended, Bowel sounds present X 4 quads. : No deficits noted. No signs and/or symptoms were reported regarding the genitourinary system. EENT: No deficits noted. No signs and/or symptoms were reported regarding the EENT system. Derm: No deficits noted. No signs and/or symptoms reported regarding the dermatologic system. Skin is intact, is healthy with good turgor, Skin is pink, warm \T\ dry. Musculoskeletal: No deficits noted. No signs and/or symptoms reported regarding the musculoskeletal system. 23:10 Reassessment: Patient appears in no apparent distress at this time. Patient and/or zm family updated on plan of care and expected duration. Pain level reassessed. Patient is alert, oriented x 3, equal unlabored respirations, skin warm/dry/pink. Patient denies pain at this time. Patient states feeling better. Patient states symptoms have improved. 02/18 00:28 Reassessment: Patient appears in no apparent distress at this time. No changes from previously documented assessment. Patient and/or family updated on plan of care and expected duration. Pain level reassessed. Patient is alert, oriented x 3, equal unlabored respirations, skin warm/dry/pink. Patient denies pain at this time. Patient states feeling better. Patient states symptoms have improved. Vital Signs: 02/17 21:48 BP 170 / 93; Pulse 72; Resp 16 S; Temp 98.2(O); Pulse Ox 98% on R/A; Weight 90.72 kg br2 (R); Height 5 ft. 9 in. ; Pain 3/10; 22:50 BP 146 / 95; Pulse 97; Resp 17; Pulse Ox 97% on R/A; zm 02/18 00:28 BP 133 / 79; Pulse 63; Resp 18; Temp 98.6; Pulse Ox 100% on R/A; Pain 0/10; zm 02/17 21:48 Body Mass Index 29.53 (90.72 kg, 175.26 cm) [facility] 02/17 21:48 Pain Scale: Adult br2 02/18 00:28 Pain Scale: Adult Kam Coma Score: 02/17 21:50 Eye Response: spontaneous(4). Motor Response: obeys commands(6). Verbal Response: zm oriented(5). Total: 15. 02/18 00:28 Eye Response: spontaneous(4). Motor Response: obeys commands(6). Verbal Response: zm oriented(5). Total: 15. 01:40 Eye Response: spontaneous(4). Motor Response: obeys commands(6). Verbal Response: sp4 oriented(5). Total: 15. NIH Stroke Scale Scores: 01:40 NIHSS Score: 1 sp4 ED Course: 02/17 21:33 Patient arrived in ED. mr 21:35 Wale Carter MD is Attending Physician. sp4 21:43 Yolande House, RN is Primary Nurse. zm 21:50 Initial lab(s) drawn, by me, sent to lab. EKG done, by ED staff, reviewed by Wale Carter MD. Inserted saline lock: 18 gauge in right wrist, using aseptic technique. Blood collected. Flushed with 10 mL NS. 21:50 Client placed on continuous cardiac and pulse oximetry monitoring. NIBP monitoring zm applied. environmental monitoring technician on. Pulse ox on. NIBP on. Door closed. Noise minimized. Lights dimmed. Warm blanket given. Verbal reassurance given. 21:52 Triage completed. br2 22:03 Basic Metabolic Panel Sent. zm 22:07 T4 Free Sent. zm 22:07 Thyroid Stimulating Hormone Sent. zm 22:07 LFT's Sent. zm 22:07 Magnesium Sent. zm 22:07 NT PRO-BNP Sent. zm 22:07 PT-INR Sent. zm 22:07 Troponin HS Sent. zm 22:07 Arm band placed on left wrist. zm 22:13 CT Head Brain wo Cont In Process Unspecified. EDMS 22:33 Patient has correct armband on for positive identification. Placed in gown. Bed in low zm position. Call light in reach. Side rails up X 1. Adult w/ patient. Provided Education on: CALL LIGHT USE. 02/18 00:28 No provider procedures requiring assistance completed. IV discontinued, intact, zm bleeding controlled, No redness/swelling at site. Pressure dressing applied. 00:32 Chest Single View XRAY In Process Unspecified. EDMS Administered Medications: 02/17 22:30 Drug: cloNIDine PO 0.1 mg PO once Route: PO; zm 23:39 Follow up: Response: No adverse reaction zm 22:30 Drug: metoCLOPramide IVP 10 mg IVP once; over 1 to 2 minutes Route: IVP; Site: right zm wrist; 23:39 Follow up: Response: No adverse reaction zm 22:30 Drug: Ketorolac IVP 15 mg IVP once Route: IVP; Site: right wrist; zm 23:39 Follow up: Response: No adverse reaction zm Medication: 21:50 VIS not applicable for this client. zm Outcome: 02/18 00:23 Discharge ordered by . sp4 00:33 Discharged to home ambulatory, with significant other, 00:33 Condition: stable 00:33 Discharge instructions given to patient, significant other, Instructed on discharge instructions, follow up and referral plans. safety practices, Demonstrated understanding of instructions, follow-up care, 00:38 Patient left the ED. NIH Stroke Scale - NIH Stroke Score Date: 02/18/2025 Time: 01:40 Total Score = 1 10. Dysarthria (speech clarity - read or repeat words) - 0(Normal) 11. Extinction and Inattention (visual/tactile/auditory/spatial/personal) - 1(Present) 1a. Level of Consciousness (LOC) - 0(Alert) 1b. Level of Consciousness (LOC) (Month \T\ Age) - 0(Both) 1c. LOC Commands (Open \T\ Closes Eyes/Poultry Farmer Egg) - 0(Both) 2. Best Gaze (Lateral Gaze Paresis) - 0(Normal) 3. Visual Field Loss - 0(No visual loss) 4. Facial Palsy - 0(Normal) 5a. Left Arm: Motor (10-second hold) - 0(No drift) 5b. Right Arm: Motor (10-second hold) - 0(No drift) 6a. Left Leg: Motor (5-second hold - always test supine) - 0(No drift) 6b. Right Leg: Motor (5-second hold - always test supine) - 0(No drift) 7. Limb Ataxia (finger/nose \T\ heel/cadena - test with eyes open) - 0(Absent) 8. Sensory Loss (pinprick arms/legs/face) - 0(Normal) 9. Best Language: Aphasia (description/naming/reading) - 0(No aphasia) Initials: sp4 Signatures: Dispatcher [employer] EDMS Radha Porter, Romario Doss mr Yolande House RN RN zm Potepalov, Sergey, MD MD sp4 Melva Neri RN RN br2 Corrections: (The following items were deleted from the chart) 02/17 22:26 22:07 CREATINE PHOSPHOKINASE+C.LAB.BRZ drawn and sent. EDTX 22:49 21:52 Allergies: No Known Allergies; br2
--- NOTE | 2025-02-18 00:24 | EDPHYS ---
Physician Documentation [facility] Name: Zeyad Monae Age: 69 yrs Sex: Male : 1955 Arrival Date: 02/17/2025 Time: 21:31 Bed 14 Private MD: ED Physician Wale Carter HPI: 02/17 21:35 This 69 yrs old Other Race Male presents to ER via Unassigned with complaints of High sp4 Blood Pressure, Breathing Difficulty, Vision Problem, Dizziness. 02/18 01:33 69-year-old male presents with feeling unwell, starting at the new wound with elevated sp4 blood pressure 170/102 stating he has mild headache dizziness nausea feeling clammy.. History of hypertension patient takes lisinopril 20 mg daily, HCTZ 12.5 mg daily. Patient also takes atorvastatin, and has history of restless legs for which she takes ropinirole. Headaches and has history of acid reflux for which she takes pantoprazole. Historical: - Allergies: 02/17 22:41 Oxycodone; zm - Home Meds: 22:41 naproxen 500 mg Oral tablet [Active]; atorvastatin 20 mg oral tablet [Active]; zm pantoprazole 20 mg oral tablet, delayed release (enteric coated) [Active]; hydroxychloroquine 200 mg oral tablet [Active]; lisinopril-hydrochlorothiazide 20-12.5 mg oral tablet [Active]; ropinirole 1 mg oral tablet [Active]; - PMHx: 21:52 Hypertensive disorder; Hypercholesterolemia; Gastroesophageal reflux disease; br2 22:41 restless leg syndrome; zm - Immunization history:: Adult Immunizations up to date. - Infectious Disease History:: Denies. - Social history:: Smoking status: Patient/guardian denies using tobacco, Patient uses alcohol, occasionally. Patient/guardian denies using street drugs. - Family history:: not pertinent. ROS: 02/18 01:33 Constitutional: Negative for fever, chills, and weight loss, positive for headache, sp4 dizziness, nausea, feeling clammy and unwell All other systems are negative, Exam: 01:33 Constitutional: This is a well developed, well nourished patient who is awake, alert, sp4 and in no acute distress. Head/Face: Normocephalic, atraumatic. Eyes: Pupils equal round and reactive to light, extra-ocular motions intact. Lids and lashes normal. Conjunctiva and sclera are not injected. Cornea within normal limits. Periorbital areas with no swelling, redness, or edema. ENT: Nares patent. No nasal discharge, no septal abnormalities noted. Tympanic membranes are normal and external auditory canals are clear. Oropharynx with no redness, swelling, or masses, exudates, or evidence of obstruction, uvula midline. Mucous membranes moist. Neck: Trachea midline, no thyromegaly or masses palpated, and no cervical lymphadenopathy. Supple, full range of motion without nuchal rigidity, or vertebral point tenderness. Chest/axilla: Normal chest wall appearance and motion. Nontender with no deformity. No lesions are appreciated. Cardiovascular: Regular rate and rhythm with a normal S1 and S2. No gallops, murmurs, or rubs. No pulse deficits. Respiratory: Lungs have equal breath sounds bilaterally, clear to auscultation and percussion. No rales, rhonchi or wheezes noted. No increased work of breathing, no retractions or nasal flaring. Abdomen/GI: Soft, with normal bowel sounds. No distension or tympany. No guarding or rebound. No evidence of tenderness throughout. Back: No spinal tenderness. No costovertebral tenderness. Skin: Warm, dry with normal turgor. Normal color with no rashes, no lesions, and no evidence of cellulitis. MS/ Extremity: Pulses equal, no cyanosis. Neurovascular intact. Full, normal range of motion. Neuro: Awake and alert, GCS 15, oriented to person, place, time, and situation. Cranial nerves II-XII grossly intact. Motor strength 5/5 in all extremities. Sensory grossly intact. Psych: Awake, alert, with orientation to person, place and time. Behavior, mood, and affect are within normal limits 01:33 ECG was reviewed by the Attending Physician. EKG at 2150 normal sinus rhythm normal EKG Vital Signs: 02/17 21:48 BP 170 / 93; Pulse 72; Resp 16 S; Temp 98.2(O); Pulse Ox 98% on R/A; Weight 90.72 kg br2 (R); Height 5 ft. 9 in. ; Pain 3/10; 22:50 BP 146 / 95; Pulse 97; Resp 17; Pulse Ox 97% on R/A; zm 02/18 00:28 BP 133 / 79; Pulse 63; Resp 18; Temp 98.6; Pulse Ox 100% on R/A; Pain 0/10; zm 02/17 21:48 Body Mass Index 29.53 (90.72 kg, 175.26 cm) br2 02/17 21:48 Pain Scale: Adult br2 02/18 00:28 Pain Scale: Adult zm NIH Stroke Scale Scores: 01:40 NIHSS Score: 1 sp4 Akm Coma Score: 02/17 21:50 Eye Response: spontaneous(4). Motor Response: obeys commands(6). Verbal Response: zm oriented(5). Total: 15. 02/18 00:28 Eye Response: spontaneous(4). Motor Response: obeys commands(6). Verbal Response: zm oriented(5). Total: 15. 01:40 Eye Response: spontaneous(4). Motor Response: obeys commands(6). Verbal Response: sp4 oriented(5). Total: 15. MDM: 02/17 21:37 Medical Screening Exam initiated sp4 02/18 00:21 ED course: Improved . sp4 01:32 ED course: EXAM: XR Chest, 1 View CLINICAL HISTORY: The patient is 69 years old and is sp4 Male; Evaluation for heart failure. TECHNIQUE: Frontal view of the chest. COMPARISON: XR Chest 05/14/2019 Report only. FINDINGS: LUNGS: Unremarkable. No consolidation. PLEURAL SPACE: Unremarkable. No pneumothorax. HEART: Unremarkable. No cardiomegaly. MEDIASTINUM: Unremarkable. Normal mediastinal contour. BONES/JOINTS: Unremarkable. No acute fracture. IMPRESSION: No acute cardiopulmonary findings. Followup PA and lateral views would be helpful if symptoms persist. . ED course: EXAM: CT brain without contrast HISTORY: dizzy COMPARISON: None TECHNIQUE: Multiple contiguous axial images were obtained and a CT of the brain without contrast. Sagittal and coronal reformats were performed. One or more of the following dose reduction techniques were used: Automated exposure control, adjustment of the mA and/or kV according to patient size, and/or iterative reconstruction. FINDINGS: No evidence of hydrocephalus, intracranial hemorrhage, or extra-axial fluid collection. Mild brain atrophy. No evidence of midline shift or areas of brain edema. The calvarium is intact. The visualized paranasal sinuses and mastoid air cells are essentially clear. IMPRESSION: No evidence of acute intracranial abnormality. . 01:40 Differential diagnosis: hypertensive crisis, Malignant HTN, CVA. Data reviewed: vital [facility] signs, nurses notes. 01:40 Consideration of Admission/Observation Escalation of care including sp4 admission/observation considered. 02/17 21:37 Order name: Basic Metabolic Panel; Complete Time: 23:45 [facility] 02/17 21:37 Order name: CBC with Diff; Complete Time: 23:45 [facility] 02/17 21:37 Order name: LFT's; Complete Time: 23:45 [facility] 02/17 21:37 Order name: Magnesium; Complete Time: 23:45 [facility] 02/17 21:37 Order name: NT PRO-BNP; Complete Time: 23:45 [facility] 02/17 21:37 Order name: PT-INR; Complete Time: 23:45 [facility] 02/17 21:37 Order name: Troponin HS; Complete Time: 23:45 [facility] 02/17 21:59 Order name: T4 Free; Complete Time: 23:45 [facility] 02/17 21:59 Order name: Thyroid Stimulating Hormone; Complete Time: 23:45 [facility] 02/17 22:27 Order name: Creatine Phosphokinase; Complete Time: 23:45 [facility] 02/17 22:03 Order name: CT Head Brain wo Cont; Complete Time: 23:45 [facility] 02/17 23:45 Order name: Chest Single View XRAY [facility] 02/17 21:37 Order name: EKG; Complete Time: 21:38 [facility] 02/17 21:37 Order name: Cardiac monitoring; Complete Time: 22:02 [facility] 02/17 21:37 Order name: EKG - Nurse/Tech; Complete Time: 22:02 [facility] 02/17 21:37 Order name: IV Saline Lock; Complete Time: 22:02 [facility] 02/17 21:37 Order name: Labs collected and sent; Complete Time: 22:02 [facility] 02/17 21:37 Order name: O2 Per Protocol; Complete Time: 22:02 [facility] 02/17 21:37 Order name: O2 Sat Monitoring; Complete Time: 22:02 4 EC/16 21:50 Rate is 69 beats/min. Rhythm is regular, Normal Sinus Rhythm. QRS [place] is Normal. DC sp4 interval is normal. QRS interval is normal. QT interval is normal. No Q waves. T waves are Normal. No ST changes noted. Clinical impression: Normal ECG. Interpreted by me. Reviewed by me. Administered Medications: 22:30 Drug: cloNIDine PO 0.1 mg PO once Route: PO; zm 23:39 Follow up: Response: No adverse reaction zm 22:30 Drug: metoCLOPramide IVP 10 mg IVP once; over 1 to 2 minutes Route: IVP; Site: right zm wrist; 23:39 Follow up: Response: No adverse reaction zm 22:30 Drug: Ketorolac IVP 15 mg IVP once Route: IVP; Site: right wrist; zm 23:39 Follow up: Response: No adverse reaction zm Disposition: 02/18 01:40 Chart complete. sp4 Disposition Summary: 02/18/25 00:23 Discharge Ordered Notes: Location: Home sp4 Problem: new sp4 Symptoms: have improved sp4 Condition: Stable sp4 Diagnosis - Acute Hypertensive Urgency sp4 - Essential (primary) hypertension sp4 Followup: sp4 - With: Private Physician - When: 7 - 10 days - Reason: Recheck today's complaints Discharge Instructions: - Discharge Summary Sheet sp4 - Hypertension, Adult, [id number] sp4 Forms: - Patient Portal Instructions sp4 NIH Stroke Scale - NIH Stroke Score Date: 02/18/2025 Time: 01:40 Total Score = 1 10. Dysarthria (speech clarity - read or repeat words) - 0(Normal) 11. Extinction and Inattention (visual/tactile/auditory/spatial/personal) - 1(Present) 1a. Level of Consciousness (LOC) - 0(Alert) 1b. Level of Consciousness (LOC) (Month \T\ Age) - 0(Both) 1c. LOC Commands (Open \T\ Closes Eyes/Windows Infrastructure Engineer) - 0(Both) 2. Best Gaze (Lateral Gaze Paresis) - 0(Normal) 3. Visual Field Loss - 0(No visual loss) 4. Facial Palsy - 0(Normal) 5a. Left Arm: Motor (10-second hold) - 0(No drift) 5b. Right Arm: Motor (10-second hold) - 0(No drift) 6a. Left Leg: Motor (5-second hold - always test supine) - 0(No drift) 6b. Right Leg: Motor (5-second hold - always test supine) - 0(No drift) 7. Limb Ataxia (finger/nose \T\ heel/[place] - test with eyes open) - 0(Absent) 8. Sensory Loss (pinprick arms/legs/face) - 0(Normal) 9. Best Language: Aphasia (description/naming/reading) - 0(No aphasia) Initials: sp4 Signatures: Dispatcher [employer] EDMS Yolande House, RN RN Wlae Carter MD MD sp4 Melva Neri RN RN br2 Corrections: (The following items were deleted from the chart) 02/17 21:58 21:49 THYROID STIMULAT HORMONE+C.LAB.BRZ ordered. EDMS EDMS 21:58 21:49 T4 FREE+C.LAB.BRZ ordered. EDMS EDMS 22:26 22:03 CREATINE PHOSPHOKINASE+C.LAB.BRZ ordered. EDMS EDMS 22:49 21:52 Allergies: No Known Allergies; br2 23:45 23:45 Chest Single View+RAD.RAD.BRZ ordered. EDMS EDMS
[2025-02-18 01:02] VITALS: BP 133/79; TEMP 98.6; O2SAT 100
--- NOTE | 2025-02-18 06:27 | RAD REPORT ---
EXAM: XR Chest, 1 View CLINICAL HISTORY: The patient is 69 years old and is Male; Evaluation for heart failure. TECHNIQUE: Frontal view of the chest. COMPARISON: XR Chest 05/14/2019 Report only. FINDINGS: LUNGS: Unremarkable. No consolidation. PLEURAL SPACE: Unremarkable. No pneumothorax. HEART: Unremarkable. No cardiomegaly. MEDIASTINUM: Unremarkable. Normal mediastinal contour. BONES/JOINTS: Unremarkable. No acute fracture. IMPRESSION: No acute cardiopulmonary findings. Followup PA and lateral views would be helpful if symptoms persist . Electronically signed by: Anselmo Hennessy MD 02/18/2025 01:21 AM CDT RP Due to temporary technical issues with the PACS/[employer] reporting system, reports are being emmy d by the in-house radiologist without review as a courtesy to ensure prompt reporting the interpreting radiologist is fully responsible for the content of the report. Transcribed Date/Time: 02/18/2025 6:26 AM
== END 2025-02-18 00:38 | disposition home or self-care (01) ==
LOC: ER 21:31
DX: I16.0 Hypertensive urgency (principal); I10 Essential (primary) hypertension
CPT/HCPCS: 93005; 85025; 80048; 36415; 83735; 82550; 85610; 80076; 84443; 84484; 84439; 83880; 70450; 71045; 96375; 96374; 99285; J2765